=== PATIENT | male | born 1950 | race Caucasian/White ===

== ENCOUNTER 2017-01-21 05:56 | Inpatient (IN) | payer OTHER ==
--- NOTE | 2017-01-01 10:12 | PAT Medication Instructions ---
Service Date Jan 01, 2017. Current Home Medication List Rooks (Rooks), 1,300 MG PO HS Amlodipine (Norvasc), 5 MG PO QAM Aspirin (Aspirin Ec), 81 MG PO QPM Atorvastatin (Lipitor), 40 MG PO HS Celecoxib (Celebrex), 2 CAP PO QAM Citalopram Hydrobromide (Citalopram Hydrobromide), 1 TAB PO QAM Furosemide (Lasix), 40 MG PO QAM Gabapentin (Neurontin), 100 MG PO TID Magnesium Oxide (Mag-Ox), 400 MG PO BID Methylcellulose (Laxative) (Citrucel Fiber Laxative), 15 ML PO QPM Metoprolol Succinate (Toprol Xl), 25 MG PO QAM Multivitamin (Multivitamin), 1 TAB PO QAM Nitroglycerin (Nitrostat), 0.4 MG UT PRN Oxycodone/Acetaminophen 5MG/325MG (Percocet 5MG/325MG), 1-2 TABLETS PO Q4H PRN for Pain Terazosin Hcl (Hytrin), 10 MG PO HS Tizanidine (Zanaflex), 4 MG PO HS PRN for therapeutic program worker Instructions For Your Scheduled Surgery Celecoxib (Celebrex), 2 CAP PO QAM (check with surgeon for instructions) - Hold the following medications the morning of surgery: Multivitamin (Multivitamin), 1 TAB PO QAM Magnesium Oxide (Mag-Ox), 400 MG PO BID Furosemide (Lasix), 40 MG PO QAM Tizanidine (Zanaflex), 4 MG PO HS PRN for RN - Take the following medications the morning of surgery with a sip of water: Nitroglycerin (Nitrostat), 0.4 MG UT PRN Gabapentin (Neurontin), 100 MG PO TID Citalopram Hydrobromide (Citalopram Hydrobromide), 1 TAB PO QAM Amlodipine (Norvasc), 5 MG PO QAM Oxycodone/Acetaminophen 5MG/325MG (Percocet 5MG/325MG), 1-2 TABLETS PO Q4H PRN for Pain - Take the following medications as scheduled the night before surgery: Terazosin Hcl (Hytrin), 10 MG PO HS Nitroglycerin (Nitrostat), 0.4 MG UT PRN Magnesium Oxide (Mag-Ox), 400 MG PO BID Methylcellulose (Laxative) (Citrucel Fiber Laxative), 15 ML PO QPM Gabapentin (Neurontin), 100 MG PO TID Atorvastatin (Lipitor), 40 MG PO HS Aspirin (Aspirin Ec), 81 MG PO QPM (check with surgeon for instructions) Oxycodone/Acetaminophen 5MG/325MG (Percocet 5MG/325MG), 1-2 TABLETS PO Q4H PRN for Pain Tizanidine (Zanaflex), 4 MG PO HS PRN for RN Rooks (Rooks), 1,300 MG PO HS If you have any questions please call us at [phone] (Alessandra Dwyer PA-C ) or [phone] or [phone]
[2017-01-01 10:47] LABS: BASO % 0.6 %; BASO ABS # 0.03 K/uL (0-0.2); COMPLETE YES; EOS % 3.5 %; HEMATOCRIT 43.3 % (42-52); IG% 0.2 %; LYMPH % 22.8 %; LYMPH ABS # 1.24 K/uL (1.2-3.4); MEAN CELL VOLUME 90.2 fL (80-100); MEAN CORPUSCULAR HEMOGLOBIN 30.2 pg (25-34); MEAN CORPUSCULAR HGB CONC 33.5 g/dl (32-36); MEAN PLATELET VOLUME 9.2 fL (7.4-10.4); MONO % 12.5 %; NEUT % 60.4 %; PLATELET COUNT 192 K/uL (130-400); WHITE BLOOD COUNT 5.43 K/uL (4.8-10.8)
[2017-01-01 10:54] LABS: URINE APPEARANCE CLEAR (CLEAR); URINE BILIRUBIN NEG (NEG); URINE COLOR YELLOW; URINE NITRITE NEG (NEG); URINE SPECIFIC GRAVITY 1.009 (1.000-1.030); UROBILINOGEN NEG (NEG)
[2017-01-01 10:58] LABS: MANUAL MICROSCOPIC REQUIRED? NO; REVIEW REQ? NO
[2017-01-01 11:15] LABS: BUN/CREATININE RATIO 19.8 (10-20); CALCIUM 9.1 mg/dl (8.5-10.1); CREATININE 0.82 mg/dl (0.60-1.40); POTASSIUM 4.3 mmol/L (3.5-5.1)
--- NOTE | 2017-01-19 10:15 | HISTORY & PHYSICAL EXAMINATION ---
DATE OF ADMISSION: 01/21/2017 HISTORY OF PRESENT ILLNESS: The patient presents to our office with the complaint of lower back and buttock pain. He noted a foot drop beginning in May of 2016 on the left. He does have an AFO, but says it does not fit him properly, therefore, does not wear it. He is requiring the use of a cane for ambulation since May 2016 as well. He has back pain, describes the pain across the lumbar spine, down both legs, left worse than right. He developed bilateral buttock, anterior thigh, numbness along the medial left foot. Denies bowel or bladder dysfunction or saddle paresthesias. Pain does awaken him at night. He has trialed point of care technician without relief. Takes Percocet, Zanaflex on a sparing basis for pain control. PAST MEDICAL HISTORY: Significant for cardiac disease including 1 stents in July 2006, hypertension, BPH, sleep apnea, arthritis. PAST SURGICAL HISTORY: Significant for left knee arthroscopy 1980, right hand surgery, right knee arthroscopy in 2000, heart catheterization in 2005, repair of ruptured right femoral artery July 2006, right shoulder surgery 2006, revision right shoulder surgery 2007, hardware removal right shoulder 2008, left knee arthroscopy 2008, and right shoulder scapulothoracic fusion April 2010. MEDICATIONS: Include Percocet 5/325 q. 4 hours p.r.n., furosemide 40 mg 1 tab in the morning, Norvasc 5 mg daily, Zocor 40 mg at bedtime, Celebrex 200 mg a day, Hytrin 10 mg at bedtime, Zanaflex 4 mg at bedtime p.r.n., Toprol-XL 25 mg daily, Nasacort 1 spray each nostril daily, Plavix 75 mg in the morning, NitroQuick p.r.n., magnesium oxide 400 mg twice a day, Citrucel 1 tablespoon daily, alfalfa tablet 650 mg 2 tabs at bedtime, aspirin 325 mg in the morning and a CPAP machine. ALLERGIES: INCLUDE FLOMAX AND SULFA. SOCIAL HISTORY: He is . He has 1 child. He is retired. Denies alcohol. Denies tobacco. REVIEW OF SYSTEMS: Significant for joint pain, stiffness, and muscle pain. FAMILY HISTORY: Noncontributory. PHYSICAL EXAMINATION: VITAL SIGNS: He is 6 feet 4 inches. HEENT: Speech appropriate. CARDIOPULMONARY: No gross abnormalities. ABDOMEN: Soft, nontender. GENITOURINARY: Deferred. NEUROLOGIC: Cranial nerves II-XII grossly intact. MUSCULOSKELETAL: He ambulates with a cane and has extremely antalgic gait on the left. He is unable to toe walk and heel walk on the left. He has 1/4 patellar and Achilles reflexes. Negative tension signs. He has left-sided foot drop. Breakaway weakness also over the left quadriceps and hamstring. Strength is intact right leg. No evidence of ankle clonus. ASSESSMENT: Severe neural foraminal stenosis L4-5, severe central stenosis L1 through S1. PLAN: At this point in time, we have discussed surgical intervention which would require lumbar decompression L1 through S1 with instrumented fusion T10-S1 including iliac bolts bilaterally. He understands this will not improve his foot drop. The goal of surgery is to improve quality of life and leg radicular leg pain. Risks, benefits, pros, and cons are outlined with him in detail. He would like to proceed with the above-mentioned surgical planning.
[~2017-01-21] VITALS: Ht 193 cm; Wt 114.5 kg
[2017-01-21] VITALS (7 sets, daily range): BP systolic 101–173; BP diastolic 55–80; PULSE 78–102; TEMP 36.4–37.1; O2SAT 96–100; Ht 193 cm; Wt 114.5 kg
[~2017-01-21 05:56] MED LIST: CLB100 PO; OXYC-57 PO
[2017-01-21] MEDS ORDERED: CEFAZOLIN 2000 MG/60 ML D5W IV SCH (06:00)
[2017-01-21] MEDS ORDERED: LACTATED RINGER'S 1000ML 1,000 ML IV SCH (06:00)
[2017-01-21] MEDS ORDERED: MIDAZOLAM HCL 1 MG/ML 2ML VIAL ONE (06:41)
[2017-01-21] MEDS ORDERED: FENTANYL CITRATE INJ 50 MCG/1 ML 2 ML VIAL ONE ×6 (06:41→12:46)
[2017-01-21] MEDS ORDERED: ALBUMIN HUMAN 5% 12.5 GM/250 ML VIAL IV ONE (06:48)
[2017-01-21] MEDS ORDERED: BACITRACIN 50000 UNIT VIAL ONE ×2 (06:54→10:56)
[2017-01-21] MEDS ORDERED: BUPIVACAINE/EPINEPHRINE 0.5% MPF 1:200,000 30 ML VIAL ONE (06:54)
[2017-01-21] MEDS ORDERED: SODIUM CHLORIDE 0.9% PF 50 ML VIAL ONE (06:54)
--- NOTE | 2017-01-21 07:35 | History & Physical Bridge Note ---
H&P Re-Evaluation Bridge Note: I have examined the patient, reviewed the History & Physical and in the interval since the performance of the History & Physical I have noted the following changes of clinical significance: No changes noted
[2017-01-21] MEDS ORDERED: THROMBIN FOR SOLN 20000 UNIT KIT ONE ×2 (07:53→08:29)
[2017-01-21] MEDS ORDERED: HYDROmorphone INJ 2 MG/ML SYR/VIAL ONE ×4 (08:13→12:46)
[2017-01-21] MEDS ORDERED: ATROPINE SULFATE 0.1 MG/ML 5ML SYR IV PRN (08:45)
[2017-01-21] MEDS ORDERED: LABETALOL HCL IV 5 MG/ML 20ML IV PRN (08:45)
[2017-01-21] MEDS ORDERED: ONDANSETRON INJ 2 MG/ML 2 ML VIAL IV PRN ×2 (08:45→12:30)
[2017-01-21] MEDS ORDERED: MEPERIDINE HCL 25 MG/ML CARP IV PRN (08:45)
[2017-01-21] MEDS ORDERED: EpHEDrine SULFATE INJ 50 MG/ML AMP IV PRN (08:45)
[2017-01-21] MEDS ORDERED: FENTANYL CITRATE INJ 50 MCG/1 ML 2 ML VIAL IV PRN (08:45)
[2017-01-21] MEDS ORDERED: HYDROmorphone INJ 1 MG/ML SYR IV PRN (08:45)
[2017-01-21] MEDS ORDERED: VOLUVEN IN NSS ONE (09:22)
[2017-01-21 10:45] LABS: HEMATOCRIT 32.4 % (42-52)
[2017-01-21 11:38] LABS: HEMATOCRIT 29.9 % (42-52)
[2017-01-21] MEDS ORDERED: LIDOCAINE HCL 2% 2 ML VIAL (20MG/ML) ONE (12:07)
[2017-01-21] MEDS ORDERED: ROCURONIUM BROMIDE 10 MG/ML 5 ML VIAL ONE ×2 (12:07→12:48)
[2017-01-21] MEDS ORDERED: PROPOFOL IV EMULSION 10 MG/ML 20 ML VIAL IV ONE (12:07)
[2017-01-21] MEDS ORDERED: DEXAMETHASONE SOD INJ 4 MG/ML VIAL ONE (12:07)
[2017-01-21] MEDS ORDERED: ONDANSETRON INJ 2 MG/ML 2 ML VIAL ONE ×3 (12:07→12:48)
[2017-01-21] MEDS ORDERED: CALCIUM CHLORIDE 10% 10 ML SYR ONE (12:22)
[2017-01-21] MEDS ORDERED: PHENYLEPHRINE 100MCG/ML 5ML SYR ONE ×2 (12:22→12:48)
[2017-01-21] MEDS ORDERED: EpHEDrine SULFATE 50MG/5ML SYR ONE ×2 (12:22→12:48)
[2017-01-21] MEDS ORDERED: CEFAZOLIN SOD 1 GM VIAL ONE (12:22)
[2017-01-21] MEDS ORDERED: SODIUM CHLORIDE 0.9% 1000ML 1,000 ML IV SCH (12:28)
--- NOTE | 2017-01-21 12:28 | [facility] Post Operative Brief Note ---
Immediate Operative Summary Operative Date Jan 21, 2017. Pre-Operative Diagnosis Severe neural foraminal stenosis L4-5, severe central stenosis L1 through S1. Post-Operative Diagnosis same as pre-operative Procedure(s) Performed T11-S1 Lumbar Laminectomy, Decompression, Pedicle Screw Fixation, Placement of Interbody Device L4-L5 L5-S1, Posterior Spinal Fusion T11-S1 Posterolateral Fusion, Application of Radha, Bone Morphogenetic Protein, Iliac [place] Fixation , Prophylactic use of Duraseal Surgeon Dr. Tavo Pierce Rn Trauma Surgeon(s) Becky Cowart PA-C Estimated Blood Loss 2 liters Findings stenosis Specimens none per surgeon
[2017-01-21] MEDS ORDERED: FLOSEAL HEMOSTATIC MATRIX 10ML TOP ONE (12:29)
[2017-01-21] MEDS ORDERED: ACETAMINOPHEN IV 100 ML IV PRN (12:30)
[2017-01-21] MEDS ORDERED: ALUMINUM/MAGNESIUM SUSP 30 ML UDC PO PRN (12:30)
[2017-01-21] MEDS ORDERED: NALOXONE HCL 0.4 MG/1 ML VIAL/CARP IV PRN ×2 (12:30)
[2017-01-21] MEDS ORDERED: BISACODYL 10 MG SUPP PR PRN (12:30)
[2017-01-21] MEDS ORDERED: SOD PHOSPHATE/SOD BIPHOSPHATE ENEMA 132 ML BTL PR PRN (12:30)
[2017-01-21] MEDS ORDERED: FAMOTIDINE 20 MG TAB PO PRN (12:30)
[2017-01-21] MEDS ORDERED: PROMETHAZINE HCL INJ 12.5 MG in SODIUM CHLORIDE 0.9% 50ML 50 ML IV PRN (12:30)
[2017-01-21] MEDS ORDERED: HYDROmorphone HCL 0.5MG/ML 50 ML CASSETTE IV PRN (12:30)
[2017-01-21] MEDS ORDERED: DO NOT ADMINISTER FLU VACCINE PRN ×3 (12:30)
[2017-01-21] MEDS ORDERED: METOCLOPRAMIDE HCL INJ 5 MG/ML 2 ML VIAL IV PRN (12:30)
[2017-01-21] MEDS ORDERED: DURASEAL DURAL SEALANT 5ML TOP ONE (12:30)
[2017-01-21] MEDS ORDERED: DO NOT ADMINISTER PNEUMOCOCCAL VACCINE PRN ×2 (12:30)
[2017-01-21] MEDS ORDERED: hydrOXYzine HCL 25 MG TAB PO PRN (12:30)
[2017-01-21] MEDS ORDERED: NITROGLYCERIN 0.4 MG SL PER TAB CHARGE UT PRN (12:30)
[2017-01-21] MEDS ORDERED: MAGNESIUM HYDROXIDE SUSP 30 ML UDC PO PRN (12:30)
[2017-01-21] MEDS ORDERED: LORAZEPAM INJ 0.5 MG in SYRINGE 0 ML IV PRN (12:30)
[2017-01-21] MEDS ORDERED: LORAZEPAM 0.5 MG TAB PO PRN (12:30)
[2017-01-21] MEDS ORDERED: NEOSTIGMINE METHYLSULFATE 1 MG/ML 10ML VIAL ONE (12:48)
[2017-01-21] MEDS ORDERED: GLYCOPYRROLATE INJ 0.2 MG/ML VIAL ONE (12:48)
[2017-01-21] MEDS ORDERED: HYDROmorphone HCL 0.5MG/ML 50 ML CASSETTE ONE (13:02)
--- NOTE | 2017-01-21 13:21 | OPERATIVE REPORT ---
DATE OF OPERATION: 01/21/2017 PREOPERATIVE DIAGNOSIS: Spinal stenosis. POSTOPERATIVE DIAGNOSIS: Same. PROCEDURE PERFORMED: 1. Lumbar decompression, medial facetectomy, and foraminotomy L1-L2, L2-L3, L3-L4, L4-5, L5-S1. 2. Posterior spinal fusion T10-S1. 3. Bilateral SI joint fusion. 4. Placement of posterior segmental instrumentation using Medicrea rods and screws at T11-S1 including bilateral iliac bolts and a crosslink. 5. Interbody fusion L4-L5 and L5-S1. 6. Placement of PEEK cage 12 x 26 mm at L4-L5 and 14 x 26 at L5-S1. 7. Placement of locally harvested morcellized autograft in posterior gutters. 8. Placement of Infuse collagen sponge combined with Mastergraft in posterior gutters and Radha bone grafting in the interbody spaces. SURGEON: Dr. Tavo Pierce. TRACK SURFACING MACHINE OPERATOR: Due to the complex nature of the procedure, the entire surgery was performed with the oceanographer assistant of Becky Cowart PA-C. The health assistant, under direct supervision, was involved in the actual performance of all aspects of the surgical procedure including hemostasis, tissue retraction and incision, instrument management, patient positioning, and wound closure. ANESTHESIA: General. DISPOSITION: The patient awakened and taken to PACU in stable condition. HISTORY OF PATIENT'S PROBLEMS: This is a 66-year-old male that presents with above-mentioned diagnosis. After failing an extensive course of nonoperative care, elected to undergo the above-mentioned procedure. Risks, benefits, pros, cons, and alternatives were outlined in detail preoperatively. OPERATION AND FINDINGS: The patient was met with preoperatively, the case discussed and all questions were addressed. At that point the patient was taken back to operative suite and after undergoing successful general endotracheal intubation by incision of the foot was placed in prone position on Aron table atop Robe frame. All bony prominences were well padded and the eyes were inspected to ensure there was no external pressure placed upon them. At this point, the lumbar spine was prepped and draped in normal sterile fashion. Sharp dissection with the assistance of Bovie cautery performed down to and exposing the lamina and transverse processes of T10, T11, T12, and L1, L2, L3, L4, L5 and the bilateral sacral ala and SI joints. From a caudal to cephalad fashion, complete laminectomy of L5, L4, L3, L2 and L1 was performed addressing severe central lateral recess and foraminal disease. After this was complete, pedicle screws were then placed in T11-T12, L1, L2, L3, L4, L5 and S1 levels as well as bilateral iliac bolts through a transforaminal approach on the right, a complete discectomy of L5-S1 was performed, endplates curetted to subcortical bleeding bone and a 14 x 26 mm PEEK cage filled with Radha bone grafting tapped into position. I then proceeded to L4-L5 and again through a transforaminal approach on the right, a complete discectomy was performed, endplates curetted to subcortical bleeding bone and a 12 x 26 mm PEEK cage filled with Radha bone grafting tapped into position. We did appreciate thinning of the dura L4-L5 on the left and placed a few mL of DuraSeal over this region prophylactically. Appropriate size rods were then cut, contoured and locked into final position bilaterally including a crosslink and the transverse processes of T10, T11, T12, L1, L2, L3, L4, L5 and sacral ala bilateral SI joints were then burred to subcortical bleeding bone. Infused collagen sponge combined with Mastergraft and locally harvested, autograft was packed in the SI joint and in the posterolateral gutters T10 to the ala. A 7 flat SUSANNA drain was inserted. Incision was closed with 1-0 Vicryl in the fascia, 2-0 Vicryl subcutaneously, 4-0 Monocryl for final skin closure. Steri-Strips and sterile dressing placed. The patient was awakened and taken to PACU in stable condition. I attest to the content of the Intraoperative Record and any orders documented therein. Any exceptio ns are noted below.
[2017-01-21 13:26] LABS: HEMATOCRIT 30.8 % (42-52)
--- NOTE | 2017-01-21 13:43 | Anesthesiology Progress Note ---
Anesthesia Post Op Note Date & Time Jan 21, 2017 at 13:42 Vital Signs Pain Intensity: 2 Vital Signs Past 12 Hours Date Time Temp Pulse Resp B/P Pulse Ox O2 Delivery O2 Flow Rate FiO2 01/21/17 13:30 36.4 83 14 114/52 99 Nasal Cannula 4 01/21/17 13:20 92 14 110/49 100 Mask 10 01/21/17 13:10 84 14 124/53 100 Mask 10 01/21/17 13:00 36.3 87 16 127/51 100 Mask 10 01/21/17 06:20 36.8 78 20 173/80 96 Room Air Notes Mental Status: alert / awake / arousable, participated in evaluation Pt Amnestic to Procedure: Yes Nausea / Vomiting: adequately controlled Pain: adequately controlled Airway Patency, RR, SpO2: stable & adequate BP & HR: stable & adequate Hydration State: stable & adequate Anesthetic Complications: no major complications apparent
--- NOTE | 2017-01-21 13:50 | DIAGNOSTIC IMAGING REPORT ---
LUMBAR SPINE, INTRAOPERATIVE FLUOROSCOPY HISTORY: T10-S1 fusion. FLUOROSCOPY TIME: 57 seconds. FINDINGS: Intraoperative fluoroscopy was provided for the lumbar spine. 5 fluoroscopic spot images were obtained. Posterior decompression and fusion from T10 through S1 with pedicle screws and rods. There are bilateral iliac bolts. The hardware appears intact. IMPRESSION: Fluoroscopy provided for a T10-S1 posterior decompression fusion. Electronically signed by: Sai Puckett M.D. 01/21/2017 1:49 PM Dictated Date/Time: 01/21/2017 1:48 PM
[2017-01-21] MEDS ORDERED: GABAPENTIN 100 MG CAP PO SCH (14:00)
[2017-01-21] MEDS: SODIUM CHLORIDE 0.9% 1000ML 1,000 ML IV SCH ×2 (15:10→18:54)
--- NOTE | 2017-01-21 15:48 | Medical Consult ---
Consultation Date of Consultation: Jan 21, 2017. Attending Physician: Tavo Pierce D.O. Reason for Consultation: postop medical management History of Present Illness This is a 66 year old male with PMH of CAD s/p stent 2005, HTN, HL, sleep apnea on CPAP, BPH, who underwent T11-S1 decompression/ fusion by Dr. Pierce today. Estimated blood loss was 2 liters. He was transfused 1 unit of blood in the OR. Hg dropped from 11.1 to 9.8 then 10.0. Patient had presented with back pain with radicular pain and left foot drop. Pt reports postop back soreness rated 4/ 10 now improving with ELECTRIC DOLLY OPERATOR pump. Patient denies fever, dizziness, chest pain, SOB , N/V, change in bowel or bladder movements. Has Youssef catheter in place. Past Medical/Surgical History Medical Problems: (1) BPH (benign prostatic hypertrophy) Status: Chronic (2) CAD (coronary artery disease) Status: Chronic (3) Depression Status: Chronic (4) Dyslipidemia Status: Chronic (5) HTN (hypertension) Status: Chronic (6) LOLI on CPAP Status: Chronic Surgical Problems: (1) H/O shoulder surgery Permanent Comment: open repair AC dislocation Status: Resolved (2) History of total right knee replacement Status: Chronic (3) Hx of cardiac cath Permanent Comment: with stent placement 2005 Status: Resolved (4) S/P left knee arthroscopy Status: Resolved Family History Cardiac disorder FATHER MOTHER Diabetes mellitus MOTHER Hypertension MOTHER Social History Smoking Status: Former Smoker (quit decades ago. smoked pipe for less than 1 year. ) Alcohol Use: none Drug Use: none Marital Status: Housing Status: lives with significant other Occupation Status: retired Allergies Coded Allergies: Tamsulosin (Verified Allergy, Unknown, ITCHY RASH, 01/21/17) Sulfa Antibiotics (Verified Adverse Reaction, Unknown, rash/prurits per PCP records , 01/21/17) PATIENT HAS OTHER MEDS CONTAINING SULFA WITH NO ISSUE Home Medications Active Reported Senokot (Sennosides) 8.6 Mg Tab 1 Tab PO HS PRN Gabapentin 100 Mg Cap 200 Mg PO HS Aspirin Ec (Aspirin) 81 Mg Tab 81 Mg PO QPM Nitrostat (Nitroglycerin) 0.4 Mg Tab 0.4 Mg UT UD PRN Celebrex (Celecoxib) 100 Mg Cap 2 Cap PO QAM 30 Days Neurontin (Gabapentin) 100 Mg Cap 100 Mg PO BID Percocet 5MG/325MG (Oxycodone/Acetaminophen) Tab 1-2 Tablets PO Q4H PRN PAIN [place] 650 Mg Tab 1,300 Mg PO HS Multivitamin (Multivitamins) Tab 1 Tab PO QAM Citrucel Fiber Laxative (Methylcellulose (Laxative)) 1 Pow Pow 15 Ml PO QPM Mag-Ox (Magnesium Oxide) 400 Mg Tab 400 Mg PO BID Toprol Xl (Metoprolol Succinate) 25 Mg Tabcr 25 Mg PO QAM Zanaflex (Tizanidine HCl) 4 Mg Cap 4 Mg PO HS PRN Citalopram Hydrobromide 10 Mg Tab 1 Tab PO QAM 90 Days Hytrin (Terazosin HCl) 10 Mg Cap 10 Mg PO HS Lipitor (Atorvastatin Calcium) 40 Mg Tab 40 Mg PO HS Norvasc (Amlodipine Besylate) 5 Mg Tab 5 Mg PO QAM Lasix (Furosemide) 40 Mg Tab 40 Mg PO QAM Current Inpatient Medications Current Inpatient Medications Medications (Trade) Dose Ordered Sig/Rachel Route Start Time Stop Time Status Last Admin Dose Admin Cefazolin Sodium 60 ml @ 100 mls/hr PREOP IV 01/21/17 06:00 01/21/17 18:00 01/21/17 07:39 100 MLS/HR Lactated Ringer's 1,000 ml @ 15 mls/hr Q24H IV 01/21/17 06:00 01/22/17 05:59 01/21/17 06:40 15 MLS/HR Dexamethasone Sodium Phosphate 6 mg/Syringe 1.5 ml @ 1 mls/min Q8H IV 01/21/17 16:00 01/22/17 08:02 Promethazine HCl/ Sodium Chloride (Phenergan Inj/ Nss 50ml) 50.5 ml @ 202 mls/hr Q6H PRN IV 01/21/17 12:30 02/20/17 12:29 Ondansetron HCl (Zofran Inj) 4 mg Q6H PRN IV 01/21/17 12:30 02/20/17 12:29 Metoclopramide HCl (Reglan Inj) 10 mg Q6H PRN IV 01/21/17 12:30 02/20/17 12:29 Lorazepam 0.5 mg 0.5 mg Q8H PRN PO 01/21/17 12:30 02/20/17 12:29 Lorazepam/Syringe (Ativan Inj/ Syringe) 0.25 ml @ 1 mls/min Q8H PRN IV 01/21/17 12:30 02/20/17 12:29 Pneumococcal Polysaccharide Vaccine 1 ea PRN PRN N/A 01/21/17 12:30 02/20/17 12:29 Influenza Virus Vacc Triv Types A&B 1 ea PRN PRN N/A 01/21/17 12:30 02/20/17 12:29 Polyethylene (Miralax Powder Packet) 17 gm Q6 PO 01/23/17 06:00 02/22/17 05:59 Bisacodyl (Dulcolax Supp) 10 mg DAILY PRN NH 01/21/17 12:30 02/20/17 12:29 Magnesium Hydroxide (Milk Of Magnesia Susp) 30 ml DAILY PRN PO 01/21/17 12:30 02/20/17 12:29 Hydromorphone HCl (Dilaudid Inj) 0.5-1mg prn moder... Q3H PRN IV 01/22/17 06:00 02/05/17 05:59 Oxycodone HCl 5-10mg prn moderate to sev... Q4H PRN PO 01/22/17 06:00 02/05/17 05:59 Cefazolin Sodium 2000 mg/Dextrose 60 ml @ 100 mls/hr Q8H IV 01/21/17 20:00 01/22/17 04:35 Sodium Chloride (Nss 1000ml) 1,000 ml @ 150 mls/hr Q6H40M IV 01/21/17 12:28 02/20/17 12:27 01/21/17 15:10 150 MLS/HR Acetaminophen 1000 mg 1,000 mg Q8H PRN PO 01/21/17 12:30 02/20/17 12:29 Acetaminophen (Ofirmev Iv) 100 ml @ 400 mls/hr Q8H PRN IV 01/21/17 12:30 02/20/17 12:29 Naloxone HCl (Narcan Inj) 0.1 mg Q5M PRN IV 01/21/17 12:30 02/20/17 12:29 Senna/Docusate Sodium (Senokot S Tab) 2 tab HS PO 01/21/17 21:00 02/20/17 20:59 Sodium Biphosphate/ Sodium Phosphate (Fleet Enema) 132 ml ONE PRN NH 01/21/17 12:30 02/20/17 12:29 Hydroxyzine HCl (Vistaril Tab) 25 mg Q8H PRN PO 01/21/17 12:30 02/20/17 12:29 Al Hydroxide/Mg Hydroxide (Maalox Susp) 30 ml Q6H PRN PO 01/21/17 12:30 02/20/17 12:29 Famotidine (Pepcid Tab) 20 mg Q12 PRN PO 01/21/17 12:30 02/20/17 12:29 Diphenhydramine HCl (Benadryl Cap) 25 mg Q6H PRN PO 01/21/17 12:30 02/20/17 12:29 Miscellaneous Information (Discontinue ELECTRIC DOLLY OPERATOR) 1 ea TODAY@0600 N/A 01/22/17 06:00 01/22/17 06:01 Naloxone HCl (Narcan Inj) 0.1 mg Q5M PRN IV 01/21/17 12:30 01/22/17 06:00 Hydromorphone HCl 25 mg 25 mg PRN PRN IV 01/21/17 12:30 01/22/17 06:00 Sodium Chloride (Nss 1000ml) 1,000 ml @ 15 mls/hr Q24H IV 01/21/17 12:28 01/22/17 06:00 Amlodipine Besylate (Norvasc Tab) 5 mg QAM PO 01/22/17 09:00 02/21/17 08:59 Aspirin (Ecotrin Tab) 81 mg QPM PO 01/21/17 21:00 02/20/17 20:59 Atorvastatin Calcium (Lipitor Tab) 40 mg HS PO 01/21/17 21:00 02/20/17 20:59 Furosemide (Lasix Tab) 40 mg QAM PO 01/22/17 09:00 02/21/17 08:59 Gabapentin (Neurontin Cap) 100 mg TID PO 01/21/17 14:00 02/20/17 13:59 Magnesium Oxide (Mag-Ox Tab) 400 mg BID PO 01/21/17 21:00 02/20/17 20:59 Metoprolol Succinate (Toprol Xl Tab) 25 mg QAM PO 01/22/17 09:00 02/21/17 08:59 Nitroglycerin (Nitrostat Tab) 0.4 mg UD PRN UT 01/21/17 12:30 02/20/17 12:29 Terazosin HCl (Hytrin Cap) 10 mg HS PO 01/21/17 21:00 02/20/17 20:59 Review of Systems Constitutional: No fatigue, No fever Eyes: No worsening of vision ENT: No nasal symptoms Respiratory: No cough, No shortness of breath Cardiovascular: No chest pain, No edema Abdomen: No nausea, No problem reported (no change in bm. last bm yesterday), No vomiting Musculoskeletal: + problem reported (back pain see hpi) Genitourinary - Male: + problem reported (no change in bladder movements. youssef in place. ) Neurologic: + weakness (chronic left foot drop), No numbness/tingling Psychiatric: No depression symptoms Physical Exam Date Time Temp Pulse Resp B/P Pulse Ox O2 Delivery O2 Flow Rate FiO2 01/21/17 14:30 36.5 87 16 121/65 98 Room Air 3.0 01/21/17 14:00 Nasal Cannula 3.0 01/21/17 14:00 Nasal Cannula 3.0 01/21/17 14:00 36.6 88 18 130/55 99 Nasal Cannula 3.0 01/21/17 13:40 36.4 81 16 123/52 99 Nasal Cannula 4 01/21/17 13:30 36.4 83 14 114/52 99 Nasal Cannula 4 01/21/17 13:20 92 14 110/49 100 Mask 10 01/21/17 13:10 84 14 124/53 100 Mask 10 01/21/17 13:00 36.3 87 16 127/51 100 Mask 10 01/21/17 06:20 36.8 78 20 173/80 96 Room Air General Appearance: WD/WN, no apparent distress, + pertinent finding (pleasant alert 66 year old male, in bed eating lunch, no distress, and son at bedside) Head: normocephalic, atraumatic Eyes: normal inspection, PERRL ENT: hearing grossly normal, pharynx normal Neck: supple, trachea midline Respiratory/Chest: lungs clear, normal breath sounds, no respiratory distress, no accessory muscle use Cardiovascular: regular rate, rhythm, no murmur Abdomen/GI: normal bowel sounds, non tender, soft Genitourinary - Male: + pertinent finding (youssef draining clear yellow urine) Back: + pertinent finding (s/p lumbar surgery, drain in place with sanguinous drainage) Extremities/Musculoskelatal: no calf tenderness, no pedal edema, + pertinent finding (SCDs in place) Neurologic/Psych: alert, normal mood/affect, oriented x 3, + pertinent finding (sensation to light touch grossly intact bilateral feet. chronic left foot drop. ) Skin: normal color, warm/dry Laboratory Results Last 24 Hours Test 01/21/17 10:30 01/21/17 11:28 01/21/17 13:18 Hemoglobin 11.1 g/dL 9.8 g/dL 10.0 g/dL Hematocrit 32.4 % 29.9 % 30.8 % Assessment & Plan S/P T11-S1 LUMBAR DECOMPRESSION/ FUSION POD #[address] Pierce Pain control and bowel regimen Activity and wound care per ortho Continue incentive spirometry PT/ OT ACUTE BLOOD LOSS ANEMIA Due to surgery; EBL 2 liters Transfused 1 unit in OR Hg 11.1 -> 9.8 -> 10.0 Monitor daily H/H CAD S/P STENT 2005 Stable; no cardiac symptoms Aspirin resumed by ortho Continue beta chuck and statin LOLI Continue CPAP HTN BP is stable Continue metoprolol and amlodipine Hold Lasix for now- reassess volume status in am DYSLIPIDEMIA Continue statin BPH Continue terazosin DEPRESSION Continue Celexa DVT PROPHYLAXIS Per ortho DISPOSITION Per ortho Patient seen in collaboration with Dr. Bee Butt. Please see her addendum. Pt will be followed by Dr. Byers tomorrow.
[2017-01-21] MEDS: DEXAMETHASONE INJ 6 MG in SYRINGE 0 ML IV SCH ×2 (16:30→23:30)
--- NOTE | 2017-01-21 17:00 | Progress Note ---
Progress Note Date of Service Jan 21, 2017. Progress Note Patient was seen and evaluated with SHARRI Mai, Patient is status post lumbar surgery today Pain is controlled. Denies any chest pain, SOB, nausea, vomiting, fever, chills. Did lose 2 L blood during surgery EXAM: Gen: AAOX3, no distress Neck: No JVD Lungs: AEBE, no wheezing, crackles Heart-s2, s2 normal Back- S/P back surgery A/P: S/P T11-S1 LUMBAR DECOMPRESSION/ FUSION POD #[address] Pierce -Pain control and bowel regimen -Activity and wound care per ortho -Continue incentive spirometry -PT/ OT ACUTE BLOOD LOSS ANEMIA Due to surgery; EBL 2 liters -Transfused 1 unit in OR -Hg 11.1 -> 9.8 -> 10.0 -Monitor daily H/H CAD S/P STENT 2005 Stable; no cardiac symptoms -Aspirin resumed by ortho -Continue beta chuck and statin LOLI -Continue CPAP HTN BP is stable -Continue metoprolol and amlodipine -Hold Lasix for now- reassess volume status in am and accordingly re start DYSLIPIDEMIA Continue statin BPH Continue terazosin DEPRESSION Continue Celexa DVT PROPHYLAXIS Per ortho
[2017-01-21] MEDS: CEFAZOLIN IV 2,000 MG in DEXTROSE 5% 50ML 50 ML IV SCH (20:49)
[2017-01-21 20:50] LABS: HEMATOCRIT 29.4 % (42-52)
[2017-01-21] MEDS: ASPIRIN 81 MG ECTAB PO SCH (20:50)
[2017-01-21] MEDS: GABAPENTIN 100 MG CAP PO SCH (20:51)
[2017-01-21] MEDS: MAGNESIUM OXIDE 400 MG TAB PO SCH (20:51)
[2017-01-21] MEDS: ATORVASTATIN 40 MG TAB PO SCH (20:51)
[2017-01-21] MEDS: DOCUSATE SODIUM/SENNA 50/8.6MG TAB PO SCH (20:51)
[2017-01-22] VITALS (14 sets, daily range): BP systolic 112–141; BP diastolic 56–71; PULSE 83–103; TEMP 36.8–37.3; O2SAT 93–100
[2017-01-22] MEDS: SODIUM CHLORIDE 0.9% 1000ML 1,000 ML IV SCH ×2 (01:38→08:11)
[2017-01-22] MEDS: CEFAZOLIN IV 2,000 MG in DEXTROSE 5% 50ML 50 ML IV SCH (04:16)
[2017-01-22] MEDS ORDERED: DC PCA SCH (06:00)
[2017-01-22] MEDS ORDERED: HYDROmorphone INJ 0.5 MG/0.5 ML SYR IV PRN (06:00)
[2017-01-22 06:46] LABS: HEMATOCRIT 26.7 % (42-52); IG% 0.1 %; LYMPH % 5.9 %; LYMPH ABS # 0.62 K/uL (1.2-3.4); MEAN CELL VOLUME 92.7 fL (80-100); MEAN CORPUSCULAR HEMOGLOBIN 30.2 pg (25-34); MEAN CORPUSCULAR HGB CONC 32.6 g/dl (32-36); MEAN PLATELET VOLUME 8.9 fL (7.4-10.4); MONO % 9.4 %; NEUT % 84.6 %; PLATELET COUNT 161 K/uL (130-400); RED BLOOD COUNT 2.88 M/uL (4.7-6.1); WHITE BLOOD COUNT 10.43 K/uL (4.8-10.8)
[2017-01-22 07:18] LABS: BUN/CREATININE RATIO 14.3 (10-20); CALCIUM 7.8 mg/dl (8.5-10.1); POTASSIUM 4.1 mmol/L (3.5-5.1)
[2017-01-22 07:37] LABS: COMPLETE YES; ECHINOCYTES 2+
--- NOTE | 2017-01-22 08:07 | Anesthesiology Progress Note ---
Anesthesia Post Op Note Date & Time Jan 22, 2017 at 08:05 Vital Signs Vital Signs Past 12 Hours Date Time Temp Pulse Resp B/P Pulse Ox O2 Delivery O2 Flow Rate FiO2 01/22/17 07:31 97 Room Air 01/22/17 07:18 36.8 96 19 116/67 99 Room Air 01/22/17 03:11 37.3 93 14 112/56 100 Nasal Cannula 3.5 01/21/17 23:25 Nasal Cannula 3.5 01/21/17 23:09 37.1 89 14 101/56 100 Nasal Cannula 3.5 Notes Mental Status: alert / awake / arousable, participated in evaluation Pt Amnestic to Procedure: Yes Nausea / Vomiting: adequately controlled Pain: adequately controlled Airway Patency, RR, SpO2: stable & adequate BP & HR: stable & adequate Hydration State: stable & adequate Anesthetic Complications: no major complications apparent
[2017-01-22] MEDS: DEXAMETHASONE INJ 6 MG in SYRINGE 0 ML IV SCH (08:11)
[2017-01-22] MEDS: AMLODIPINE BESYLATE 5 MG TAB PO SCH (08:14)
[2017-01-22] MEDS: METOPROLOL SUCC 25MG EXT REL TAB PO SCH (08:14)
[2017-01-22] MEDS: MAGNESIUM OXIDE 400 MG TAB PO SCH ×2 (08:15→20:49)
[2017-01-22] MEDS: GABAPENTIN 100 MG CAP PO SCH ×3 (08:15→20:50)
[2017-01-22] MEDS: CITALOPRAM 20 MG TAB PO SCH (08:16)
[2017-01-22] MEDS ORDERED: FUROSEMIDE 40 MG TAB PO SCH (09:00)
[2017-01-22] MEDS: OXYCODONE HCL IR 5 MG TAB (IMMEDIATE RELEASE) PO PRN ×2 (10:28→20:04)
--- NOTE | 2017-01-22 13:50 | Progress Note ---
Medicine Progress Note Date & Time of Visit: Jan 22, 2017 at 13:41. Subjective Pt was seen and examined Lying in bed with no distress Pt said that his pain is under control denies any chest pain, palpitation, dizziness and sob Objective Last 8 Hrs Date Time Temp Pulse Resp B/P Pulse Ox O2 Delivery O2 Flow Rate FiO2 01/22/17 11:04 36.8 101 19 137/71 93 Room Air 01/22/17 07:31 97 Room Air 01/22/17 07:30 Room Air 01/22/17 07:18 36.8 96 19 116/67 99 Room Air Physical Exam: General- No acute distress Head- atraumatic Eyes- PERRL, EOMI ENT- oropharynx clear Neck- supple, no JVD Lungs- clear to auscultation and percussion Heart- regular rhythm; no murmur Abdomen- normal bowel sounds Extremities-no calf tenderness Neuro- alert, oriented x 3; PERRL, EOMI; no facial palsy Skin- warm & dry Laboratory Results: Last 24 Hours Test 01/21/17 20:40 01/22/17 05:30 Hemoglobin 9.9 g/dL 8.7 g/dL Hematocrit 29.4 % 26.7 % White Blood Count 10.43 K/uL Red Blood Count 2.88 M/uL Mean Corpuscular Volume 92.7 fL Mean Corpuscular Hemoglobin 30.2 pg Mean Corpuscular Hemoglobin Concent 32.6 g/dl Platelet Count 161 K/uL Mean Platelet Volume 8.9 fL Neutrophils (%) (Auto) 84.6 % Lymphocytes (%) (Auto) 5.9 % Monocytes (%) (Auto) 9.4 % Eosinophils (%) (Auto) 0.0 % Basophils (%) (Auto) 0.0 % Neutrophils # (Auto) 8.82 K/uL Lymphocytes # (Auto) 0.62 K/uL Monocytes # (Auto) 0.98 K/uL Eosinophils # (Auto) 0.00 K/uL Basophils # (Auto) 0.00 K/uL RDW Standard Deviation 46.6 fL RDW Coefficient of Variation 13.8 % Immature Granulocyte % (Auto) 0.1 % Immature Granulocyte # (Auto) 0.01 K/uL Echinocytes 2+ Sodium Level 140 mmol/L Potassium Level 4.1 mmol/L Chloride Level 106 mmol/L Carbon Dioxide Level 26 mmol/L Anion Gap 8.0 mmol/L Blood Urea Nitrogen 14 mg/dl Creatinine 1.00 mg/dl Est Creatinine Clear Calc Drug Dose 97.9 ml/min Estimated GFR () 89.2 Estimated GFR (Non- 77.0 BUN/Creatinine Ratio 14.3 Random Glucose 152 mg/dl Calcium Level 7.8 mg/dl Assessment & Plan S/P T11-S1 LUMBAR DECOMPRESSION/ FUSION POD #[address] Pierce Pain control and bowel regimen incentive spirometry PT/ OT ACUTE BLOOD LOSS ANEMIA Due to surgery; EBL 2 liters Transfused 1 unit in OR Hg 11.1 -> 9.8 -> 10.0 Hgb 8.7 today continue monitor h/h will transfuse if hgb drops below 8 CAD S/P STENT 2005 Asymptomatic Aspirin resumed by ortho Continue beta chuck and statin stable LOLI Continue CPAP HTN BP is stable Continue metoprolol and amlodipine Will resume lasix in am DYSLIPIDEMIA Continue statin BPH Continue terazosin DEPRESSION Continue Celexa DVT PROPHYLAXIS Per ortho DISPOSITION Per ortho Current Inpatient Medications: Current Inpatient Medications Medications (Trade) Dose Ordered Sig/Rachel Route Start Time Stop Time Status Last Admin Dose Admin Promethazine HCl/ Sodium Chloride (Phenergan Inj/ Nss 50ml) 50.5 ml @ 202 mls/hr Q6H PRN IV 01/21/17 12:30 02/20/17 12:29 Ondansetron HCl (Zofran Inj) 4 mg Q6H PRN IV 01/21/17 12:30 02/20/17 12:29 Metoclopramide HCl (Reglan Inj) 10 mg Q6H PRN IV 01/21/17 12:30 02/20/17 12:29 Lorazepam 0.5 mg 0.5 mg Q8H PRN PO 01/21/17 12:30 02/20/17 12:29 Lorazepam/Syringe (Ativan Inj/ Syringe) 0.25 ml @ 1 mls/min Q8H PRN IV 01/21/17 12:30 02/20/17 12:29 Pneumococcal Polysaccharide Vaccine 1 ea PRN PRN N/A 01/21/17 12:30 02/20/17 12:29 Influenza Virus Vacc Triv Types A&B 1 ea PRN PRN N/A 01/21/17 12:30 02/20/17 12:29 Polyethylene (Miralax Powder Packet) 17 gm Q6 PO 01/23/17 06:00 02/22/17 05:59 Bisacodyl (Dulcolax Supp) 10 mg DAILY PRN AR 01/21/17 12:30 02/20/17 12:29 Magnesium Hydroxide (Milk Of Magnesia Susp) 30 ml DAILY PRN PO 01/21/17 12:30 02/20/17 12:29 Hydromorphone HCl (Dilaudid Inj) 0.5-1mg prn moder... Q3H PRN IV 01/22/17 06:00 02/05/17 05:59 Oxycodone HCl 5-10mg prn moderate to sev... Q4H PRN PO 01/22/17 06:00 02/05/17 05:59 01/22/17 10:28 10 MG Sodium Chloride (Nss 1000ml) 1,000 ml @ 150 mls/hr Q6H40M IV 01/21/17 12:28 02/20/17 12:27 01/22/17 08:11 150 MLS/HR Acetaminophen 1000 mg 1,000 mg Q8H PRN PO 01/21/17 12:30 02/20/17 12:29 Acetaminophen (Ofirmev Iv) 100 ml @ 400 mls/hr Q8H PRN IV 01/21/17 12:30 02/20/17 12:29 Naloxone HCl (Narcan Inj) 0.1 mg Q5M PRN IV 01/21/17 12:30 02/20/17 12:29 Senna/Docusate Sodium (Senokot S Tab) 2 tab HS PO 01/21/17 21:00 02/20/17 20:59 01/21/17 20:51 2 TAB Sodium Biphosphate/ Sodium Phosphate (Fleet Enema) 132 ml ONE PRN [place] 01/21/17 12:30 02/20/17 12:29 Hydroxyzine HCl (Vistaril Tab) 25 mg Q8H PRN PO 01/21/17 12:30 02/20/17 12:29 Al Hydroxide/Mg Hydroxide (Maalox Susp) 30 ml Q6H PRN PO 01/21/17 12:30 02/20/17 12:29 Famotidine (Pepcid Tab) 20 mg Q12 PRN PO 01/21/17 12:30 02/20/17 12:29 Diphenhydramine HCl (Benadryl Cap) 25 mg Q6H PRN PO 01/21/17 12:30 02/20/17 12:29 Amlodipine Besylate (Norvasc Tab) 5 mg QAM PO 01/22/17 09:00 02/21/17 08:59 01/22/17 08:14 5 MG Aspirin (Ecotrin Tab) 81 mg QPM PO 01/21/17 21:00 02/20/17 20:59 01/21/17 20:50 81 MG Atorvastatin Calcium (Lipitor Tab) 40 mg HS PO 01/21/17 21:00 02/20/17 20:59 01/21/17 20:51 40 MG Magnesium Oxide (Mag-Ox Tab) 400 mg BID PO 01/21/17 21:00 02/20/17 20:59 01/22/17 08:15 400 MG Metoprolol Succinate (Toprol Xl Tab) 25 mg QAM PO 01/22/17 09:00 02/21/17 08:59 01/22/17 08:14 25 MG Nitroglycerin (Nitrostat Tab) 0.4 mg UD PRN [place] 01/21/17 12:30 02/20/17 12:29 Terazosin HCl (Hytrin Cap) 10 mg HS PO 01/21/17 21:00 02/20/17 20:59 01/21/17 20:50 10 MG Gabapentin (Neurontin Cap) 100 mg BID@0900,1400 PO 01/22/17 09:00 02/21/17 08:59 01/22/17 08:15 100 MG Gabapentin (Neurontin Cap) 200 mg HS PO 01/21/17 21:00 02/20/17 20:59 01/21/17 20:51 200 MG Citalopram Hydrobromide (celeXA TAB) 10 mg QAM PO 01/22/17 09:00 02/21/17 08:59 01/22/17 08:16 10 MG
--- NOTE | 2017-01-22 14:25 | PROGRESS NOTE ---
DATE: 01/22/2017 SUBJECTIVE: Postop day #1. Back pain controlled. Leg pain improving. Vital signs stable. T-max 37.3. SUSANNA drained 590 mL today. Hematocrit 26.7. PHYSICAL EXAMINATION: He is sitting up in bed, has good strength to testing of the right lower extremity, continued foot drop on the left, this is established. ASSESSMENT: Status post thoracolumbar decompression and fusion. PLAN: At this time, we will transfuse another unit today. Will keep him down today and most likely initiate physical therapy in the a.m. He understands and agrees.
[2017-01-22 17:22] LABS: HEMATOCRIT 26.7 % (42-52)
[2017-01-22] MEDS: ASPIRIN 81 MG ECTAB PO SCH (21:46)
[2017-01-22] MEDS: DOCUSATE SODIUM/SENNA 50/8.6MG TAB PO SCH (21:47)
[2017-01-22] MEDS: ATORVASTATIN 40 MG TAB PO SCH (21:47)
[2017-01-22] MEDS: ACETAMINOPHEN 500 MG TAB PO PRN (23:29)
[2017-01-23] VITALS (17 sets, daily range): BP systolic 104–127; BP diastolic 61–74; PULSE 73–92; TEMP 36.4–37.2; O2SAT 93–98
[2017-01-23] MEDS: POLYETHYLENE (MIRALAX) 17 GM PACK PO SCH ×3 (05:35→18:09)
[2017-01-23 06:38] LABS: HEMATOCRIT 23.7 % (42-52); MEAN CELL VOLUME 91.2 fL (80-100); MEAN CORPUSCULAR HEMOGLOBIN 30.8 pg (25-34); MEAN CORPUSCULAR HGB CONC 33.8 g/dl (32-36); MEAN PLATELET VOLUME 8.9 fL (7.4-10.4); PLATELET COUNT 148 K/uL (130-400); WHITE BLOOD COUNT 8.74 K/uL (4.8-10.8)
[2017-01-23] MEDS ORDERED: NURSING VERBAL MED ORDER ONE ×2 (07:30→20:45)
[2017-01-23] MEDS ORDERED: ACETAMINOPHEN 325 MG TAB PO ONE (08:00)
--- NOTE | 2017-01-23 08:49 | PROGRESS NOTE ---
DATE: 01/23/2017 DATE: 01/23/2017. SUBJECTIVE: Postop day 2. Back pain is controlled. He denies any leg pain, some modest neuropathy, left foot. He denies any nausea, vomiting, headaches. He is tolerating his diet well. Vital signs stable. T-max 36.8. SUSANNA drained 435 last shift. Hematocrit this a.m. 27.3. OBJECTIVE: On exam, he is sitting up in bed. He has good strength to testing, foot drop establish on the left. Appears comfortable. ASSESSMENT: Status post thoracolumbar fusion. PLAN: At this time, we will transfuse 2 units today. Transfer bed to chair only. Plan to advance physical therapy Wednesday pending his progress today.
[2017-01-23] MEDS: FUROSEMIDE 40 MG TAB PO SCH (08:50)
[2017-01-23] MEDS: CITALOPRAM 20 MG TAB PO SCH (08:50)
[2017-01-23] MEDS: METOPROLOL SUCC 25MG EXT REL TAB PO SCH (08:51)
[2017-01-23] MEDS: AMLODIPINE BESYLATE 5 MG TAB PO SCH (08:51)
[2017-01-23] MEDS: GABAPENTIN 100 MG CAP PO SCH ×3 (10:16→20:31)
[2017-01-23] MEDS: MAGNESIUM OXIDE 400 MG TAB PO SCH ×2 (10:16→20:31)
[2017-01-23] MEDS: OXYCODONE HCL IR 5 MG TAB (IMMEDIATE RELEASE) PO PRN (11:27)
[2017-01-23] MEDS: ACETAMINOPHEN 500 MG TAB PO PRN (13:09)
--- NOTE | 2017-01-23 13:42 | Progress Note ---
Medicine Progress Note Date & Time of Visit: Jan 23, 2017 at 13:39. Subjective Pt was seen and examined Sitting in chair with no distress with family present he said that he is having some headache denies any chest pain, palpitation and SOB Objective Last 8 Hrs Date Time Temp Pulse Resp B/P Pulse Ox O2 Delivery O2 Flow Rate FiO2 01/23/17 12:00 36.8 80 18 118/66 96 01/23/17 11:00 36.9 79 18 124/71 96 01/23/17 10:36 Room Air 01/23/17 10:00 36.9 81 18 117/65 95 01/23/17 09:30 36.8 83 17 116/65 95 01/23/17 09:15 36.9 88 18 115/65 95 01/23/17 08:55 37.0 84 18 117/65 01/23/17 07:36 36.8 85 16 104/61 94 Room Air Physical Exam: General- No acute distress Head- atraumatic Eyes- PERRL, EOMI ENT- oropharynx clear Neck- supple, no JVD Lungs- clear to auscultation and percussion Heart- regular rhythm; no murmur Abdomen- normal bowel sounds Extremities-no calf tenderness Neuro- alert, oriented x 3; PERRL, EOMI; no facial palsy Skin- warm & dry Laboratory Results: Last 24 Hours Test 01/22/17 17:12 01/23/17 00:00 01/23/17 05:25 Hemoglobin 8.7 g/dL 8.0 g/dL Hematocrit 26.7 % 23.7 % White Blood Count 8.74 K/uL Red Blood Count 2.60 M/uL Mean Corpuscular Volume 91.2 fL Mean Corpuscular Hemoglobin 30.8 pg Mean Corpuscular Hemoglobin Concent 33.8 g/dl RDW Standard Deviation 50.1 fL RDW Coefficient of Variation 15.1 % Platelet Count 148 K/uL Mean Platelet Volume 8.9 fL Assessment & Plan S/P T11-S1 LUMBAR DECOMPRESSION/ FUSION POD #[address] Pierce Pain control and bowel regimen incentive spirometry PT/ OT as per ortho ACUTE BLOOD LOSS ANEMIA Due to surgery; EBL 2 liters Transfused 1 unit in OR Hg 11.1 -> 9.8 -> 10.0 Hgb 8.0 today being transfused 2 unit prbc continue monitor h/h CAD S/P STENT 2005 Asymptomatic Aspirin resumed by ortho Continue beta chuck and statin stable LOLI Continue CPAP HTN BP is stable Continue metoprolol and amlodipine Will resume lasix in am DYSLIPIDEMIA Continue statin BPH Continue terazosin DEPRESSION Continue Celexa DVT PROPHYLAXIS Per ortho DISPOSITION Per ortho Current Inpatient Medications: Current Inpatient Medications Medications (Trade) Dose Ordered Sig/Rachel Route Start Time Stop Time Status Last Admin Dose Admin Promethazine HCl/ Sodium Chloride (Phenergan Inj/ Nss 50ml) 50.5 ml @ 202 mls/hr Q6H PRN IV 01/21/17 12:30 02/20/17 12:29 Ondansetron HCl (Zofran Inj) 4 mg Q6H PRN IV 01/21/17 12:30 02/20/17 12:29 01/23/17 13:09 4 MG Metoclopramide HCl (Reglan Inj) 10 mg Q6H PRN IV 01/21/17 12:30 02/20/17 12:29 Lorazepam 0.5 mg 0.5 mg Q8H PRN PO 01/21/17 12:30 02/20/17 12:29 Lorazepam/Syringe (Ativan Inj/ Syringe) 0.25 ml @ 1 mls/min Q8H PRN IV 01/21/17 12:30 02/20/17 12:29 Pneumococcal Polysaccharide Vaccine 1 ea PRN PRN N/A 01/21/17 12:30 02/20/17 12:29 Influenza Virus Vacc Triv Types A&B 1 ea PRN PRN N/A 01/21/17 12:30 02/20/17 12:29 Polyethylene (Miralax Powder Packet) 17 gm Q6 PO 01/23/17 06:00 02/22/17 05:59 01/23/17 11:28 17 GM Bisacodyl (Dulcolax Supp) 10 mg DAILY PRN [place] 01/21/17 12:30 02/20/17 12:29 Magnesium Hydroxide (Milk Of Magnesia Susp) 30 ml DAILY PRN PO 01/21/17 12:30 02/20/17 12:29 Hydromorphone HCl (Dilaudid Inj) 0.5-1mg prn moder... Q3H PRN IV 01/22/17 06:00 02/05/17 05:59 Oxycodone HCl (Roxicodone Immediate Rel Tab) 5-10mg prn moderate to sev... Q4H PRN PO 01/22/17 06:00 02/05/17 05:59 01/23/17 11:27 10 MG Acetaminophen 1000 mg 1,000 mg Q8H PRN PO 01/21/17 12:30 02/20/17 12:29 01/23/17 13:09 1,000 MG Acetaminophen (Ofirmev Iv) 100 ml @ 400 mls/hr Q8H PRN IV 01/21/17 12:30 02/20/17 12:29 Naloxone HCl (Narcan Inj) 0.1 mg Q5M PRN IV 01/21/17 12:30 02/20/17 12:29 Senna/Docusate Sodium (Senokot S Tab) 2 tab HS PO 01/21/17 21:00 02/20/17 20:59 01/22/17 21:47 2 TAB Sodium Biphosphate/ Sodium Phosphate (Fleet Enema) 132 ml ONE PRN [place] 01/21/17 12:30 02/20/17 12:29 Hydroxyzine HCl (Vistaril Tab) 25 mg Q8H PRN PO 01/21/17 12:30 02/20/17 12:29 Al Hydroxide/Mg Hydroxide (Maalox Susp) 30 ml Q6H PRN PO 01/21/17 12:30 02/20/17 12:29 Famotidine (Pepcid Tab) 20 mg Q12 PRN PO 01/21/17 12:30 02/20/17 12:29 Diphenhydramine HCl (Benadryl Cap) 25 mg Q6H PRN PO 01/21/17 12:30 02/20/17 12:29 Amlodipine Besylate (Norvasc Tab) 5 mg QAM PO 01/22/17 09:00 02/21/17 08:59 01/23/17 08:51 5 MG Aspirin (Ecotrin Tab) 81 mg QPM PO 01/21/17 21:00 02/20/17 20:59 01/22/17 21:46 81 MG Atorvastatin Calcium (Lipitor Tab) 40 mg HS PO 01/21/17 21:00 02/20/17 20:59 01/22/17 21:47 40 MG Magnesium Oxide (Mag-Ox Tab) 400 mg BID PO 01/21/17 21:00 02/20/17 20:59 01/23/17 10:16 400 MG Metoprolol Succinate (Toprol Xl Tab) 25 mg QAM PO 01/22/17 09:00 02/21/17 08:59 01/23/17 08:51 25 MG Nitroglycerin (Nitrostat Tab) 0.4 mg UD PRN UT 01/21/17 12:30 02/20/17 12:29 Terazosin HCl (Hytrin Cap) 10 mg HS PO 01/21/17 21:00 02/20/17 20:59 01/22/17 21:46 10 MG Gabapentin (Neurontin Cap) 100 mg BID@0900,1400 PO 01/22/17 09:00 02/21/17 08:59 01/23/17 10:16 100 MG Gabapentin (Neurontin Cap) 200 mg HS PO 01/21/17 21:00 02/20/17 20:59 01/22/17 20:50 200 MG Citalopram Hydrobromide (celeXA TAB) 10 mg QAM PO 01/22/17 09:00 02/21/17 08:59 01/23/17 08:50 10 MG Furosemide (Lasix Tab) 40 mg QAM PO 01/23/17 09:00 02/22/17 08:59 01/23/17 08:50 40 MG
[2017-01-23] MEDS: DOCUSATE SODIUM/SENNA 50/8.6MG TAB PO SCH (20:30)
[2017-01-23] MEDS: ATORVASTATIN 40 MG TAB PO SCH (20:30)
[2017-01-23] MEDS: ASPIRIN 81 MG ECTAB PO SCH (20:30)
[2017-01-24] MEDS: OXYCODONE HCL IR 5 MG TAB (IMMEDIATE RELEASE) PO PRN ×4 (00:11→23:49)
[2017-01-24 05:52] LABS: HEMATOCRIT 29.6 % (42-52); MEAN CELL VOLUME 88.9 fL (80-100); MEAN CORPUSCULAR HEMOGLOBIN 29.7 pg (25-34); MEAN CORPUSCULAR HGB CONC 33.4 g/dl (32-36); MEAN PLATELET VOLUME 8.9 fL (7.4-10.4); PLATELET COUNT 172 K/uL (130-400); RED BLOOD COUNT 3.33 M/uL (4.7-6.1); WHITE BLOOD COUNT 8.57 K/uL (4.8-10.8)
[2017-01-24 06:31] LABS: BUN/CREATININE RATIO 20.3 (10-20); CALCIUM 7.8 mg/dl (8.5-10.1); CREATININE 0.7 mg/dl (0.60-1.40); POTASSIUM 4.1 mmol/L (3.5-5.1)
[2017-01-24 07:00] VITALS: BP 128/74; PULSE 83; TEMP 36.9; O2SAT 95
[2017-01-24] MEDS: ACETAMINOPHEN 500 MG TAB PO PRN (07:21)
[2017-01-24] MEDS: MAGNESIUM OXIDE 400 MG TAB PO SCH ×2 (08:17→20:32)
[2017-01-24] MEDS: CITALOPRAM 20 MG TAB PO SCH (08:17)
[2017-01-24] MEDS: FUROSEMIDE 40 MG TAB PO SCH (08:17)
[2017-01-24] MEDS: GABAPENTIN 100 MG CAP PO SCH ×3 (08:18→20:33)
[2017-01-24] MEDS: AMLODIPINE BESYLATE 5 MG TAB PO SCH (08:19)
[2017-01-24] MEDS: METOPROLOL SUCC 25MG EXT REL TAB PO SCH (08:19)
--- NOTE | 2017-01-24 11:38 | Orthopedic Progress Note ---
Orthopedic Progress Note Date of Service Jan 24, 2017. Subjective Post OP Day: 3 Reports: feeling well, pain controlled w PO medications, Denies: SOB, calf pain , chest pain, complaints, light headedness, nausea / vomiting, using [employer] Additional Notes: mild MARTIN in chair but no photophobia Objective calves soft nontender, N/V intact, dressing C/D/I, A&O x3, hemovac drainage Date Time Temp Pulse Resp B/P Pulse Ox O2 Delivery O2 Flow Rate FiO2 01/24/17 10:10 Room Air 01/24/17 07:00 36.9 83 16 128/74 95 Room Air 01/23/17 23:48 36.8 92 16 114/65 94 Room Air 01/23/17 23:22 Room Air 01/23/17 19:36 37.2 86 18 120/66 93 Room Air 01/23/17 17:32 36.8 87 16 127/73 95 01/23/17 16:55 36.7 85 18 126/68 94 01/23/17 16:00 Room Air 01/23/17 15:55 36.4 87 18 126/74 98 01/23/17 15:55 36.4 87 18 126/74 98 01/23/17 15:00 36.5 80 18 119/73 97 Room Air 01/23/17 14:55 36.5 84 18 119/73 97 01/23/17 14:25 36.7 79 18 122/72 96 01/23/17 14:10 36.7 75 18 115/69 95 01/23/17 13:54 36.8 73 18 116/66 01/23/17 12:00 36.8 80 18 118/66 96 Laboratory Results 24 Hours: Test 01/23/17 18:30 01/24/17 05:00 Hematocrit 28.0 % 29.6 % Hemoglobin 9.5 g/dL 9.9 g/dL Assessment & Plan Assessment: HCT improved, mild MARTIN not clear spinal MARTIN, pain controlled. Plan: start PT, continue HVC, SCD's
[2017-01-24 15:08] VITALS: BP 134/71; PULSE 76; TEMP 36.9; O2SAT 95
--- NOTE | 2017-01-24 17:08 | Progress Note ---
Medicine Progress Note Date & Time of Visit: Jan 24, 2017 at 17:03. Subjective Pt was seen and examined sitting in chair with family presents Pt said that he feels much better today he said that he walks with PT and did good denies any chest pain, palpitation, dizziness and sob Objective Last 8 Hrs Date Time Temp Pulse Resp B/P Pulse Ox O2 Delivery O2 Flow Rate FiO2 01/24/17 15:08 36.9 76 18 134/71 95 Room Air 01/24/17 14:53 Room Air 01/24/17 10:10 Room Air Physical Exam: General- No acute distress Head- atraumatic Eyes- PERRL, EOMI ENT- oropharynx clear Neck- supple, no JVD Lungs- clear to auscultation and percussion Heart- regular rhythm; no murmur Abdomen- normal bowel sounds Extremities-no calf tenderness Neuro- alert, oriented x 3; PERRL, EOMI; no facial palsy Skin- warm & dry Laboratory Results: Last 24 Hours Test 01/23/17 18:30 01/24/17 05:00 Hemoglobin 9.5 g/dL 9.9 g/dL Hematocrit 28.0 % 29.6 % White Blood Count 8.57 K/uL Red Blood Count 3.33 M/uL Mean Corpuscular Volume 88.9 fL Mean Corpuscular Hemoglobin 29.7 pg Mean Corpuscular Hemoglobin Concent 33.4 g/dl RDW Standard Deviation 49.9 fL RDW Coefficient of Variation 15.5 % Platelet Count 172 K/uL Mean Platelet Volume 8.9 fL Sodium Level 141 mmol/L Potassium Level 4.1 mmol/L Chloride Level 106 mmol/L Carbon Dioxide Level 31 mmol/L Anion Gap 4.0 mmol/L Blood Urea Nitrogen 14 mg/dl Creatinine 0.70 mg/dl Est Creatinine Clear Calc Drug Dose 139.8 ml/min Estimated GFR () 112.4 Estimated GFR (Non- 97.0 BUN/Creatinine Ratio 20.3 Random Glucose 117 mg/dl Calcium Level 7.8 mg/dl Assessment & Plan S/P T11-S1 LUMBAR DECOMPRESSION/ FUSION POD #[address] Pierce Pain control and bowel regimen incentive spirometry PT/ OT as per ortho ACUTE BLOOD LOSS ANEMIA Due to surgery; EBL 2 liters Transfused 1 unit in OR Hg 11.1 -> 9.8 -> 10.0 Hgb 9.9 today transfused 2 unit prbc yesterday continue monitor h/h CAD S/P STENT 2005 Asymptomatic Aspirin resumed by ortho Continue beta chuck and statin stable LOLI Continue CPAP HTN BP is stable Continue metoprolol, amlodipine and lasix DYSLIPIDEMIA Continue statin BPH Continue terazosin DEPRESSION Continue Celexa DVT PROPHYLAXIS Per ortho DISPOSITION Per ortho Pt is interested to go to [place] in [place] for rehab Current Inpatient Medications: Current Inpatient Medications Medications (Trade) Dose Ordered Sig/Rachel Route Start Time Stop Time Status Last Admin Dose Admin Promethazine HCl/ Sodium Chloride (Phenergan Inj/ Nss 50ml) 50.5 ml @ 202 mls/hr Q6H PRN IV 01/21/17 12:30 02/20/17 12:29 Ondansetron HCl (Zofran Inj) 4 mg Q6H PRN IV 01/21/17 12:30 02/20/17 12:29 01/23/17 13:09 4 MG Metoclopramide HCl (Reglan Inj) 10 mg Q6H PRN IV 01/21/17 12:30 02/20/17 12:29 Lorazepam 0.5 mg 0.5 mg Q8H PRN PO 01/21/17 12:30 02/20/17 12:29 Lorazepam/Syringe (Ativan Inj/ Syringe) 0.25 ml @ 1 mls/min Q8H PRN IV 01/21/17 12:30 02/20/17 12:29 Pneumococcal Polysaccharide Vaccine 1 ea PRN PRN N/A 01/21/17 12:30 02/20/17 12:29 Influenza Virus Vacc Triv Types A&B 1 ea PRN PRN N/A 01/21/17 12:30 02/20/17 12:29 Bisacodyl (Dulcolax Supp) 10 mg DAILY PRN [place] 01/21/17 12:30 02/20/17 12:29 Magnesium Hydroxide (Milk Of Magnesia Susp) 30 ml DAILY PRN PO 01/21/17 12:30 02/20/17 12:29 Hydromorphone HCl (Dilaudid Inj) 0.5-1mg prn moder... Q3H PRN IV 01/22/17 06:00 02/05/17 05:59 Oxycodone HCl (Roxicodone Immediate Rel Tab) 5-10mg prn moderate to sev... Q4H PRN PO 01/22/17 06:00 02/05/17 05:59 01/24/17 12:54 10 MG Acetaminophen 1000 mg 1,000 mg Q8H PRN PO 01/21/17 12:30 02/20/17 12:29 01/24/17 07:21 1,000 MG Acetaminophen (Ofirmev Iv) 100 ml @ 400 mls/hr Q8H PRN IV 01/21/17 12:30 02/20/17 12:29 Naloxone HCl (Narcan Inj) 0.1 mg Q5M PRN IV 01/21/17 12:30 02/20/17 12:29 Senna/Docusate Sodium (Senokot S Tab) 2 tab HS PO 01/21/17 21:00 02/20/17 20:59 01/23/17 20:30 2 TAB Sodium Biphosphate/ Sodium Phosphate (Fleet Enema) 132 ml ONE PRN [place] 01/21/17 12:30 02/20/17 12:29 Hydroxyzine HCl (Vistaril Tab) 25 mg Q8H PRN PO 01/21/17 12:30 02/20/17 12:29 Al Hydroxide/Mg Hydroxide (Maalox Susp) 30 ml Q6H PRN PO 01/21/17 12:30 02/20/17 12:29 Famotidine (Pepcid Tab) 20 mg Q12 PRN PO 01/21/17 12:30 02/20/17 12:29 Diphenhydramine HCl (Benadryl Cap) 25 mg Q6H PRN PO 01/21/17 12:30 02/20/17 12:29 Amlodipine Besylate (Norvasc Tab) 5 mg QAM PO 01/22/17 09:00 02/21/17 08:59 01/24/17 08:19 5 MG Aspirin (Ecotrin Tab) 81 mg QPM PO 01/21/17 21:00 02/20/17 20:59 01/23/17 20:30 81 MG Atorvastatin Calcium (Lipitor Tab) 40 mg HS PO 01/21/17 21:00 02/20/17 20:59 01/23/17 20:30 40 MG Magnesium Oxide (Mag-Ox Tab) 400 mg BID PO 01/21/17 21:00 02/20/17 20:59 01/24/17 08:17 400 MG Metoprolol Succinate (Toprol Xl Tab) 25 mg QAM PO 01/22/17 09:00 02/21/17 08:59 01/24/17 08:19 25 MG Nitroglycerin (Nitrostat Tab) 0.4 mg UD PRN [place] 01/21/17 12:30 02/20/17 12:29 Terazosin HCl (Hytrin Cap) 10 mg HS PO 01/21/17 21:00 02/20/17 20:59 01/23/17 20:31 10 MG Gabapentin (Neurontin Cap) 100 mg BID@0900,1400 PO 01/22/17 09:00 02/21/17 08:59 01/24/17 14:14 100 MG Gabapentin (Neurontin Cap) 200 mg HS PO 01/21/17 21:00 02/20/17 20:59 01/23/17 20:31 200 MG Citalopram Hydrobromide (celeXA TAB) 10 mg QAM PO 01/22/17 09:00 02/21/17 08:59 01/24/17 08:17 10 MG Furosemide (Lasix Tab) 40 mg QAM PO 01/23/17 09:00 02/22/17 08:59 01/24/17 08:17 40 MG
[2017-01-24] MEDS: ASPIRIN 81 MG ECTAB PO SCH (20:32)
[2017-01-24] MEDS: ATORVASTATIN 40 MG TAB PO SCH (20:32)
[2017-01-24] MEDS: DOCUSATE SODIUM/SENNA 50/8.6MG TAB PO SCH (20:32)
[2017-01-24 23:25] VITALS: BP 119/68; PULSE 88; TEMP 37.2; O2SAT 92
[2017-01-25 05:56] LABS: HEMATOCRIT 28.8 % (42-52); MEAN CELL VOLUME 90.3 fL (80-100); MEAN CORPUSCULAR HEMOGLOBIN 30.1 pg (25-34); MEAN CORPUSCULAR HGB CONC 33.3 g/dl (32-36); MEAN PLATELET VOLUME 8.7 fL (7.4-10.4); PLATELET COUNT 176 K/uL (130-400); RED BLOOD COUNT 3.19 M/uL (4.7-6.1); WHITE BLOOD COUNT 6.97 K/uL (4.8-10.8)
[2017-01-25 06:35] VITALS: BP 125/70; PULSE 87; TEMP 36.9; O2SAT 93
[2017-01-25] MEDS: ACETAMINOPHEN 500 MG TAB PO PRN (07:19)
[2017-01-25] MEDS: OXYCODONE HCL IR 5 MG TAB (IMMEDIATE RELEASE) PO PRN ×4 (07:20→23:23)
[2017-01-25] MEDS: CITALOPRAM 20 MG TAB PO SCH (07:53)
[2017-01-25] MEDS: AMLODIPINE BESYLATE 5 MG TAB PO SCH (07:54)
[2017-01-25] MEDS: GABAPENTIN 100 MG CAP PO SCH ×3 (07:54→20:59)
[2017-01-25] MEDS: FUROSEMIDE 40 MG TAB PO SCH (07:54)
[2017-01-25] MEDS: MAGNESIUM OXIDE 400 MG TAB PO SCH ×2 (07:54→20:59)
[2017-01-25] MEDS: METOPROLOL SUCC 25MG EXT REL TAB PO SCH (07:55)
--- NOTE | 2017-01-25 11:08 | Progress Note ---
Medicine Progress Note Date & Time of Visit: January 25, 2017 at 11:02. Subjective Pt was seen and examined Sitting at the edge of the bed with no distress Pt said that he feels fine He did well today during physical therapy Pain is control Denies any chest pain, palpitation, dizziness and SOB Objective Last 8 Hrs Date Time Temp Pulse Resp B/P Pulse Ox O2 Delivery O2 Flow Rate FiO2 01/25/17 08:17 Room Air 01/25/17 06:35 36.9 87 18 125/70 93 Room Air Physical Exam: General- No acute distress Head- atraumatic Eyes- PERRL, EOMI ENT- oropharynx clear Neck- supple, no JVD Lungs- clear to auscultation and percussion Heart- regular rhythm; no murmur Abdomen- normal bowel sounds Extremities-no calf tenderness Neuro- alert, oriented x 3; PERRL, EOMI; no facial palsy Skin- warm & dry Laboratory Results: Last 24 Hours Test 01/25/17 05:01 White Blood Count 6.97 K/uL Red Blood Count 3.19 M/uL Hemoglobin 9.6 g/dL Hematocrit 28.8 % Mean Corpuscular Volume 90.3 fL Mean Corpuscular Hemoglobin 30.1 pg Mean Corpuscular Hemoglobin Concent 33.3 g/dl RDW Standard Deviation 48.6 fL RDW Coefficient of Variation 14.7 % Platelet Count 176 K/uL Mean Platelet Volume 8.7 fL Assessment & Plan S/P T11-S1 LUMBAR DECOMPRESSION/ FUSION POD #[address] Pierce Pain control and bowel regimen Drained removed by ortho incentive spirometry PT/ OT as per ortho ACUTE BLOOD LOSS ANEMIA Due to surgery; EBL 2 liters Transfused 1 unit in OR Hg 11.1 -> 9.8 -> 10.0 Hgb 9.6 today Stable transfused 2 unit prbc on 01/23/17 continue monitor h/h CAD S/P STENT 2006 Asymptomatic Aspirin resumed by ortho Continue beta chuck and statin stable LOLI Continue CPAP HTN BP is stable Continue metoprolol, amlodipine and lasix DYSLIPIDEMIA Continue statin BPH Continue terazosin DEPRESSION Continue Celexa DVT PROPHYLAXIS Per ortho DISPOSITION Per ortho Waiting for insurance approval for [facility] for rehab PT/OT Current Inpatient Medications: Current Inpatient Medications Medications (Trade) Dose Ordered Sig/Rachel Route Start Time Stop Time Status Last Admin Dose Admin Promethazine HCl/ Sodium Chloride (Phenergan Inj/ Nss 50ml) 50.5 ml @ 202 mls/hr Q6H PRN IV 01/21/17 12:30 02/20/17 12:29 Ondansetron HCl (Zofran Inj) 4 mg Q6H PRN IV 01/21/17 12:30 02/20/17 12:29 01/23/17 13:09 4 MG Metoclopramide HCl (Reglan Inj) 10 mg Q6H PRN IV 01/21/17 12:30 02/20/17 12:29 Lorazepam 0.5 mg 0.5 mg Q8H PRN PO 01/21/17 12:30 02/20/17 12:29 Lorazepam/Syringe (Ativan Inj/ Syringe) 0.25 ml @ 1 mls/min Q8H PRN IV 01/21/17 12:30 02/20/17 12:29 Pneumococcal Polysaccharide Vaccine 1 ea PRN PRN N/A 01/21/17 12:30 02/20/17 12:29 Influenza Virus Vacc Triv Types A&B 1 ea PRN PRN N/A 01/21/17 12:30 02/20/17 12:29 Bisacodyl (Dulcolax Supp) 10 mg DAILY PRN [place] 01/21/17 12:30 02/20/17 12:29 Magnesium Hydroxide (Milk Of Magnesia Susp) 30 ml DAILY PRN PO 01/21/17 12:30 02/20/17 12:29 Hydromorphone HCl (Dilaudid Inj) 0.5-1mg prn moder... Q3H PRN IV 01/22/17 06:00 02/05/17 05:59 Oxycodone HCl (Roxicodone Immediate Rel Tab) 5-10mg prn moderate to sev... Q4H PRN PO 01/22/17 06:00 02/05/17 05:59 01/25/17 07:20 10 MG Acetaminophen 1000 mg 1,000 mg Q8H PRN PO 01/21/17 12:30 02/20/17 12:29 01/25/17 07:19 1,000 MG Acetaminophen (Ofirmev Iv) 100 ml @ 400 mls/hr Q8H PRN IV 01/21/17 12:30 02/20/17 12:29 Naloxone HCl (Narcan Inj) 0.1 mg Q5M PRN IV 01/21/17 12:30 02/20/17 12:29 Senna/Docusate Sodium (Senokot S Tab) 2 tab HS PO 01/21/17 21:00 02/20/17 20:59 01/24/17 20:32 2 TAB Sodium Biphosphate/ Sodium Phosphate (Fleet Enema) 132 ml ONE PRN RI 01/21/17 12:30 02/20/17 12:29 Hydroxyzine HCl (Vistaril Tab) 25 mg Q8H PRN PO 01/21/17 12:30 02/20/17 12:29 Al Hydroxide/Mg Hydroxide (Maalox Susp) 30 ml Q6H PRN PO 01/21/17 12:30 02/20/17 12:29 Famotidine (Pepcid Tab) 20 mg Q12 PRN PO 01/21/17 12:30 02/20/17 12:29 Diphenhydramine HCl (Benadryl Cap) 25 mg Q6H PRN PO 01/21/17 12:30 02/20/17 12:29 Amlodipine Besylate (Norvasc Tab) 5 mg QAM PO 01/22/17 09:00 02/21/17 08:59 01/25/17 07:54 5 MG Aspirin (Ecotrin Tab) 81 mg QPM PO 01/21/17 21:00 02/20/17 20:59 01/24/17 20:32 81 MG Atorvastatin Calcium (Lipitor Tab) 40 mg HS PO 01/21/17 21:00 02/20/17 20:59 01/24/17 20:32 40 MG Magnesium Oxide (Mag-Ox Tab) 400 mg BID PO 01/21/17 21:00 02/20/17 20:59 01/25/17 07:54 400 MG Metoprolol Succinate (Toprol Xl Tab) 25 mg QAM PO 01/22/17 09:00 02/21/17 08:59 01/25/17 07:55 25 MG Nitroglycerin (Nitrostat Tab) 0.4 mg UD PRN UT 01/21/17 12:30 02/20/17 12:29 Terazosin HCl (Hytrin Cap) 10 mg HS PO 01/21/17 21:00 02/20/17 20:59 01/24/17 20:32 10 MG Gabapentin (Neurontin Cap) 100 mg BID@0900,1400 PO 01/22/17 09:00 02/21/17 08:59 01/25/17 07:54 100 MG Gabapentin (Neurontin Cap) 200 mg HS PO 01/21/17 21:00 02/20/17 20:59 01/24/17 20:33 200 MG Citalopram Hydrobromide (celeXA TAB) 10 mg QAM PO 01/22/17 09:00 02/21/17 08:59 01/25/17 07:53 10 MG Furosemide (Lasix Tab) 40 mg QAM PO 01/23/17 09:00 02/22/17 08:59 01/25/17 07:54 40 MG
[2017-01-25] MEDS ORDERED: RXC5 PO (11:13)
--- NOTE | 2017-01-25 11:14 | Discharge Instructions ---
Discharge Instructions Date of Service January 25, 2017. Admission Reason for Admission: Lumbar Spinal Stenosis Discharge Discharge Diagnosis / Problem: stenosis Discharge Goals Goal(s): Improve function Activity Recommendations Activity Limitations: per Instructions/Follow-up section . Instructions / Follow-Up Instructions / Follow-Up ACTIVITY RECOMMENDATIONS: SELF CARE INSTRUCTIONS AFTER THORACIC/LUMBAR FUSIONS 1. You may walk to your tolerance. It is good exercise for your legs and back. Expect some back and intermittent leg aches and pains. 2. You may perform "counter-top" level activities (make a sandwich, nellie with a project, etc.). 3. No bending or lifting of more than 10 pounds or back twisting of any nature (roll like a log when turning in bed). 4. You may ride in a car for 20-30 minutes at a time. No driving until after your first visit with your doctor. 5. Frequent changes of position and restricting sitting to 30 minutes at a time will help limit the amount of back spasms and stiffness you may experience. 6. You may discontinue the use of ambulatory aids (cane, crutches, etc.) once your strength and confidence allow. 7. You may structural engineering drafting officer the shower and let water strike your incision when you arrive home at least once daily. Do not take a tub bath, sit in a hot tub or go into a swimming pool until after your first recheck in the office. SPECIAL CARE INSTRUCTIONS: VERY IMPORTANT TO READ AND REVIEW A. Your surgical incision has been closed with a cosmetic suture under the skin that will dissolve in about 6 weeks. In 14 days, you can use a pair of clean scissors and cut the suture that is left outside of the skin at the ends of your incision. 1. The small skin tapes can be removed 7 days after surgery if they have not fallen off by that point. 2. You may keep the wound open to air as much as possible to promote healing after post-op day number 5 unless told otherwise by your doctor. 3. If you think the wound looks like it is becoming infected (redness or worsening drainage) and/or you are experiencing fever, chill or worsening back pain and muscle spasms, contact the office so that we may evaluate you as soon as possible. B. Complications are uncommon, but please contact us if you have any signs or symptoms of: 1. wound infection (fever higher than 102.5 degrees F, redness, separation of wound, drainage, or increasing pain from the incision) 2. blood clots in legs (pain, swelling, redness and warmth in legs) 3. urinary tract infection (fever higher than 102.5 degrees F, burning upon urination or increased frequency of urination) 4. nerve problems (inability to walk on your toes or heels, numbness, loss of bowel or bladder control) 5. any other symptoms that concern you C. Please call the office at if you have any concerns or questions about your operation or recovery. D. No smoking! Smoking drastically decreases the chance of a solid fusion. E. Do not take any anti-inflammatory medications (Indocin, Advil, Motrin, Aspirin, Naprosyn, etc.) as these may inhibit the chance of a solid fusion. Tylenol is okay to take for pain. MANAGING PAIN AFTER SPINAL SURGERY 1. Narcotic medication is intended for short-term use and will be provided for surgical pain. Surgical pain usually lasts for a period of 4-6 weeks. Narcotic medication includes Percocet, Vicodin, Darvocet, Tylenol #3 or Lortab. 2. Longer-term pain is more appropriately treated with non-narcotic medication such as Tylenol ES. 3. Muscle spasm is not appropriately treated with narcotics. Muscle relaxers such as Soma, Flexeril or Skelaxin can be used along with Tylenol ES. 4. Remember that we all live with some "aches and pains". This is not unusual or uncommon after an injury or as we get older. a. Back pain is expected and may include muscle spasms for 4 to 6 weeks after surgery. The pain should gradually improve. If the pain worsens for no apparent reason, please contact the office. b. Intermittent leg pain may also be experienced and should not be concerned about unless it worsens for no apparent reason. If so, please contact the office. 5. We will provide appropriate medication within the normal guidelines of their prescribed use. We will also be very cautious and aware of potential abuse and extended duration of patients' medication needs. a. Pain medications are for your comfort and to assist with sleep and rest so that the tissue can heal. They are not provided in order to return to normal activity and should not be used through the day. To do so or worsening pain at night can result from ongoing tissue damage and development of tolerance to the prescribed medicine. 6. Please allow 2-3 days to process refills. Prescriptions will not be mailed but must be picked up at the office. FOLLOW UP VISIT: Keep your scheduled follow-up appointment. Any questions, please call the office at . Current Hospital Diet Patient's current hospital diet: Regular Diet Discharge Diet Recommended Diet: Regular Diet Procedures Procedures Performed: T11-S1 Lumbar Laminectomy, Decompression, Pedicle Screw Fixation, Placement of Interbody Device L4-L5 L5-S1, Posterior Spinal Fusion T11-S1 Posterolateral Fusion, Application of Radha, Bone Morphogenetic Protein, Iliac Charlotte Fixation , Prophylactic use of Duraseal Pending Studies Studies pending at discharge: no Medical Emergencies . Who to Call and When: Medical Emergencies: If at any time you feel your situation is an emergency, please call 911 immediately. . Non-Emergent Contact Non-Emergency issues call your: Primary Care Provider . "Provider Documentation" section prepared by Tavo Pierce. . VTE Core Measure Inpt VTE Proph given/why not?: Miguel Bennett, SCD's
--- NOTE | 2017-01-25 11:35 | PROGRESS NOTE ---
DATE: 01/25/2017 SUBJECTIVE: Back pain is controlled. No headaches today. Vital signs stable. T-max 36.9. SUSANNA drained 60 mL last shift. Bowel movement yesterday. Hematocrit this a.m. is 28.8. OBJECTIVE: The patient is sitting at bedside. Has good strength to testing with no ____ on the left. We did change his dressing today. Incision is clean, dry and intact. There is no erythema, drainage or appreciable swelling. ASSESSMENT: Status post thoracolumbar fusion. PLAN: At this time, will continue ____ activity from bed to the chair today. Therapy will progress later this week. We will consider home with home health in the next few days.
[2017-01-25 15:08] VITALS: BP 107/51; PULSE 78; TEMP 36.9; O2SAT 95
[2017-01-25] MEDS ORDERED: HYDROmorphone INJ 1 MG/ML SYR IV PRN (17:30)
[2017-01-25] MEDS: ATORVASTATIN 40 MG TAB PO SCH (21:00)
[2017-01-25] MEDS: DOCUSATE SODIUM/SENNA 50/8.6MG TAB PO SCH (21:00)
[2017-01-25] MEDS: ASPIRIN 81 MG ECTAB PO SCH (21:00)
[2017-01-25 22:24] VITALS: BP 126/63; PULSE 84; TEMP 37.4; O2SAT 93
[2017-01-26 03:09] VITALS: BP 121/68; PULSE 91; TEMP 37; O2SAT 94
[2017-01-26 06:13] LABS: HEMATOCRIT 27.6 % (42-52); MEAN CELL VOLUME 90.5 fL (80-100); MEAN CORPUSCULAR HEMOGLOBIN 29.8 pg (25-34); MEAN PLATELET VOLUME 8.6 fL (7.4-10.4); PLATELET COUNT 230 K/uL (130-400); RED BLOOD COUNT 3.05 M/uL (4.7-6.1); WHITE BLOOD COUNT 8.32 K/uL (4.8-10.8)
[2017-01-26 06:23] VITALS: BP 126/63; PULSE 88; TEMP 36.8; O2SAT 94
[2017-01-26] MEDS: OXYCODONE HCL IR 5 MG TAB (IMMEDIATE RELEASE) PO PRN ×2 (06:34→10:44)
[2017-01-26] MEDS: MAGNESIUM OXIDE 400 MG TAB PO SCH (08:30)
[2017-01-26] MEDS: CITALOPRAM 20 MG TAB PO SCH (08:30)
[2017-01-26] MEDS: METOPROLOL SUCC 25MG EXT REL TAB PO SCH (08:31)
[2017-01-26] MEDS: AMLODIPINE BESYLATE 5 MG TAB PO SCH (08:31)
[2017-01-26] MEDS: GABAPENTIN 100 MG CAP PO SCH ×2 (08:31→13:13)
[2017-01-26] MEDS: FUROSEMIDE 40 MG TAB PO SCH (08:32)
--- NOTE | 2017-01-26 08:37 | DISCHARGE SUMMARY ---
PRINCIPAL DIAGNOSIS: Spinal stenosis. HOSPITAL COURSE FOLLOWS: On January 21, the patient underwent multilevel lumbar decompression and fusion, tolerated this well and taken to the orthopedic floor postoperatively. After a slow start and rest throughout the weekend, he was up and ambulatory, progressed throughout the week appropriately, did require blood transfusion postop day #2, but he has been able to progress well, bowels working appropriately and subsequently discharged to rehab facility. Discharge orders and instructions found on the chart for further review.
[2017-01-26] MEDS ORDERED: NURSING VERBAL MED ORDER ONE ×2 (08:45)
[2017-01-26] MEDS ORDERED: POLYETHYLENE (MIRALAX) 17 GM PACK PO PRN (09:15)
[2017-01-26] MEDS ORDERED: ASPI81TA28 PO (09:22)
[2017-01-26] MEDS ORDERED: NTRGSL/4 UT (09:22)
[2017-01-26] MEDS ORDERED: GABA-112 PO (09:22)
[2017-01-26 10:04] VITALS: BP 126/63; PULSE 88; TEMP 36.8; O2SAT 94
[2017-01-26] MEDS ORDERED: TIZA4CAP PO (13:43)
[2017-01-26] MEDS ORDERED: ATOR-24 PO (13:43)
[2017-01-26] MEDS ORDERED: CITA10TA4 PO (13:43)
[2017-01-26] MEDS ORDERED: AMLO-110 PO (13:43)
[2017-01-26] MEDS ORDERED: METO25TA3 PO (13:43)
[2017-01-26] MEDS ORDERED: MAGN400T6 PO (13:43)
[2017-01-26] MEDS ORDERED: FRS/40 PO (13:43)
[2017-01-26] MEDS ORDERED: TERA1CAP63 PO (13:43)
[2017-01-26] MEDS ORDERED: METHPOW7 PO (13:44)
[2017-01-26] MEDS ORDERED: MULT-506 PO (13:45)
[2017-01-26] MEDS ORDERED: ALFA650T2 PO (13:45)
--- NOTE | 2017-01-26 15:08 | Progress Note ---
Internal Med Progress Note Date of Service: January 26, 2017. Provider Documentation: SUBJECTIVE: The patient was seen and examine Denies any symptoms Will go for Rehab today OBJECTIVE: Vital Signs-as noted below Exam: General-No distress Eyes-normal ENT-normal Neck-supple Lungs-clear to auscultate bilaterally Heart-Regular,no murmur appreciated Abdomen-Benign,no masses,bowel sound present Extremities-Np0 edema Neuro-AAOx3 Lab data as noted below. ASSESSMENT & PLAN: S/P T11-S1 LUMBAR DECOMPRESSION/ FUSION POD #[address] Pierce Management as per Ortho Clinically stable ACUTE BLOOD LOSS ANEMIA Due to surgery; EBL 2 liters Transfused 4 units of Blood following surgery Hb stable >9.0 CAD S/P STENT 2006 Asymptomatic Aspirin resumed by ortho Continue beta chuck and statin stable LOLI Continue CPAP HTN BP is stable Continue metoprolol, amlodipine and lasix DYSLIPIDEMIA Continue statin BPH Continue terazosin DEPRESSION Continue Celexa DVT PROPHYLAXIS Per ortho DISPOSITION Per ortho Will be discharged to [facility] for rehab today Medically stable to be discharged Vital Signs: Date Time Temp Pulse Resp B/P Pulse Ox O2 Delivery O2 Flow Rate FiO2 01/26/17 10:04 36.8 88 16 94 Room Air 01/26/17 07:15 Room Air 01/26/17 06:23 36.8 88 16 126/63 94 Room Air 01/26/17 03:09 37.0 91 16 121/68 94 Room Air 01/25/17 22:24 37.4 84 16 126/63 93 Room Air 01/25/17 19:15 Room Air 01/25/17 15:08 36.9 78 17 107/51 95 Room Air Lab Results: Results Past 24 Hours Test 01/26/17 05:07 Range/Units White Blood Count 8.32 4.8-10.8 K/uL Red Blood Count 3.05 4.7-6.1 M/uL Hemoglobin 9.1 14.0-18.0 g/dL Hematocrit 27.6 42-52 % Mean Corpuscular Volume 90.5 80-100 fL Mean Corpuscular Hemoglobin 29.8 25-34 pg Mean Corpuscular Hemoglobin Concent 33.0 32-36 g/dl RDW Standard Deviation 47.8 36.4-46.3 fL RDW Coefficient of Variation 14.4 11.5-14.5 % Platelet Count 230 130-400 K/uL Mean Platelet Volume 8.6 7.4-10.4 fL
[2017-01-26] MEDS ORDERED: NRN100 PO (15:16)
[2017-01-26] MEDS ORDERED: SENN-63 PO (15:16)
[2017-01-26] MEDS ORDERED: ACET-1256 PO (20:40)
[2017-01-26] MEDS ORDERED: ACET-1311 PO (20:40)
== END 2017-01-26 15:38 | DRG 457 ==
LOC: ENRESERVTM → ENRESERV → ENRESERVDT → C.ACU 05:56 → C.3E 07:30
PROVIDERS: ADMIT Orthopaedic Surgery Orthopaedic Surgery of the Spine; ATTEND Orthopaedic Surgery Orthopaedic Surgery of the Spine
PROC: 0SG1071 Fusion of 2 or more Lumbar Vertebral Joints with Autologous Tissue Substitute, Posterior Approach, Posterior Column, Open Approach (ICD-10-PCS; principal; 2017-01-21 07:45)
PROC: 0ST20ZZ Resection of Lumbar Vertebral Disc, Open Approach (ICD-10-PCS; principal; 2017-01-21 07:45)
PROC: 0RH Upper Joints, Insertion (ICD-10-PCS; principal; 2017-01-21 07:45)
PROC: 0RG7071 Fusion of 2 to 7 Thoracic Vertebral Joints with Autologous Tissue Substitute, Posterior Approach, Posterior Column, Open Approach (ICD-10-PCS; principal; 2017-01-21 07:45)
PROC: 00UT0JZ Supplement Spinal Meninges with Synthetic Substitute, Open Approach (ICD-10-PCS; principal; 2017-01-21 07:45)
PROC: 0SG804Z Fusion of Left Sacroiliac Joint with Internal Fixation Device, Open Approach (ICD-10-PCS; principal; 2017-01-21 07:45)
PROC: 0SG00AJ Fusion of Lumbar Vertebral Joint with Interbody Fusion Device, Posterior Approach, Anterior Column, Open Approach (ICD-10-PCS; principal; 2017-01-21 07:45)
PROC: 0SG3071 Fusion of Lumbosacral Joint with Autologous Tissue Substitute, Posterior Approach, Posterior Column, Open Approach (ICD-10-PCS; principal; 2017-01-21 07:45)
PROC: 0SG30AJ Fusion of Lumbosacral Joint with Interbody Fusion Device, Posterior Approach, Anterior Column, Open Approach (ICD-10-PCS; principal; 2017-01-21 07:45)
PROC: 0RH Upper Joints, Insertion (ICD-10-PCS; principal; 2017-01-21 07:45)
PROC: 0RGA071 Fusion of Thoracolumbar Vertebral Joint with Autologous Tissue Substitute, Posterior Approach, Posterior Column, Open Approach (ICD-10-PCS; principal; 2017-01-21 07:45)
PROC: 0SG704Z Fusion of Right Sacroiliac Joint with Internal Fixation Device, Open Approach (ICD-10-PCS; principal; 2017-01-21 07:45)
DX: M48.06 Spinal stenosis, lumbar region (principal); D62 Acute posthemorrhagic anemia; M48.07 Spinal stenosis, lumbosacral region; I25.10 Atherosclerotic heart disease of native coronary artery without angina pectoris; Z95.5 Presence of coronary angioplasty implant and graft; I10 Essential (primary) hypertension; G47.33 Obstructive sleep apnea (adult) (pediatric); Z98.1 Arthrodesis status; M21.379 Foot drop, unspecified foot; E78.5 Hyperlipidemia, unspecified; F32.9 Major depressive disorder, single episode, unspecified; Z88.2 Allergy status to sulfonamides

== ENCOUNTER 2017-01-26 19:30 | Observation (INO) | payer OTHER ==
[~2017-01-26] VITALS: Ht 193 cm; Wt 118.3 kg
[~2017-01-26 19:30] MED LIST changes: +ALFA650T2 PO; +AMLO-110 PO; +ASPI81TA28 PO; +ATOR-24 PO; +CITA10TA4 PO; -CLB100 PO; +FRS/40 PO; +GABA-112 PO; +MAGN400T6 PO; +METHPOW7 PO; +METO25TA3 PO; +MULT-506 PO; +NRN100 PO; +NTRGSL/4 UT; +RXC5 PO; +SENN-63 PO; +TERA1CAP63 PO; +TIZA4CAP PO
[2017-01-26] MEDS ORDERED: ACET-1256 PO (20:40)
[2017-01-26] MEDS ORDERED: ACET-1311 PO (20:40)
[2017-01-26 20:57] LABS: URINE APPEARANCE CLEAR (CLEAR); URINE BILIRUBIN NEG (NEG); URINE COLOR YELLOW; URINE NITRITE NEG (NEG); URINE PH 5.5 (4.5-7.5); URINE SPECIFIC GRAVITY 1.011 (1.000-1.030); UROBILINOGEN NEG (NEG)
[2017-01-26 21:01] LABS: MANUAL MICROSCOPIC REQUIRED? NO; REVIEW REQ? NO
[2017-01-26] MEDS ORDERED: ACETAMINOPHEN 500 MG TAB PO STA (21:03)
[2017-01-26 21:39] LABS: BASO % 0.1 %; BASO ABS # 0.01 K/uL (0-0.2); COMPLETE YES; HEMATOCRIT 29.6 % (42-52); LYMPH % 8.4 %; LYMPH ABS # 1.05 K/uL (1.2-3.4); MEAN CELL VOLUME 89.7 fL (80-100); MEAN CORPUSCULAR HEMOGLOBIN 29.4 pg (25-34); MEAN CORPUSCULAR HGB CONC 32.8 g/dl (32-36); MEAN PLATELET VOLUME 8.1 fL (7.4-10.4); MONO % 14.2 %; NEUT % 75.3 %; PLATELET COUNT 257 K/uL (130-400); WHITE BLOOD COUNT 12.57 K/uL (4.8-10.8)
[2017-01-26 22:09] LABS: BUN/CREATININE RATIO 17.8 (10-20); CREATININE 0.83 mg/dl (0.60-1.40); MAGNESIUM 2.5 mg/dl (1.8-2.4); POTASSIUM 3.7 mmol/L (3.5-5.1)
[2017-01-26] MEDS ORDERED: SODIUM CHLORIDE 0.9% 1000ML 1,000 ML IV STA ×2 (22:11)
[2017-01-26 22:19] LABS: CALCIUM 8.3 mg/dl (8.5-10.1); THYROID STIMULATING HORMONE 0.737 uIu/ml (0.300-4.500)
--- NOTE | 2017-01-26 22:41 | DIAGNOSTIC IMAGING REPORT ---
CHEST ONE VIEW PORTABLE CLINICAL HISTORY: Fever. Recent back surgery. COMPARISON STUDY: Chest radiograph May 29, 2016. FINDINGS: Post surgical and post traumatic deformity of the right chest wall is unchanged. Mild elevation of the left hemidiaphragm is unchanged. Lumbar spine hardware is partially imaged. There is no consolidation or evidence of pulmonary edema. Cardiac size is at the upper limits of normal. The appearance of the chest is unchanged. IMPRESSION: No acute cardiopulmonary findings. No change in appearance of the chest. Electronically signed by: Tonio Garcia M.D. 01/26/2017 10:40 PM Dictated Date/Time: 01/26/2017 10:38 PM
[2017-01-26] MEDS ORDERED: NURSING VERBAL MED ORDER ONE (23:15)
[2017-01-27 00:05] VITALS: BP 151/67; PULSE 87; TEMP 36.7; O2SAT 96; Ht 193 cm; Wt 118.3 kg
--- NOTE | 2017-01-27 00:09 | EMERGENCY ROOM VISIT NOTE ---
History Report prepared by Allyssa: Stacy Suggs Under the Supervision of: Dr. Chin Salvador M.D. First contact with patient: 20:22 Chief Complaint: OTHER COMPLAINT Stated Complaint: FEVER History of Present Illness The patient is a 66 year old male who presents to the Emergency Room with complaints of an episode of a fever starting just prior to arrival. The patient states he was discharged from the hospital to [facility]. He states that they took his temperature over there and it was 100.1 degree. The patient states he is feeling okay, but feels a little feverish. He reports that they didn't give him any medicine for his fever. He does report that he has been having Himanshu Horses in his left leg and a dull, achy pain in his back different from his surgery pain. Per medical records, the patient was discharged from [facility] after having a lumbar decompression. He did have a blood transfusion and had no fever. Pt denies LOC, headache, chills, diaphoresis, visual changes, neck pain, chest pain, breathing difficulties, nausea, vomiting, abdominal pain, melena, hematochezia, urinary symptoms, numbness, weakness, lymphadenopathy, rash, or other complaints. Source of History: patient Onset: prior to arrival Position: other (global) Quality: other (global) Timing: other (episode) Associated Symptoms: + back pain, + fevers Note: The patient complains of Himanshu Horses in his legs. Review of Systems See HPI for pertinent positives and negatives. A total of ten systems were reviewed and were otherwise negative. Past Medical & Surgical Medical Problems: (1) BPH (benign prostatic hypertrophy) (2) CAD (coronary artery disease) (3) Depression (4) Dyslipidemia (5) HTN (hypertension) (6) Lumbar stenosis with neurogenic claudication (7) LOLI on CPAP Surgical Problems: (1) H/O shoulder surgery (2) History of total right knee replacement (3) Hx of cardiac cath (4) Post-operative state (5) S/P left knee arthroscopy Family History Cardiac disorder FATHER MOTHER Diabetes mellitus MOTHER Hypertension MOTHER Social History Smoking Status: Never Smoker Drug Use: none Marital Status: Housing Status: lives with significant other Occupation Status: retired Current/Historical Medications Scheduled Acetaminophen (Tylenol), 500 MG PO Q4H Walsh (Walsh), 1,300 MG PO HS Amlodipine (Norvasc), 5 MG PO QAM Aspirin (Aspirin Ec), 81 MG PO QPM Atorvastatin (Lipitor), 40 MG PO HS Citalopram Hydrobromide (Citalopram Hydrobromide), 10 MG PO QAM Furosemide (Lasix), 40 MG PO QAM Gabapentin (Neurontin), 100 MG PO BID Gabapentin (Gabapentin), 200 MG PO HS Magnesium Oxide (Mag-Ox), 400 MG PO BID Methylcellulose (Laxative) (Citrucel Fiber Laxative), 1 TBS PO QPM Metoprolol Succinate (Toprol Xl), 25 MG PO QAM Multivitamin (Multivitamin), 1 TAB PO QAM Terazosin Hcl (Hytrin), 10 MG PO HS Scheduled PRN Acetaminophen (Tylenol), 650 MG PO Q4H PRN for Pain or Fever Nitroglycerin (Nitrostat), 0.4 MG UT UD PRN for Chest Pain Oxycodone HCl (Oxycodone HCl), 5-10 MG PO Q4H PRN for Moderate - severe pain Sennosides (Senokot), 8.6 MG PO HS PRN for Constipation Tizanidine (Zanaflex), 4 MG PO HS PRN for Muscle Spasm Allergies Coded Allergies: Tamsulosin (Verified Allergy, Unknown, ITCHY RASH, 01/21/17) Sulfa Antibiotics (Verified Adverse Reaction, Unknown, rash/prurits per PCP records , 01/21/17) PATIENT HAS OTHER MEDS CONTAINING SULFA WITH NO ISSUE Physical Exam Vital Signs Date Time Temp Pulse Resp B/P Pulse Ox O2 Delivery O2 Flow Rate FiO2 01/26/17 23:43 36.8 85 20 129/48 96 01/26/17 22:39 93 01/26/17 22:39 82 21 131/51 95 Room Air 01/26/17 21:39 86 01/26/17 21:30 37.6 01/26/17 21:19 37.0 89 20 140/53 97 Room Air 01/26/17 20:48 Room Air 01/26/17 19:35 37.2 93 18 149/63 95 Room Air Physical Exam GENERAL: Awake, alert, well-appearing, in no distress HENT: Normocephalic, atraumatic. Oropharynx unremarkable. EYES: Normal conjunctiva. Sclera non-icteric. NECK: Supple. No nuchal rigidity. FROM. No JVD. RESPIRATORY: Clear to auscultation. CARDIAC: Regular rate, normal rhythm. Extremities warm and well perfused. Pulses equal. ABDOMEN: Soft, non-distended. No tenderness to palpation. No rebound or guarding. No masses. BACK: Incision is clean, dry, and intact. No surrounding erythema, puss, or drainage. minimal amount of serous and bloody drainage dry on the bandage. RECTAL: Deferred. MUSCULOSKELETAL: The back is symmetrical on inspection without obvious abnormality. There is no CVA tenderness to palpation. No joint edema. LOWER EXTREMITIES: Calves are equal size bilaterally and non-tender. Trace +1 edema (patient states is chronic). No discoloration. NEURO: Normal sensorium. No sensory or motor deficits noted. SKIN: No rash or jaundice noted. Medical Decision & Procedures ER Provider Diagnostic Interpretation: Radiology results as stated below per my review and radiologist interpretation: CHEST ONE VIEW PORTABLE CLINICAL HISTORY: Fever. Recent back surgery. COMPARISON STUDY: Chest radiograph May 29, 2016. FINDINGS: Post surgical and post traumatic deformity of the right chest wall is unchanged. Mild elevation of the left hemidiaphragm is unchanged. Lumbar spine hardware is partially imaged. There is no consolidation or evidence of pulmonary edema. Cardiac size is at the upper limits of normal. The appearance of the chest is unchanged. IMPRESSION: No acute cardiopulmonary findings. No change in appearance of the chest. Electronically signed by: Tonio Garcia M.D. 01/26/2017 10:40 PM Dictated Date/Time: 01/26/2017 10:38 PM Laboratory Results 01/26/17 21:25 Red Blood Count 3.30, Mean Corpuscular Volume 89.7, Mean Corpuscular Hemoglobin 29.4, Mean Corpuscular Hemoglobin Concent 32.8, Mean Platelet Volume 8.1, Neutrophils (%) (Auto) 75.3, Lymphocytes (%) (Auto) 8.4, Monocytes (%) (Auto) 14.2, Eosinophils (%) (Auto) 1.0, Basophils (%) (Auto) 0.1, Neutrophils # (Auto ) 9.47, Lymphocytes # (Auto) 1.05, Monocytes # (Auto) 1.79, Eosinophils # (Auto ) 0.13, Basophils # (Auto) 0.01 01/26/17 21:25 Test 01/26/17 20:40 01/26/17 21:25 01/26/17 21:34 Urine Color YELLOW Urine Appearance CLEAR (CLEAR) Urine pH 5.5 (4.5-7.5) Urine Specific [place] 1.011 (1.000-1.030) Urine Protein NEG (NEG) Urine Glucose (UA) NEG (NEG) Urine Ketones NEG (NEG) Urine Occult Blood NEG (NEG) Urine Nitrite NEG (NEG) Urine Bilirubin NEG (NEG) Urine Urobilinogen NEG (NEG) Urine Leukocyte Esterase NEG (NEG) White Blood Count 12.57 K/uL (4.8-10.8) Red Blood Count 3.30 M/uL (4.7-6.1) Hemoglobin 9.7 g/dL (14.0-18.0) Hematocrit 29.6 % (42-52) Mean Corpuscular Volume 89.7 fL (80-100) Mean Corpuscular Hemoglobin 29.4 pg (25-34) Mean Corpuscular Hemoglobin Concent 32.8 g/dl (32-36) Platelet Count 257 K/uL (130-400) Mean Platelet Volume 8.1 fL (7.4-10.4) Neutrophils (%) (Auto) 75.3 % Lymphocytes (%) (Auto) 8.4 % Monocytes (%) (Auto) 14.2 % Eosinophils (%) (Auto) 1.0 % Basophils (%) (Auto) 0.1 % Neutrophils # (Auto) 9.47 K/uL (1.4-6.5) Lymphocytes # (Auto) 1.05 K/uL (1.2-3.4) Monocytes # (Auto) 1.79 K/uL (0.11-0.59) Eosinophils # (Auto) 0.13 K/uL (0-0.5) Basophils # (Auto) 0.01 K/uL (0-0.2) RDW Standard Deviation 47.2 fL (36.4-46.3) RDW Coefficient of Variation 14.3 % (11.5-14.5) Immature Granulocyte % (Auto) 1.0 % Immature Granulocyte # (Auto) 0.12 K/uL (0.00-0.02) Anion Gap 7.0 mmol/L (3-11) Est Creatinine Clear Calc Drug Dose 119.7 ml/min Estimated GFR () 104.8 Estimated GFR (Non- 90.4 BUN/Creatinine Ratio 17.8 (10-20) Calcium Level 8.3 mg/dl (8.5-10.1) Magnesium Level 2.5 mg/dl (1.8-2.4) Total Bilirubin 0.7 mg/dl (0.2-1) Direct Bilirubin 0.2 mg/dl (0-0.2) Aspartate Amino Transf (AST/SGOT) 65 U/L (15-37) Alanine Aminotransferase (ALT/SGPT) 55 U/L (12-78) Alkaline Phosphatase 75 U/L (45-117) Total Protein 6.1 gm/dl (6.4-8.2) Albumin 2.3 gm/dl (3.4-5.0) Lipase 47 U/L (73-393) Thyroid Stimulating Hormone (TSH) 0.737 uIu/ml (0.300-4.500) Bedside Lactic Acid Venous 2.01 mmol/L (0.90-1.70) Laboratory results reviewed by me Medications Administered Medications (Trade) Dose Ordered Sig/Rachel Route Start Time Stop Time Status Last Admin Dose Admin Acetaminophen 1000 mg 1,000 mg NOW STAT PO 01/26/17 21:03 01/26/17 21:05 DC 01/26/17 21:30 1,000 MG Sodium Chloride 1,000 ml @ 999 mls/hr Q1H1M STAT IV 01/26/17 22:11 01/26/17 23:11 DC 01/26/17 22:22 999 MLS/HR Sodium Chloride (Nss 1000ml) 1,000 ml @ 200 mls/hr Q5H STAT IV 01/26/17 22:11 01/27/17 03:10 01/26/17 22:22 200 MLS/HR ED Course 2057: The patient was evaluated in room A11. A complete history and physical exam was performed. 2102: Ordered Tylenol Tab 1000 mg PO. 2210: Ordered NSS 1000 ml @ 200 mls/hr IV, NSS 1000 ml @ 999 mls/hr IV. 2241: I discussed the patient's case with Dr. Pierce. The patient will be evaluated for further treatment and disposition. Medical Decision Triage Nursing notes reviewed. The patient's presentation and history were concerning for possible fever and recent surgery. Etiologies such as postop wound infection, atelectasis, urinary tract infection , viral syndrome, pneumonia, sepsis, bacteremia, as well as others were entertained. The patient was evaluated. Currently he looked well. I did check his temperature myself and it was 38.0. The patient was given Tylenol. He was evaluated and had a benign abdomen. The patient had an unremarkable looking surgical wound. The patient's chest x-ray and urinalysis were unremarkable. His CBC showed a slight leukocytosis which was different than prior. He has a mild anemia as well. Chemistry panel was unremarkable. Consultation was made with his spine surgeon Dr. Pierce discharge the patient today. Findings were discussed. He would prefer the patient to be brought into the hospital for observation and felt wound infection was less likely given the patient's hospital course. Blood cultures were sent. We did discuss his leukocytosis as well as the mild elevation of his lactate. The patient can ambulate without difficulty. He has no hypotension or tachycardia. The chart was completed utilizing [employer] Speech voice recognition software. Grammatical errors, random word insertions, pronoun errors, and incomplete sentences are an occasional consequence of this system due to software limitations, ambient noise, and hardware issues. Any formal questions or concerns about the content, text, or information contained within the body of this dictation should be directly addressed to the physician for clarification. Consults Time Called: [id number] Consulting Physician: Dr. Pierce Returned Call: [phone] I discussed the patient's case with Dr. Pierce. The patient will be evaluated for further treatment in the hospital. Impression Primary Impression: Postoperative fever Scribe Attestation The scribe's documentation has been prepared under my direction and personally reviewed by me in its entirety. I confirm that the note above accurately reflects all work, treatment, procedures, and medical decision making performed by me. Departure Information Dispostion Being Evaluated By Surgeon Isabel Schuster M.D. (PCP) Patient Instructions [facility]
[2017-01-27] MEDS ORDERED: SENNA 8.6 MG TAB PO PRN (00:15)
[2017-01-27] MEDS ORDERED: IV FLUIDS COMPLETED PRN (00:15)
[2017-01-27] MEDS ORDERED: ACETAMINOPHEN 500 MG TAB PO PRN (00:30)
[2017-01-27] MEDS ORDERED: HYDROmorphone INJ 2 MG/ML SYR/VIAL IV PRN (00:30)
[2017-01-27] MEDS: OXYCODONE/ACETAMINOPHEN 5-325 TAB PO PRN ×3 (00:40→13:17)
[2017-01-27] MEDS: SODIUM CHLORIDE 0.9% 1000ML 1,000 ML IV SCH ×3 (00:41→20:09)
[2017-01-27] MEDS ORDERED: ONDANSETRON INJ 2 MG/ML 2 ML VIAL IV PRN (01:00)
[2017-01-27] MEDS ORDERED: NITROGLYCERIN 0.4 MG SL PER TAB CHARGE SL PRN (01:00)
[2017-01-27] MEDS: HYDROmorphone INJ 1 MG/ML SYR IV PRN ×3 (03:34→18:05)
[2017-01-27 07:38] VITALS: BP 107/61; PULSE 82; TEMP 36.7; O2SAT 95
[2017-01-27] MEDS: GABAPENTIN 100 MG CAP PO SCH ×3 (08:30→21:29)
[2017-01-27] MEDS: ASPIRIN 81 MG ECTAB PO SCH (08:30)
[2017-01-27] MEDS: FUROSEMIDE 40 MG TAB PO SCH (08:30)
[2017-01-27] MEDS: METOPROLOL SUCC 25MG EXT REL TAB PO SCH (08:31)
[2017-01-27] MEDS: MAGNESIUM OXIDE 400 MG TAB PO SCH ×2 (08:31→21:29)
[2017-01-27] MEDS: AMLODIPINE BESYLATE 5 MG TAB PO SCH (08:31)
[2017-01-27] MEDS: CITALOPRAM 20 MG TAB PO SCH (08:31)
[2017-01-27] MEDS: MULTIVITAMIN TAB PO SCH (08:32)
[2017-01-27] MEDS ORDERED: SOD PHOSPHATE/SOD BIPHOSPHATE ENEMA 132 ML BTL PR ONE (10:00)
--- NOTE | 2017-01-27 12:00 | HISTORY & PHYSICAL EXAMINATION ---
DATE OF ADMISSION: 01/26/2017 HISTORY OF PATIENT'S PROBLEMS: A 66-year-old male who is well known to me having undergone thoracolumbar decompression and fusion. He was discharged to group home yesterday. Unfortunately, he developed a temperature of 100.5 last evening at the group home and was brought to the [facility] for evaluation. Upon arrival, he again had a temperature of 37.6, labs demonstrating white count of 12.5, which was a significant increase from the previous day when it was 8. He does, however, deny any significant increase in back pain or leg symptoms. He is ambulating with a walker without significant difficulty per history. He denies any recent bowel movement since the past 3 days. PAST MEDICAL HISTORY: Significant for BPH, CAD, depression, hypertension. PAST SURGICAL HISTORY: Includes shoulder surgery, knee surgery, cardiac catheterization. MEDICATIONS: Can be found on the chart for further review. PHYSICAL EXAMINATION: Today he has been afebrile since admission. He exhibits excellent strength to the right lower extremity, again a sustained footdrop on the left, otherwise normal strength on the left. Sensory is symmetric and intact. Incision is clean, dry and intact. No erythema or drainage. There is no significant tenderness to palpation throughout the thoracolumbar incision. There is some modest appreciable swelling only. This would be normal for his postoperative date. Abdomen is soft. ASSESSMENT: Status post thoracolumbar fusion. PLAN: At this time, we will be watching him closely checking his vitals q. 4 hours. He will be able to perform activity as tolerated with his walker. We did give him an enema today. Hopefully, the increase in his bowel function will also coincide with no longer having low grade temperatures. Again, we will follow him closely the next few days and hopefully return to the group home for the weekend.
[2017-01-27 14:54] VITALS: BP 132/68; PULSE 84; TEMP 36.9; O2SAT 96
[2017-01-27] MEDS ORDERED: NURSING VERBAL MED ORDER ONE (19:15)
[2017-01-27] MEDS ORDERED: MAGNESIUM CITRATE 296 ML/BTL PO ONE (19:30)
[2017-01-27] MEDS: POLYETHYLENE (MIRALAX) 17 GM PACK PO SCH (20:09)
[2017-01-27] MEDS: METHYLCELLULOSE POWDER 454 GM JAR PO SCH (21:29)
[2017-01-27] MEDS: DOCUSATE SODIUM 100 MG CAP PO SCH (21:29)
[2017-01-27] MEDS: ATORVASTATIN 40 MG TAB PO SCH (21:29)
[2017-01-28 00:07] VITALS: BP 105/57; PULSE 93; TEMP 36.8; O2SAT 95
[2017-01-28 00:55] VITALS: PULSE 88; O2SAT 96
[2017-01-28] MEDS: OXYCODONE/ACETAMINOPHEN 5-325 TAB PO PRN ×5 (02:34→23:54)
[2017-01-28] MEDS: SODIUM CHLORIDE 0.9% 1000ML 1,000 ML IV SCH ×2 (06:01→15:56)
[2017-01-28 08:08] VITALS: BP 129/60; PULSE 92; TEMP 36.8; O2SAT 98
[2017-01-28] MEDS: POLYETHYLENE (MIRALAX) 17 GM PACK PO SCH ×3 (08:33→17:23)
[2017-01-28] MEDS: METOPROLOL SUCC 25MG EXT REL TAB PO SCH (08:34)
[2017-01-28] MEDS: AMLODIPINE BESYLATE 5 MG TAB PO SCH (08:35)
[2017-01-28] MEDS: GABAPENTIN 100 MG CAP PO SCH ×3 (08:35→20:53)
[2017-01-28] MEDS: CITALOPRAM 20 MG TAB PO SCH (08:35)
[2017-01-28] MEDS: FUROSEMIDE 40 MG TAB PO SCH (08:35)
[2017-01-28] MEDS: ASPIRIN 81 MG ECTAB PO SCH (08:35)
[2017-01-28] MEDS: MAGNESIUM OXIDE 400 MG TAB PO SCH ×2 (08:36→20:54)
[2017-01-28] MEDS: MULTIVITAMIN TAB PO SCH (08:36)
[2017-01-28] MEDS: DOCUSATE SODIUM 100 MG CAP PO SCH ×2 (08:36→20:54)
[2017-01-28] MEDS ORDERED: SOD PHOSPHATE/SOD BIPHOSPHATE ENEMA 132 ML BTL PR ONE (08:45)
--- NOTE | 2017-01-28 09:23 | PROGRESS NOTE ---
DATE: 01/28/2017 HISTORY OF PRESENT ILLNESS: Mr. Robison still not had a bowel movement today. His pain is controlled, however. He denies any nausea, vomiting or issues. He is ambulating well with a walker. PHYSICAL EXAMINATION: On exam, again he has been afebrile since admission. LABORATORY DATA: Blood cultures continue to be negative. ASSESSMENT: Status post thoracolumbar fusion. PLAN: At this time, we will continue to advance his bowel regimen and encourage ambulation. Hopefully, be able [facility].
[2017-01-28 14:52] VITALS: BP 120/57; PULSE 88; TEMP 36.8; O2SAT 96
[2017-01-28] MEDS: ATORVASTATIN 40 MG TAB PO SCH (20:54)
[2017-01-28] MEDS: METHYLCELLULOSE POWDER 454 GM JAR PO SCH (20:56)
[2017-01-29 01:05] VITALS: PULSE 67; O2SAT 96
[2017-01-29] MEDS: SODIUM CHLORIDE 0.9% 1000ML 1,000 ML IV SCH (01:57)
[2017-01-29] MEDS: OXYCODONE/ACETAMINOPHEN 5-325 TAB PO PRN ×2 (06:14→11:57)
[2017-01-29 07:53] VITALS: BP 116/59; PULSE 88; TEMP 36.8; O2SAT 90
--- NOTE | 2017-01-29 08:25 | Discharge Instructions ---
Discharge Instructions Date of Service January 29, 2017. Admission Reason for Admission: Post-Op Fever Discharge Discharge Diagnosis / Problem: stenosis Discharge Goals Goal(s): Improve function Activity Recommendations Activity Limitations: per Instructions/Follow-up section . Instructions / Follow-Up Instructions / Follow-Up ACTIVITY RECOMMENDATIONS: SELF CARE INSTRUCTIONS AFTER THORACIC/LUMBAR FUSIONS 1. You may walk to your tolerance. It is good exercise for your legs and back. Expect some back and intermittent leg aches and pains. 2. You may perform "counter-top" level activities (make a sandwich, nellie with a project, etc.). 3. No bending or lifting of more than 10 pounds or back twisting of any nature (roll like a log when turning in bed). 4. You may ride in a car for 20-30 minutes at a time. No driving until after your first visit with your doctor. 5. Frequent changes of position and restricting sitting to 30 minutes at a time will help limit the amount of back spasms and stiffness you may experience. 6. You may discontinue the use of ambulatory aids (cane, crutches, etc.) once your strength and confidence allow. 7. You may insulation board head saw operator the shower and let water strike your incision when you arrive home at least once daily. Do not take a tub bath, sit in a hot tub or go into a swimming pool until after your first recheck in the office. SPECIAL CARE INSTRUCTIONS: VERY IMPORTANT TO READ AND REVIEW A. Your surgical incision has been closed with a cosmetic suture under the skin that will dissolve in about 6 weeks. In 14 days, you can use a pair of clean scissors and cut the suture that is left outside of the skin at the ends of your incision. 1. The small skin tapes can be removed 7 days after surgery if they have not fallen off by that point. 2. You may keep the wound open to air as much as possible to promote healing after post-op day number 5 unless told otherwise by your doctor. 3. If you think the wound looks like it is becoming infected (redness or worsening drainage) and/or you are experiencing fever, chill or worsening back pain and muscle spasms, contact the office so that we may evaluate you as soon as possible. B. Complications are uncommon, but please contact us if you have any signs or symptoms of: 1. wound infection (fever higher than 102.5 degrees F, redness, separation of wound, drainage, or increasing pain from the incision) 2. blood clots in legs (pain, swelling, redness and warmth in legs) 3. urinary tract infection (fever higher than 102.5 degrees F, burning upon urination or increased frequency of urination) 4. nerve problems (inability to walk on your toes or heels, numbness, loss of bowel or bladder control) 5. any other symptoms that concern you C. Please call the office at if you have any concerns or questions about your operation or recovery. D. No smoking! Smoking drastically decreases the chance of a solid fusion. E. Do not take any anti-inflammatory medications (Indocin, Advil, Motrin, Aspirin, Naprosyn, etc.) as these may inhibit the chance of a solid fusion. Tylenol is okay to take for pain. MANAGING PAIN AFTER SPINAL SURGERY 1. Narcotic medication is intended for short-term use and will be provided for surgical pain. Surgical pain usually lasts for a period of 4-6 weeks. Narcotic medication includes Percocet, Vicodin, Darvocet, Tylenol #3 or Lortab. 2. Longer-term pain is more appropriately treated with non-narcotic medication such as Tylenol ES. 3. Muscle spasm is not appropriately treated with narcotics. Muscle relaxers such as Soma, Flexeril or Skelaxin can be used along with Tylenol ES. 4. Remember that we all live with some "aches and pains". This is not unusual or uncommon after an injury or as we get older. a. Back pain is expected and may include muscle spasms for 4 to 6 weeks after surgery. The pain should gradually improve. If the pain worsens for no apparent reason, please contact the office. b. Intermittent leg pain may also be experienced and should not be concerned about unless it worsens for no apparent reason. If so, please contact the office. 5. We will provide appropriate medication within the normal guidelines of their prescribed use. We will also be very cautious and aware of potential abuse and extended duration of patients' medication needs. a. Pain medications are for your comfort and to assist with sleep and rest so that the tissue can heal. They are not provided in order to return to normal activity and should not be used through the day. To do so or worsening pain at night can result from ongoing tissue damage and development of tolerance to the prescribed medicine. 6. Please allow 2-3 days to process refills. Prescriptions will not be mailed but must be picked up at the office. FOLLOW UP VISIT: Keep your scheduled follow-up appointment. Any questions, please call the office at . Current Hospital Diet Patient's current hospital diet: Regular Diet Discharge Diet Recommended Diet: Regular Diet Pending Studies Studies pending at discharge: no Medical Emergencies . Who to Call and When: Medical Emergencies: If at any time you feel your situation is an emergency, please call 911 immediately. . Non-Emergent Contact Non-Emergency issues call your: Primary Care Provider . "Provider Documentation" section prepared by Tavo Pierce. . VTE Core Measure Inpt VTE Proph given/why not?: Miguel Bennett, SCD's
[2017-01-29] MEDS: CITALOPRAM 20 MG TAB PO SCH (08:38)
[2017-01-29 08:40] VITALS: BP 134/68; PULSE 94
[2017-01-29] MEDS: METOPROLOL SUCC 25MG EXT REL TAB PO SCH (08:40)
[2017-01-29] MEDS: ASPIRIN 81 MG ECTAB PO SCH (08:42)
[2017-01-29] MEDS: AMLODIPINE BESYLATE 5 MG TAB PO SCH (08:42)
[2017-01-29] MEDS: MAGNESIUM OXIDE 400 MG TAB PO SCH (08:42)
[2017-01-29] MEDS: MULTIVITAMIN TAB PO SCH (08:43)
[2017-01-29] MEDS: GABAPENTIN 100 MG CAP PO SCH (08:43)
[2017-01-29] MEDS: FUROSEMIDE 40 MG TAB PO SCH (08:44)
--- NOTE | 2017-01-29 08:54 | DISCHARGE SUMMARY ---
DATE OF DISCHARGE: 01/29/2017. PRINCIPAL DIAGNOSIS: Postop constipation. HOSPITAL COURSE FOLLOWS: On 01/26/2017 patient was brought to Emergency Room from the alf with concerns of a low grade temperature. He was admitted to the hospital for observation. Throughout his stay, the blood cultures are negative. He did not have another fever throughout his hospital stay. I strongly suspect it was his constipation as etiology. Be began an aggressive bowel regimen which worked very nicely and subsequently on 01/29/2017 after several bowel movements pain controlled, ambulating well and discharged back to the alf. Discharge orders and instructions can be found on the chart for further review.
[2017-01-29] MEDS: DOCUSATE SODIUM 100 MG CAP PO SCH (09:01)
[2017-01-29] MEDS: POLYETHYLENE (MIRALAX) 17 GM PACK PO SCH (11:43)
[2017-01-29 12:13] VITALS: BP 134/68; PULSE 94; TEMP 36.8; O2SAT 90
== END 2017-01-29 12:00 | disposition home or self-care (01) ==
LOC: ENRESERVTM → ENRESERVDT → C.EDA 19:30 → EDBD 19:30 → C.MSW 23:07
PROVIDERS: ADMIT Orthopaedic Surgery Orthopaedic Surgery of the Spine; ATTEND Orthopaedic Surgery Orthopaedic Surgery of the Spine
DX: R50.82 Postprocedural fever (principal); K59.09 Other constipation; I25.10 Atherosclerotic heart disease of native coronary artery without angina pectoris; I10 Essential (primary) hypertension; E78.5 Hyperlipidemia, unspecified; G47.33 Obstructive sleep apnea (adult) (pediatric); N40.0 Benign prostatic hyperplasia without lower urinary tract symptoms; M48.06 Spinal stenosis, lumbar region; I73.9 Peripheral vascular disease, unspecified; Z83.3 Family history of diabetes mellitus; Z82.49 Family history of ischemic heart disease and other diseases of the circulatory system; Z79.82 Long term (current) use of aspirin; Z79.899 Other long term (current) drug therapy; F32.9 Major depressive disorder, single episode, unspecified

== ENCOUNTER 2023-12-22 07:55 | Inpatient (IN) ==
--- NOTE | 2023-12-01 11:47 | PAT Medication Instructions ---
Medication Instructions Date of Service December 01, 2023 Home Medications acetaminophen 500 mg tablet 1,000 mg PO HS alfalfa 250 mg tablet 1,200 mg PO HS amlodipine 5 mg tablet (Norvasc) 5 mg PO QAM aspirin 81 mg capsule 81 mg PO QPM atorvastatin 40 mg tablet (Lipitor) 40 mg PO PM celecoxib 200 mg capsule (Celebrex) 200 mg PO QAM diosmin complex no.1 630 mg tablet (Vasculera) 1 tab PO QAM duloxetine 60 mg capsule,delayed release (Cymbalta) 60 mg PO QPM furosemide 40 mg tablet (Lasix) 40 mg PO QAM gabapentin 400 mg capsule (Neurontin) 400 mg PO TID ibuprofen 600 mg tablet 600 mg PO HS magnesium oxide 400 mg (241.3 mg magnesium) tablet 400 mg PO QPM methylcellulose (with sugar) oral powder packet 1 ea PO QAM metoprolol succinate 25 mg tablet,extended release 24 hr (Toprol XL) 25 mg PO QAM [id number] 300 mcg-K 60 mcg-lycop 600 mcg-lutein 300 mcg tablet ([employer] Senior Men's) 1 tab PO QAM nitroglycerin 0.4 mg sublingual tablet 0.4 mg sublingual UD PRN omeprazole 40 mg capsule,delayed release 40 mg PO QAM oxybutynin chloride 10 mg tablet,extended release 24 hr 10 mg PO QAM ropinirole 2 mg tablet,extended release 24 hr 2 mg PO HS saw palmetto 320 mg capsule 640 mg PO QAM terazosin 10 mg capsule 10 mg PO HS tizanidine 4 mg tablet 4 mg PO HS PRN Continue as directed nitroglycerin 0.4 mg sublingual tablet 0.4 mg sublingual UD PRN(if needed) ASK your surgeon for instructions celecoxib 200 mg capsule (Celebrex) 200 mg PO QAM ibuprofen 600 mg tablet 600 mg PO HS ASK your prescriber and surgeon aspirin 81 mg capsule 81 mg PO QPM STOP taking 2 weeks before surgery (or as soon as possible if surgery is within 2 weeks) alfalfa 250 mg tablet 1,200 mg PO HS diosmin complex no.1 630 mg tablet (Vasculera) 1 tab PO QAM [id number] 300 mcg-K 60 mcg-lycop 600 mcg-lutein 300 mcg tablet ([employer] Senior Men's) 1 tab PO QAM saw palmetto 320 mg capsule 640 mg PO QAM DO NOT take the morning of surgery furosemide 40 mg tablet (Lasix) 40 mg PO QAM methylcellulose (with sugar) oral powder packet 1 ea PO QAM oxybutynin chloride 10 mg tablet,extended release 24 hr 10 mg PO QAM Take morning of surgery With a small sip of water, OTHERWISE NOTHING TO EAT OR DRINK AFTER MIDNIGHT: amlodipine 5 mg tablet (Norvasc) 5 mg PO QAM gabapentin 400 mg capsule (Neurontin) 400 mg PO TID metoprolol succinate 25 mg tablet,extended release 24 hr (Toprol XL) 25 mg PO QAM omeprazole 40 mg capsule,delayed release 40 mg PO QAM Take evening before surgery acetaminophen 500 mg tablet 1,000 mg PO HS atorvastatin 40 mg tablet (Lipitor) 40 mg PO PM duloxetine 60 mg capsule,delayed release (Cymbalta) 60 mg PO QPM gabapentin 400 mg capsule (Neurontin) 400 mg PO TID magnesium oxide 400 mg (241.3 mg magnesium) tablet 400 mg PO QPM ropinirole 2 mg tablet,extended release 24 hr 2 mg PO HS terazosin 10 mg capsule 10 mg PO HS tizanidine 4 mg tablet 4 mg PO HS PRN(if needed) Other Notes If you have any questions please call us at [phone] or [phone] or [phone] or [phone]
--- NOTE | 2023-12-06 13:31 | Anesthesiology Consultation ---
Date of Service December 06, 2023 Assessment & Plan (1) Encounter for pre-operative examination: - fax PAT testing to [facility] PCP Dr. Butt: awaiting final medical clearance. - cardiology clearance 11/22/23: "...cardiac risk assessment: low...may hold Aspirin > or =5 days prior to the procedure and resume when felt to be safe following the procedure..." - PCP pre-op appointment 11/24/23: "...indeterminate medical risk for the listed procedure. Low cardiac risk but intermediate to high risk from a sleep apnea standpoint...to have labs, ECG and chest x-ray..." - cardiology office visit 09/06/23: "...CAD with prior angioplasty and RCA stenting...catheterization performed in October of 2015 which showed a borderline ostial left Cx lesion with insignificant fractional flow reserve that was treated medically...also has a history of bilateral carotid stenosis...left subclavian stenosis...will repeat nuclear stress test for risk assessment...may be requiring repeat back surgery in the near future...does not have any symptoms suggestive of subclavian steal either...recommend continued surveillance...repeat Doppler of his arms to be completed in 1 year..." Chart Review Chart Review: Pending: Refer to Additional Notes / Consult section and Patient seen in Pre Admission Testing Teaching & Discussion Pre-Anesthesia Teaching/Discussion Notes: Instructed NPO after midnight before surgery, except medications with 15 cc of water. Medication instructions provided according to the PAT guidelines. History Surgery Operation Date: 12/22/23 10:05 Proposed Procedures p T12 Screw Removal, T7-T10 Decompression, T7-T12 Fusion, Spinal Cord Monitoring - Tavo Pierce, Height/Weight Height: 6 ft 4 in Weight: 119.5 kg Allergies Allergy/AdvReac Type Severity Reaction Status Date / Time tamsulosin Allergy Unknown ITCHY RASH Verified 11/24/23 07:56 Sulfa (Sulfonamide AdvReac Unknown rash/itching Verified 12/06/23 13:39 Antibiotics) per PCP records Medications Home Medications Medication Instructions Recorded Confirmed Last Taken acetaminophen 500 mg tablet 1,000 mg PO HS 11/24/23 11/24/23 Unknown alfalfa 250 mg tablet 1,200 mg PO HS 11/24/23 11/24/23 Unknown amlodipine 5 mg tablet (Norvasc) 5 mg PO QAM 11/24/23 11/24/23 Unknown aspirin 81 mg capsule 81 mg PO QPM 11/24/23 11/24/23 Unknown atorvastatin 40 mg tablet (Lipitor) 40 mg PO PM 11/24/23 11/24/23 Unknown celecoxib 200 mg capsule (Celebrex) 200 mg PO QAM 11/24/23 11/24/23 Unknown diosmin complex no.1 630 mg tablet 1 tab PO QA 11/24/23 11/24/23 Unknown (Vasculera) duloxetine 60 mg capsule,delayed 60 mg PO QPM 11/24/23 11/24/23 Unknown release (Cymbalta) furosemide 40 mg tablet (Lasix) 40 mg PO QAM 11/24/23 11/24/23 Unknown gabapentin 400 mg capsule 400 mg PO TID 11/24/23 11/24/23 Unknown (Neurontin) ibuprofen 600 mg tablet 600 mg PO HS 11/24/23 11/24/23 Unknown magnesium oxide 400 mg (241.3 mg 400 mg PO QPM 11/24/23 11/24/23 Unknown magnesium) tablet methylcellulose (with sugar) oral 1 ea PO QA 11/24/23 11/24/23 Unknown powder packet metoprolol succinate 25 mg 25 mg PO [facility] 11/24/23 11/24/23 Unknown tablet,extended release 24 hr (Toprol XL) bberqwrk-ph-pdowp 300 mcg-K 60 1 tab PO QA 11/24/23 11/24/23 Unknown mcg-lycop 600 mcg-lutein 300 mcg tablet ([employer] Senior [employer]'s) nitroglycerin 0.4 mg sublingual 0.4 mg sublingual UD PRN Chest Pain 11/24/23 11/24/23 Unknown tablet omeprazole 40 mg capsule,delayed 40 mg PO QA 11/24/23 11/24/23 Unknown release oxybutynin chloride 10 mg 10 mg PO QA 11/24/23 11/24/23 Unknown tablet,extended release 24 hr ropinirole 2 mg tablet,extended 2 mg PO 11/24/23 11/24/23 Unknown release 24 hr saw palmetto 320 mg capsule 640 mg PO QA 11/24/23 11/24/23 Unknown terazosin 10 mg capsule 10 mg PO 11/24/23 11/24/23 Unknown tizanidine 4 mg tablet 4 mg PO HS PRN Muscle Pain 11/24/23 11/24/23 Unknown Past Medical History Medical History (Updated 12/06/23 @ 13:41 by Viviana Narayanan PA-C) Arthritis BPH (benign prostatic hyperplasia) CAD (coronary artery disease) s/p 1 RCA stent 2005 Carotid artery stenosis Depression GERD (gastroesophageal reflux disease) controlled, stable per pt History of blood transfusion during femoral artery repair Hypertension controlled, stable per pt Lumbar stenosis Restless leg syndrome Sleep apnea CPAP at night Subclavian artery stenosis, left Patient denies h/o stroke, seizures, heart failure, DM, or blood clots/DVTs. Exercise / Class Metabolic Activity II 4-5 Yardwork/Stairs/Walk up hill (denies chest discomfort or shortness of breath with 1 FOS) Past Surgical History Surgical History History of back surgery (~2016) screws & rods, [facility] History of carpal tunnel surgery of left wrist (~2019) History of surgery (~08/05/06) right femoral artery rupture repair, [place] History of total right knee replacement (~2015) Hx of arthroscopy of left knee (~1980) Hx of arthroscopy of right knee x2 1984 & 2000 Hx of bilateral cataract extraction (~2021) Hx of cardiac cath (~08/24/06) x 1 stent, [facility], Dr. [facility]; 2016: no stent Hx of colonoscopy Hx of hand surgery (~1995) multiple, right hand, finger tendon and trigger finger release Hx of repair of left rotator cuff (~10/28/20) Hx of shoulder surgery (~2009) right scapular fusion Hx of shoulder surgery (~2007) RT shoulder reconstruction x 2, 2008 & 2007; hardware removal 2008 Past Anesthesia History No Hx of Anesthesia Complications and No Family Hx of Anesthesia Complications History of PONV No Hx of PONV and No Hx of Motion Sickness Social History Smoking Status: Never smoker Do You Dip or Chew Tobacco: No Hx Alcohol Use: Yes alcohol intake frequency: a few times a month Hx Substance Use: No substance use type: does not use Review of Systems Patient denies chest pain, shortness of breath, dyspnea on exertion, fever, chills, cough, wheezing, or palpitations. Physical Exam Vital Signs Vitals BP 121/61 P 72 TEMP 98.8 SP02 94% on RA RESP 18 Physical Patient resting comfortably in chair in no acute distress, alert and oriented, responding appropriately throughout visit Full cervical extension range of motion without pain TMD 3.5 finger breadths Mallampati Score 3 Dentition: several chipped teeth, denies chipped or loose teeth, caps/crowns, implants or bridges Lungs: normal respiratory effort. Good air movement, clear throughout to auscultation, no adventitious breath sounds Cardiac: regular rate and rhythm, no murmurs noted Carotid arteries: negative bruit bilat Lab Results Anesthesia Preop Results Results Anesthesia Widget: WBC 4.88 K/ul (4.8-10.8) 12/06/23 Hgb 13.9 g/dl (14.0-18.0) L 12/06/23 Hct 42.7 % (42.0-52.0) 12/06/23 Plt 179 K/uL (130-400) 12/06/23 Na 142 mmol/L (136-145) 12/06/23 K 4.6 mmol/L (3.5-5.1) 12/06/23 Cl 107 mmol/L (98-107) 12/06/23 CO2 31 mmol/L (21-32) 12/06/23 BUN 19 mg/dl (6-23) 12/06/23 Creat 0.65 mg/dl (0.6-1.4) 12/06/23 Glucose Level 96 mg/dl (70-99(Fasting)) 12/06/23 PT 10.9 Seconds (9.0-12.0) 12/06/23 PTT 28 Seconds (21-31) 12/06/23 INR 1.0 (0.9-1.1) 12/06/23 Urine Color Yellow 12/06/23 Urine Appearance Clear (Clear) 12/06/23 Urine pH 8.5 (4.5-7.5) H 12/06/23 Urine Specific [place] 1.020 (1.000-1.030) 12/06/23 Urine Protein Negative (Negative) 12/06/23 Urine Glucose (UA) Negative (Negative) 12/06/23 Urine Ketones Negative (Negative) 12/06/23 Urine Blood Negative (Negative) 12/06/23 Urine Nitrite Negative (Negative) 12/06/23 Urine Bilirubin Negative (Negative) 12/06/23 Urine Urobilinogen Negative (Negative) 12/06/23 Urine Leukocyte Esterase Negative (Negative) 12/06/23 Blood Type A Positive 12/06/23 Antibody Screen NEGATIVE 12/06/23 Testing Electrocardiogram Date: 12/06/23 NSR with sinus arrhythmia, rate 70 bpm Chest X-Ray Date: 12/06/23 No acute process. Stress Test Date: 09/29/23 Pharmacologic "probably normal, however there is evidence of attenuation defect/artifact" Small sized non-reversible defect in the apical inferior and inferolateral trivedi. The defect appears to be probable artifact caused by subdiaphragmatic activity, apical thinning and diaphragmatic attenuation. EF 52% Low risk study for inducible ischemia
[2023-12-22] MEDS ORDERED: fentaNYL citrate PF 100 MCG/2 ML VIAL ONE (08:31)
[2023-12-22] MEDS ORDERED: LIDOCAINE 2% 2 ML VIAL/AMP(20MG/ML) INFIL ONE (08:31)
[2023-12-22] MEDS ORDERED: ONDANSETRON INJ 2 MG/ML 2 ML VIAL ONE (08:31)
[2023-12-22] MEDS ORDERED: ROCURONIUM BROMIDE 10 MG/ML 5 ML VIAL IV ONE (08:31)
[2023-12-22] MEDS ORDERED: MIDAZOLAM HCL 1 MG/ML 2ML VIAL ONE (08:31)
[2023-12-22] MEDS ORDERED: PROPOFOL IV EMULSION 10 MG/ML 20 ML VIAL IV ONE (08:31)
[2023-12-22] MEDS ORDERED: DEXAMETHASONE SOD INJ 4 MG/ML VIAL ONE (08:31)
[2023-12-22] MEDS ORDERED: SUGAMMADEX SODIUM 200 MG/2 ML VIAL IV ONE (08:31)
[2023-12-22] MEDS: LR 15ML/HR IV SCH (08:46)
[2023-12-22] MEDS: LR 60ML/HR IV SCH (08:48)
[2023-12-22] MEDS: ACETAMINOPHEN 500 MG TAB PO SCH (08:48)
[2023-12-22] MEDS: GABAPENTIN 300 MG CAP PO SCH (08:48)
[2023-12-22] MEDS ORDERED: ATROPINE SULFATE 0.1 MG/ML 10ML SYR IV PRN (09:27)
[2023-12-22] MEDS ORDERED: ONDANSETRON INJ 2 MG/ML 2 ML VIAL IV PRN ×2 (09:27→14:18)
[2023-12-22] MEDS ORDERED: ePHEDrine sulfate 50 MG/ML AMP IV PRN (09:27)
[2023-12-22] MEDS ORDERED: fentaNYL citrate PF 100 MCG/2 ML VIAL IV PRN (09:27)
[2023-12-22] MEDS ORDERED: HYDROmorphone INJ 2 MG/ML SYR/VIAL IV PRN (09:27)
[2023-12-22] MEDS ORDERED: PROMETHAZINE HCL 6.25 MG in SODIUM CHLORIDE 0.9% 50 ML IV PRN (09:27)
--- NOTE | 2023-12-22 09:32 | History & Physical Bridge Note ---
Date of Service December 22, 2023 History & Physical Bridge Note I have examined the patient, reviewed the History & Physical and in the interval since the performance of the History & Physical I have noted the following changes of clinical significance: no changes noted
--- NOTE | 2023-12-22 09:33 | History & Physical Report ---
Date of Service December 22, 2023 Assessment & Plan (1) Myelopathy concurrent with and due to spinal stenosis of thoracic region: Plan: Removal of T12 screw, T7-T10 decompression, T7-T12 fusion History of Present Illness Chief Complaint: Back and bilateral leg symptoms Primary Care Provider: Radhames Gama PA-C This is a 73-year-old male that presents with evidence of thoracic myelopathy and is here for surgical intervention. Allergies Allergy/AdvReac Type Severity Reaction Status Date / Time tamsulosin Allergy Intermediate ITCHY RASH Verified 12/22/23 08:25 Sulfa (Sulfonamide AdvReac Mild rash/itching Verified 12/22/23 08:25 Antibiotics) per PCP records Home Medications Medication Instructions Recorded Confirmed Type acetaminophen 500 mg tablet 1,000 mg PO HS 11/24/23 12/22/23 History alfalfa 250 mg tablet 1,200 mg PO HS 11/24/23 12/22/23 History amlodipine 5 mg tablet (Norvasc) 5 mg PO QAM 11/24/23 12/22/23 History aspirin 81 mg capsule 81 mg PO QPM 11/24/23 12/22/23 History atorvastatin 40 mg tablet (Lipitor) 40 mg PO PM 11/24/23 12/22/23 History celecoxib 200 mg capsule (Celebrex) 200 mg PO QAM 11/24/23 12/22/23 History diosmin complex no.1 630 mg tablet 1 tab PO QAM 11/24/23 12/22/23 History (Vasculera) duloxetine 60 mg capsule,delayed 60 mg PO QPM 11/24/23 12/22/23 History release (Cymbalta) furosemide 40 mg tablet (Lasix) 40 mg PO QAM 11/24/23 12/22/23 History gabapentin 400 mg capsule 400 mg PO TID 11/24/23 12/22/23 History (Neurontin) ibuprofen 600 mg tablet 600 mg PO HS 11/24/23 12/22/23 History magnesium oxide 400 mg (241.3 mg 400 mg PO QPM 11/24/23 12/22/23 History magnesium) tablet methylcellulose (with sugar) oral 1 ea PO QAM 11/24/23 12/22/23 History powder packet metoprolol succinate 25 mg 25 mg PO QAM 11/24/23 12/22/23 History tablet,extended release 24 hr (Toprol XL) [id number]-xl-ugtcl 300 mcg-K 60 1 tab PO QAM 11/24/23 12/22/23 History mcg-lycop 600 mcg-lutein 300 mcg tablet ([employer] Complete Senior Men's) nitroglycerin 0.4 mg sublingual 0.4 mg sublingual UD PRN Chest Pain 11/24/23 11/24/23 History tablet omeprazole 40 mg capsule,delayed 40 mg PO QAM 11/24/23 12/22/23 History release oxybutynin chloride 10 mg 10 mg PO QAM 11/24/23 12/22/23 History tablet,extended release 24 hr ropinirole 2 mg tablet,extended 2 mg PO HS 11/24/23 12/22/23 History release 24 hr saw palmetto 320 mg capsule 640 mg PO QAM 11/24/23 12/22/23 History terazosin 10 mg capsule 10 mg PO HS 11/24/23 12/22/23 History tizanidine 4 mg tablet (Zanaflex) 4 mg PO HS PRN Muscle Pain 11/24/23 12/22/23 History Past Med/Surg History Medical History (Updated 12/22/23 @ 09:32 by Tavo Pierce DO) History of blood transfusion during femoral artery repair Subclavian artery stenosis, left Carotid artery stenosis Lumbar stenosis Arthritis Restless leg syndrome CAD (coronary artery disease) s/p 1 RCA stent 2005 Depression Sleep apnea CPAP at night BPH (benign prostatic hyperplasia) GERD (gastroesophageal reflux disease) controlled, stable per pt Hypertension controlled, stable per pt Surgical History Hx of colonoscopy Hx of bilateral cataract extraction (~2021) History of carpal tunnel surgery of left wrist (~2019) History of back surgery (~2016) screws & rods, [facility] History of total right knee replacement (~2015) History of surgery (~08/05/06) right femoral artery rupture repair, [place] Hx of arthroscopy of right knee x2 1984 & 2000 Hx of hand surgery (~1995) multiple, right hand, finger tendon and trigger finger release Hx of arthroscopy of left knee (~1980) Hx of cardiac cath (~08/24/06) x 1 stent[facility], [facility]; 2016: no stent Hx of shoulder surgery (~2007) RT shoulder reconstruction x 2, 2007 & 2007; hardware removal 2009 Hx of shoulder surgery (~2009) right scapular fusion Hx of repair of left rotator cuff (~10/28/20) Social History Smoking Status: Never smoker Second Hand Exposure: No; Do You Dip or Chew Tobacco: No; Tobacco Cessation Education Requested by Patient: No Hx Alcohol Use: Yes Hx Substance Use: No Preferred Language: Turkmen Communication Ability: Effective Senior Government Program Analyst Required: No Beliefs That Will Affect Care: None Current Living Situation: Alone Other Information That Helps Us Care for You: No Feels Safe at Home: Yes Safety Concerns: Feels Safe At This Time Assistive Devices: Cane, CPAP and Glasses Physical Exam Physical Exam: Patient is alert and oriented Heart regular rhythm Lungs clear Results & Data Results & Data Vital Signs (Past 12 Hours) Vital Signs Temp Pulse Resp BP Pulse Ox O2 Del Method 12/22/23 08:35 37.1 C 73 18 132/70 94 Room Air
[2023-12-22] MEDS: ceFAZolin 2000MG 2,000 MG/15 ML SYR IV SCH ×2 (10:13→18:00)
[2023-12-22] MEDS ORDERED: GLYCOPYRROLATE 0.2 MG/ML VIAL ONE (10:39)
[2023-12-22] MEDS: BUPIVACAINE/EPINEPHRINE 0.5% MPF 1:200,000 30 ML VIAL ONE (10:49)
[2023-12-22] MEDS: ceFAZolin 330 MG/ML 1 GM VIAL ONE (10:49)
[2023-12-22] MEDS ORDERED: ePHEDrine sulfate 50 MG/5 ML SYR ONE (12:21)
[2023-12-22] MEDS: FLOSEAL HEMOSTATIC MATRIX 10ML TOP ONE (12:41)
--- NOTE | 2023-12-22 12:44 | Operative Report ---
Post Operative Report Pre & Post Diagnosis Operation Date: 12/22/23 09:35 Pre-Op Diagnosis: Spinal Cord Compression, Thoracic Myelopathy Post-Op Diagnosis: Spinal Cord Compression, Thoracic Myelopathy I identified the patient and participated in the time-out.: Yes Procedure Operation Date: 12/22/23 09:35 Actual Procedures #1 removal of pedicle screw and connector T12. #2 exploration of fusion T11- T12. #3 thoracic decompression with bilateral medial facetectomies T7-T8, T8-T9 and T9-T10. #3 posterior spinal fusion T7-T12. #5 placement posterior ins trumentation T7-T9 with connectors at T12. #6 placement locally harvested morselized autograft posterior gutters. #7 placement infuse collagen sponge, with Koros bone graft in the posterior lateral gutters. Surgeon Tavo Pierce, DO Dental Equipment Technician Becky Winters Estimated Blood Loss 300 Findings See Below The patient is 6 foot 4 weighing over 119 kg with a BMI in excess of 32. The patient's body was did contribute to significant technical difficulty with positioning exposure and the procedure itself adding at least 50% increased operative time. Specimens None Indications This is a 73-year-old male who presents with evidence of thoracic myelopathy and is here for surgical invention. Description of Procedure Patient was met with identified informed consent obtained. Patient was then taken to the operative suite underwent patient placed in a prone position on the Aron table atop the Robe frame. All bony promises well-padded eyes inspected to ensure no external pressure placed upon the. This point the thoracolumbar spine was prepped and draped in a sterile fashion. Sharp dissection with the assistance of Bovie cautery performed down to and exposing the lamina transverse processes of T7-T8 T9-T10-T11 and the instrumentation at T12. I then proceeded move the end And connectors at T12 exploring the fusion mass at T8 1112 noting it to be mature and intact. And then performed a complete laminectomy of T10, T9 T8 partial laminectomy T7 including bilateral medial facetectomies at each level to address severe spinal stenosis. Pedicle screws then placed at T7-T8-T9 bilaterally with assistance of fluoroscopy and a barrel connector connected to the proximal zoran at the T10-T11 region. Appropriate sized rods were then contoured and locked into position bilaterally. The transverse processes of T7 T8-T9-T10 and T11 were then burred to subcortically bone. Infuse collagen sponge combined with Koros and local autograft was placed in the posterior gutters. 15 round SUSANNA drain inserted. The incision was then closed with 1 Vicryl the fascia 2-0 Vicryl subcutaneously and 4 Monocryl for final closure. Steri-Strips sterile dressing placed. Patient waken taken to PACU stable condition. Please note spinal cord monitoring was utilized at the procedure no changes noted. Lastly Becky Winters was present at the entire surgeon while the patient positioning complex course of the surgery and final skin closure. I attest to the content of the Intraoperative Record and any orders documented therein. Any exceptions are noted below.
--- NOTE | 2023-12-22 13:01 | Fluoroscopy Report ---
FL thoracic spine 2V CLINICAL HISTORY: T12 SCREW REMOVAL, T7-T10 DECOMP, T7-T12 FUSION TECHNIQUE: 2 views were obtained with the C-arm in the OR with the above procedure. Total fluoroscopy time was 32.7 seconds. Radiation dose was 14.24 mGy. Comparison: Comparison is made to thoracic spine radiographs 12/06/2023 FINDINGS/IMPRESSION: Intraoperative images were obtained of T12 screw removal, T7-T10 decompression, and T7-T12 fusion. Please correlate with intraoperative fluoroscopy and operative report. ACT 112: Negative or not required by law. Electronically signed by: Adolph Lopez M.D. 12/22/2023 12:59 PM
--- NOTE | 2023-12-22 13:31 | Anesthesiology Progress Note ---
Date of Service December 22, 2023 Anesthesia Post Procedure Vital Signs Vital Signs: Temp Pulse Resp BP Pulse Ox O2 Del Method O2 Flow Rate 12/22/23 13:25 77 17 98/42 L 96 Oxymask 13 12/22/23 13:15 76 18 94/48 L 94 Oxymask 13 12/22/23 13:07 36.2 C L 74 12 86/46 L 90 Nasal Cannula 4 12/22/23 08:35 37.1 C 73 18 132/70 94 Room Air Transfer of Care Handoff Completed per policy Notes Mental Status: alert / awake / arousable Patient Amnestic to Procedure: Yes Nausea / Vomiting: adequately controlled Pain: adequately controlled Airway Patency, RR, SpO2: stable & adequate BP & HR: stable & adequate Hydration State: stable & adequate Anesthetic Complications: no major complications apparent
[2023-12-22] MEDS ORDERED: PROMETHAZINE HCL 12.5 MG in SODIUM CHLORIDE 0.9% 50 ML IV PRN (14:18)
[2023-12-22] MEDS ORDERED: DO NOT ADMINISTER PNEUMOCOCCAL VACCINE PRN (14:18)
[2023-12-22] MEDS ORDERED: NALOXONE HCL 0.4 MG/1 ML VIAL/CARP IV PRN (14:18)
[2023-12-22] MEDS ORDERED: DO NOT ADMINISTER FLU VACCINE PRN (14:18)
[2023-12-22] MEDS ORDERED: LORazepam 0.5 MG in SYRINGE 0.25 ML IV PRN (14:18)
[2023-12-22] MEDS ORDERED: diphenhydrAMINE Capsule 25 MG CAP PO PRN (14:18)
[2023-12-22] MEDS ORDERED: METOCLOPRAMIDE HCL INJ 5 MG/ML 2 ML VIAL IV PRN (14:18)
[2023-12-22] MEDS ORDERED: NITROGLYCERIN SL 0.4 MG/TAB TAB SL PRN (14:18)
[2023-12-22] MEDS ORDERED: ACETAMINOPHEN 1,000 MG/100 ML VIAL IV PRN (14:18)
[2023-12-22] MEDS ORDERED: LORazepam 0.5 MG TAB PO PRN (14:18)
[2023-12-22] MEDS ORDERED: HYDROmorphone INJ 1 MG/ML SYRINGE IV PRN (14:18)
[2023-12-22] MEDS ORDERED: ONDANSETRON 4 MG OD TAB PO PRN (14:18)
[2023-12-22] MEDS ORDERED: bisacodyL 10 MG SUPP PR PRN (14:18)
[2023-12-22] MEDS ORDERED: FAMOTIDINE 20 MG TAB PO PRN (14:18)
[2023-12-22] MEDS ORDERED: hydrOXYzine HCl 25 MG TAB PO PRN (14:18)
[2023-12-22] MEDS ORDERED: HYDROmorphone INJ 0.5 MG/0.5 ML SYR IV PRN (14:18)
[2023-12-22] MEDS ORDERED: SOD PHOSPHATE/SOD BIPHOSPHATE ENEMA 132 ML BTL PR PRN (14:18)
[2023-12-22] MEDS ORDERED: ALUMINUM/MAGNESIUM SUSP 30 ML UDC PO PRN (14:18)
--- NOTE | 2023-12-22 14:37 | Consultation ---
Date of Consultation December 22, 2023 Assessment & Plan (1) S/P spinal surgery: (2) Myelopathy concurrent with and due to spinal stenosis of thoracic region: Post op day# 0 S/P removal of hardware T12, decompression and fusion T7-T12 by Dr Kari ECHAVARRIA#300ml Pain management per ortho Wound management per ortho PT/OT as appropriate DVT prophylaxis per ortho Incentive spirometry Monitor H&H for acute blood loss anemia; pre-op Hgb: 13.9 (3) HTN (hypertension): Stable Continue amlodipine, metoprolol succinate with holding parameters Hold Lasix and reassess tomorrow (4) Dyslipidemia: Chronic Continue atorvastatin (5) CAD (coronary artery disease): CAD S/P RCA stent Resume aspirin as per ortho Continue metoprolol succinate, atorvastatin Follows with [facility] cardiology (6) BPH (benign prostatic hypertrophy): Continue terazosin (7) LOLI on CPAP: Continue CPAP HS (8) Restless leg syndrome: Continue ropinirole, pramipexole DVT Prophylaxis SCDs Disposition per primary service Follows with Radhames Gama PA-C for routine care Pt was seen and care coordinated with Dr Conley. See addendum Supervising Physician Co-Signing Physician Notes Pt was seen and examined by myself, Lucina Conley MD on the day of service. Care was coordinated with Madeline Remy PA-C. 73yo postop after lumbar decompression and fusion. States that he feels great. Was working with nursing to get up into the chair. Continue CPAP qhs postop. Otherwise as above. I spent a total [id number] coordinating, documenting, and providing care for this patient excluding time spent in the performance of separately billed services History of Present Illness Requesting Physician: Dr Pierce Reason for Consultation: Post op medical management Attending Physician: Tavo Pierce, DO History of Present Illness Patient is 73 year old male with PMH HTN, HLD, CAD s/p RCA stent, BPH, LOLI, left subclavian artery stenosis, carotid stenosis seen in medical consultation s/p removal of hardware T12, decompression and fusion T7-T12 today by Dr. Pierce. Postop patient doing well, having minimal back pain. Last BM 3 days ago. Has Steele catheter in placed. Denies fever/chills, N/V/D, MARTIN, dizziness, CP, SOB, palpitations, cough, sore throat, rhinorrhea, abdominal pain, extremity weakness, extremity edema, rashes, urinary symptoms. Allergies Allergy/AdvReac Type Severity Reaction Status Date / Time tamsulosin Allergy Intermediate ITCHY RASH Verified 12/22/23 08:25 Sulfa (Sulfonamide AdvReac Mild rash/itching Verified 12/22/23 08:25 Antibiotics) per PCP records Home Medications Medication Instructions Recorded Confirmed Type acetaminophen 500 mg tablet 1,000 mg PO HS 11/24/23 12/22/23 History alfalfa 250 mg tablet 1,200 mg PO HS 11/24/23 12/22/23 History amlodipine 5 mg tablet (Norvasc) 5 mg PO QAM 11/24/23 12/22/23 History aspirin 81 mg capsule 81 mg PO QPM 11/24/23 12/22/23 History atorvastatin 40 mg tablet (Lipitor) 40 mg PO PM 11/24/23 12/22/23 History celecoxib 200 mg capsule (Celebrex) 200 mg PO QAM 11/24/23 12/22/23 History diosmin complex no.1 630 mg tablet 1 tab PO QAM 11/24/23 12/22/23 History (Vasculera) duloxetine 60 mg capsule,delayed 60 mg PO QPM 11/24/23 12/22/23 History release (Cymbalta) furosemide 40 mg tablet (Lasix) 40 mg PO QAM 11/24/23 12/22/23 History gabapentin 400 mg capsule 400 mg PO TID 11/24/23 12/22/23 History (Neurontin) ibuprofen 600 mg tablet 600 mg PO HS 11/24/23 12/22/23 History magnesium oxide 400 mg (241.3 mg 400 mg PO QPM 11/24/23 12/22/23 History magnesium) tablet methylcellulose (with sugar) oral 1 ea PO QAM 11/24/23 12/22/23 History powder packet metoprolol succinate 25 mg 25 mg PO QAM 11/24/23 12/22/23 History tablet,extended release 24 hr (Toprol XL) rrpohrec-wt-zknav 300 mcg-K 60 1 tab PO QAM 11/24/23 12/22/23 History mcg-lycop 600 mcg-lutein 300 mcg tablet ([employer] Complete Senior Men's) nitroglycerin 0.4 mg sublingual 0.4 mg sublingual UD PRN Chest Pain 11/24/23 12/22/23 History tablet omeprazole 40 mg capsule,delayed 40 mg PO QAM 11/24/23 12/22/23 History release oxybutynin chloride 10 mg 10 mg PO QAM 11/24/23 12/22/23 History tablet,extended release 24 hr ropinirole 2 mg tablet,extended 2 mg PO HS 11/24/23 12/22/23 History release 24 hr saw palmetto 320 mg capsule 640 mg PO QAM 11/24/23 12/22/23 History terazosin 10 mg capsule 10 mg PO HS 11/24/23 12/22/23 History tizanidine 4 mg tablet (Zanaflex) 4 mg PO HS PRN Muscle Pain 11/24/23 12/22/23 History pramipexole 0.5 mg tablet 0.5 mg PO HS 12/22/23 12/22/23 History Patient History Medical History (Updated 12/22/23 @ 15:10 by Madeline Remy PA-C) History of blood transfusion during femoral artery repair Subclavian artery stenosis, left Carotid artery stenosis Lumbar stenosis Arthritis Restless leg syndrome CAD (coronary artery disease) s/p 1 RCA stent 2005 Depression Sleep apnea CPAP at night BPH (benign prostatic hyperplasia) GERD (gastroesophageal reflux disease) controlled, stable per pt Hypertension controlled, stable per pt Surgical History (Updated 12/22/23 @ 15:05 by Madeline Remy PA-C) Hx of colonoscopy Hx of bilateral cataract extraction (~2021) History of carpal tunnel surgery of left wrist (~2019) History of back surgery (~2016) screws & rods, [facility] History of total right knee replacement (~2015) History of surgery (~08/05/06) right femoral artery rupture repair, [place] Hx of arthroscopy of right knee x2 1984 & 2000 Hx of hand surgery (~1995) multiple, right hand, finger tendon and trigger finger release Hx of arthroscopy of left knee (~1980) Hx of cardiac cath (~08/24/06) x 1 Tylor parker [facility], Dr. Cornejo[facility], 1928–1983; 2016: no stent Hx of shoulder surgery (~2007) RT shoulder reconstruction x 2, 2007 & 2006; hardware removal 2009 Hx of shoulder surgery (~2009) right scapular fusion Hx of repair of left rotator cuff (~10/28/20) Social History Smoking Status: Never smoker Second Hand Exposure: No; Do You Dip or Chew Tobacco: No; Tobacco Cessation Education Requested by Patient: No Hx Alcohol Use: Yes Hx Substance Use: No Preferred Language: Mauritian Communication Ability: Effective Facilities Planner Required: No Beliefs That Will Affect Care: None Current Living Situation: Alone Other Information That Helps Us Care for You: No Feels Safe at Home: Yes Safety Concerns: Feels Safe At This Time Assistive Devices: Cane, CPAP and Glasses Review of Systems Review of Systems: All systems reviewed & are unremarkable except as noted in HPI & below Physical Exam Physical Exam: General: no acute distress, obese Head: normocephalic, atraumatic Eyes: conjunctiva non-injected, anicteric ENT: normal inspection external ears, nose, mucous membranes moist Neck: supple, trachea midline Lungs: clear, no respiratory distress, no wheezing/rhonchi/rales CV: RRR, no murmur, no pretibial edema Abd: normal BS, soft, non-tender Back: dressing in place, +SUSANNA drain with serosanguineous drainage Ext: no cyanosis, no calf tenderness; bilateral pedal pushes and pulls intact, sensation to light touch BLE and BUE intact Neuro: A&O x 3, no focal deficits noted, normal affect Skin: warm, dry Results & Data Vital Signs (Past 12 Hours) Vital Signs Temp Pulse Pulse Resp BP Pulse Ox O2 Del Method 12/22/23 14:18 36.7 C 69 16 108/62 94 Nasal Cannula 12/22/23 14:05 74 17 106/52 L 92 Nasal Cannula 12/22/23 13:55 36.4 C L 75 13 111/52 L 98 Oxymask 12/22/23 13:45 76 15 109/52 L 96 Oxymask 12/22/23 13:35 75 16 102/54 L 94 Oxymask 12/22/23 13:30 109/57 L 12/22/23 13:25 77 17 98/42 L 96 Oxymask 12/22/23 13:15 76 18 94/48 L 94 Oxymask 12/22/23 13:07 36.2 C L 74 12 86/46 L 90 Nasal Cannula 12/22/23 08:35 37.1 C 73 18 132/70 94 Room Air O2 Flow Rate 12/22/23 14:18 3 12/22/23 14:05 3 12/22/23 13:55 4 12/22/23 13:45 4 12/22/23 13:35 13 12/22/23 13:30 12/22/23 13:25 13 12/22/23 13:15 13 12/22/23 13:07 4 12/22/23 08:35
[2023-12-22] MEDS: LACTATED RINGER'S 1,000 ML IV SCH (15:18)
--- OUTSIDE RECORDS SUMMARY | 2023-12-22 15:39 | External Medical Summary | Summary of Care ---
Author Name Unknown Organization [facility] Address [address] [place] [address] Phone [phone] Care Team Providers Care Permit Specialist Name Role Phone Radhames Gama PA-C Primary Care Provide r Encounter Details Date Type Department Care Team (Late st Contact Info) Description 12/06/2023 Result Scan Unspecified Department <No scans attached> Allergies Active Allergy Reactions Criticality Noted Date Comments Tamsulosin Hcl Rash 07/14/2010 Sulfa Antibiotics Itching,Rash Low 03/10/2010 documented as of this encounter (statuses as of 12/21/2023) Medications Medication Sig Dispensed Refills Start Date End Date Status CITRUCEL PO POWD 1 tablespoon mixed with 8 oz of water once a day 0 Active ONE-A-DAY 50 PLUS PO TABS 1 tablet by mouth daily 0 Active NITROQUICK 0.4 MG SL SUBL as needed 0 Active ALFALFA 650 MG PO TABS 2 tablets by mouth at bedtime 0 Active ASPIRIN 81 MG PO TABS one by mouth daily 0 Active Pramipexole Dihydrochloride 0.5 MG Oral Tablet Take 1 Tablet by mouth every morning. 0 9 Active Acetaminophen 500 MG Oral Tablet Take 1 Tablet by mouth at bedtime. 30 Tab 0 9 Active Ibuprofen 200 MG Oral Tablet Take 2 Tablets by mouth at bedtime. 50 Tab 1 9 Active Oxybutynin Chloride ER 10 MG Oral Tablet Extended Release 24 Hour (DITROPAN XL) Take 1 Tablet by mouth in the morning. 0 0 Active Vasculera Oral Tablet Take 1 Tab by mouth daily. 0 Active tiZANidine HCl 4 MG Oral Tablet (Zanaflex)Indications:Spa sm of muscle Take 1 Tab by mouth every 6 hours as needed for Muscle spasms. 90 Tab 3 1 Active DULoxetine HCl 60 MG Oral Capsule Delayed Release Particles (Cymbalta) Take 1 Capsule by mouth in the morning. 0 2 Active Gabapentin 400 MG Oral Capsule (Neurontin) Take 1 Capsule by mouth in the morning and 1 Capsule at noon and 1 Capsule before bedtime. 90 Capsule 5 2 Active Magnesium Oxide 400 (240 Mg) MG Oral Tablet Take 1 Tablet by mouth in the morning. 0 2 Active Saw Fallon 160 MG Oral Capsule Take by mouth every morning . 0 Active Atorvastatin Calcium 40 MG Oral Tablet (Lipitor)Indications:Pure hypercholesterolemia TAKE ONE (1) TABLET BY MOUTH EVERY DAY 90 Tablet 3 3 Active Furosemide 40 MG Oral Tablet (Lasix) TAKE ONE (1) TABLET BY MOUTH EVERY DAY 90 Tablet 3 3 Active Triamcinolone Acetonide 0.5 % External Cream (Aristocort)Indications:R jr and nonspecific skin eruption Apply topically to affected area 2 times a day. To affected area. 15 g 5 3 Active Terazosin HCl 10 MG Oral Capsule TAKE ONE (1) CAPSULE BY MOUTH AT BEDTIME 90 Capsule 3 3 Active amLODIPine Besylate 5 MG Oral Tablet (Norvasc) TAKE ONE (1) TABLET BY MOUTH EVERY DAY 90 Tablet 3 3 Active Celecoxib 200 MG Oral Capsule (CeleBREX) TAKE ONE CAPSULE BY MOUTH EVERY DAY FOR PAIN 90 Capsule 0 3 Active Metoprolol Succinate ER 25 MG Oral Tablet Extended Release 24 Hour (toPROL XL)Indications:Coronary atherosclerosis TAKE ONE (1) TABLET BY MOUTH EVERY DAY 90 Tablet 3 4 Active Omeprazole 40 MG Oral Capsule Delayed Release (PriLOSEC) Take 1 Capsule by mouth in the morning. 0 4 Active rOPINIRole HCl 2 MG Oral Tablet (Requip) Take 1 Tablet by mouth at bedtime. 0 4 Active Zoster Vac Recomb Adjuvanted 50 MCG/0.5ML Intramuscular Suspension Reconstituted (Shingrix)Indications:Nee d for vaccination for zoster Inject 0.5 mL into a large muscle now and repeat dose in 60 to 180 days 1 Each 1 4 Active documented as of this encounter (statuses as of 12/21/2023) Active Problems Problem Noted Date Diagnosed Date Irritable bowel syndrome with diarrhea 9 Fatty liver 12/11/2018 Left foot drop 10/21/2018 Lumbosacral radiculopathy at L5 10/21/2018 Restless legs syndrome 08/02/2018 Overview: Uses requip Neuropathy 08/02/2018 Adjustment disorder with depressed mood 08/02/20 18 HTN, goal below 140/90 03/09/2016 Overview: Per HTN Protocol Asymptomatic stenosis of left carotid artery Osteoarthrosis, localized, primary, involving lo wer leg Overview: ICD-10 update of inactive term LOLI on CPAP Overview: ICD-10 update of inactive term Pure hypercholesterolemia Atherosclerosis of [place] co ronary artery of [place] heart without angina pectoris Overview: S/P angioplasty Stent X 1 BPH without obstruction/lower urinary tract symp toms documented as of this encounter (statuses as of 12/21/2023) Resolved Problems Problem Noted Date Diagnosed Date Resolved Date Food insecurity 08/10/2022 01/07/2023 Overview: Per [facility] Protocol Stenosis of left subclavian artery 06/19/2020 08/02/2020 Major depressive disorder 07/27/2017 Overview: ICD-10 update of inactive term Status post total right knee replacement 06/26/2016 08/02/2018 LOLI on CPAP 12/03/2014 08/02/2018 Postsurgical percutaneous tr ansluminal coronary angioplasty status 10/15/2014 08/02/2018 Overview: August 24, 2006 Shoulder joint pain 09/15/2010 08/02/20 18 Shoulder joint pain 05/26/2010 08/02/20 18 revision of right AC joint r econstruction 04/26/08 06/05/2008 08/02/2018 Sprain, acromioclavicular 07/25/2007 INFORMATION 08/02/2018 Overview: high blood pressure Essential hypertension 03/12 Overview: Per HTN Protocol Hyperestrogenism 08/02/2018 Anemia 08/02/2018 Overview: ICD-10 update of inactive term Hypocalcemia 08/02/2018 documented as of this encounter (statuses as of 12/21/2023) Immunizations Name Administration Dates Next Due COVID-19 mRNA, LNP-s, No Pre serve, 2-Dose Series ([employer]) 07/26/2021,01/04/2021,12/14/2020 Pneumococcal Conjugate Vacc, 13 Valent (Prevnar) 06/03/2016 Pneumococcal Polysaccharide PPV23 (Pneumovax) 07/27/2017,05/01/2011 Seasonal Influenza, PF, 6 M & above, IM , (FluLaval or Fluzone) 06/17/2020,06/07/2019,08/02/2018,07/27 Seasonal Influenza, Quadriva lent Hd (Fluzone Hd) 06/16/2023,07/08/2022,07/16/2021 Seasonal Influenza, Quadriva lent, No Preserve, IM 08/27/2016,10/16/2015 Seasonal Influenza, Split, I IV3, With Preserve, Inj 07/20/2014,07/31/2013,08/29/2012,07/27,07/22/2010,09/04/2009,07/27/2007 TD, Preservative Free 08/02/2020 TDAP (age 11 and older)(Adacel) 05/01/2011 Varicella Zoster Vaccine (Adult) 11/29/2015 documented as of this encounter Social History Tobacco Use Types Packs/Day Years Used Date Smoking Tobacco: Former Cigarettes 0.5 Pipe Smokeless Tobacco: Never Alcohol Use Standard Drinks/Week Comments Yes 0 (1 standard drink = 0.6 oz pur e alcohol) rare wine PHQ-2 Answer Date Recorded PHQ Adult Total Score 2 11/24/2023 Hunger Vital Sign Answer Date Recorded Within the past 12 months, y ou worried that your food would run out before you got the money to buy more. Never true 12/08/19 23 Within the past 12 months, t he food you bought just didn't last and you didn't have money to get more. Never true 12/07/2022 Sex and Gender Information Value Date Recorded Sex Assigned at Male 12/13/2019 11:25 AM EDT Gender Identity Male 12/13/2019 11:25 AM EDT Sexual Orientation Straight 12/13/2019 11 :25 AM EDT Job Start Date Occupation Industry Not on file Not on file Not on file documented as of this encounter Plan of Treatment Upcoming Encounters Date Type Department Care Team (Late st Contact Info) Description 01/04/2024 2:00 PM EDT Office Visit [facility] [place] [address] [place] [id number] Radhames Gama PA-C [address] [place] [id number] Scheduled Procedures Name Priority Associated Diagnoses Date/Ti me COLONOSCOPY FLEXIBLE PROXIMA L DIAGNOSTIC Recall Encounter for screening colonoscopy Health Maintenance Due Date Last Done Comments Zoster Vaccines (2 of 3) 01/24/2016 11/29/2015 COVID-19 Vaccine ( season) 2023 07/26/2021, 01/04/2021, 12/14/2020 Depression Screening 11/24/2024 11/24/2023, 10/16/2015 (Refused) Albumin/Creatinine Ratio 12/05/2024 12/05/2021 GFR 12/05/2024 12/06/2023, 11/25, 06/01/2023, Additional history exists DTaP,Tdap,and Td Vaccines (3 - Td or Tdap) 08/02/2030 08/02/2020, 05/01/2011 Pneumococcal Vaccine: 65+ Years Completed 07/27/2017, 06/03/2016, 05/01/2011 Colonoscopy Discontinued 02/15/2023, 01/25, 02/09/2018, Additional history exists Colorectal Cancer Screening Discontinued Influenza Vaccine (FLU shot) Completed 06/16/2023, 07/08/2022, 07/16/2021, Additional history exists Cologuard Discontinued Fecal Occult Blood Test Discontinued GARDASIL-HPV IMMUNIZATION SERIES Aged Out No longer eligible based on patient's age to complete this topic Hepatitis B Aged Out No longer eligi ble based on patient's age to complete this topic MENINGOCOCCAL (MENACTRA/MENVEO) Aged Out No longer eligible based on patient's age to complete this topic Sigmoidoscopy Discontinued documented as of this encounter Medical Devices Implanted Type Area Loss Prevention Specialist Device Identifier Shelf Expiration Date Model / Serial / Lot [id number] - [id number] Implanted:Qty : 1 on 09/09/[address] [facility] [place] [id number] / [id number] / Implant On The Fly - [id number] Implanted:Qty : 1 on 04/26/2008 at [facility] Right: Shoulder [employer]OSKELET[employer]ANSPLANT FND [id number] / [id number] / Washer 13.0mm 219.99 - [id number] Implanted:Qty : 1 on 04/26/[address] [facility] [place]: Shoulder SYNTHES 219.99 / / Screw Canc 6.5mm 216.040 - [id number] Implanted:Qty : 1 on 04/26/2008 at [facility] Right: Shoulder SYNTHES 216.040 / / Plate Recon Cvd 3.5mm 245.30 - [id number] Implanted:Qty : 1 on 05/13/[address] [facility] [place]: Shoulder SYNTHES 245.30 / / Acromed [id number] Is Double - [id number] Implanted:Qty : 4 on 05/13/2010 at [facility] Right: Shoulder JNJ : [employer] [id number] / / documented as of this encounter Procedures Procedure Name Priority Date/Time Associated Diagnosis Comments EKG SCANNED RESULT 12/06/2023 documented in this encounter Results * EKG SCANNED RESULT (12/06/2023) 12/06/2023 No Physician Data Unknown EKG documented in this encounter Advance Directives Latest Code Status on File Code Status Date Activated Date Inactivated Comments Full Code 10/31/2008 6:31 PM 11/01/2008 1:12 AM Code Status History Code Status Date Activated Date Inactivated Comments Full Code 04/26/2008 1:38 PM 04/26/2008 9:54 PM Full Code 09/09/2007 11:37 AM 09/09/2007 11:33 PM Care Teams Permit Specialist Relationship Specialty Start Date End Date Radhames Gama PA-C [address] [place] [id number] PCP - General Physician Credit Risk Review Officer 08/10/23 documented as of this encounter
--- OUTSIDE RECORDS SUMMARY | 2023-12-22 15:40 | External Medical Summary | Summary of Care ---
Author Name Unknown Organization [facility] Address [address] [facility] [place] [address] Phone [phone] Care Team Providers Care Content Management Consultant Name Role Phone Radhames Gama PA-C Primary Care Provide r Reason for Visit * Reason Onset Date Comments pre-op exam 12/08/2023 Encounter Details Date Type Department Care Team (Late st Contact Info) Description [facility] [place] [address] Kp Butt MD [address] [facility] [place] [address] pre-op exam Allergies Active Allergy Reactions Criticality Noted Date Comments Tamsulosin Hcl Rash 07/14/2010 Sulfa Antibiotics Itching,Rash Low 03/10/2010 documented as of this encounter (statuses as of 12/08/2023) Medications Medication Sig Dispensed Refills Start Date [...] in the morning. 0 2 Active Saw [place] 160 MG Oral Capsule Take by mouth [...] as of this encounter (statuses as of 12/08/2023) Active Problems Problem Noted Date Diagnosed Date [...] of inactive term Pure hypercholesterolemia Atherosclerosis of [place] co ronary artery of [place] heart without angina pectoris Overview: S/P angioplasty Stent X 1 BPH without obstruction/lower urinary tract symp toms documented as of this encounter (statuses as of 12/08/2023) Resolved Problems Problem Noted Date Diagnosed Date [...] as of this encounter (statuses as of 12/08/2023) Immunizations Name Administration Dates Next Due COVID-19 mRNA, LNP-s, No Pre serve, 2-Dose Series (SCVNGR) 07/26/2021,01/04/2021,12/14/2020 Pneumococcal Conjugate Vacc, 13 Valent (Prevnar) [...] on file documented as of this encounter Miscellaneous Notes * Telephone Encounter - Jolly Hill LPN - 12/08/2023 5:20 PM EDT Note completed and faxed. * Telephone Encounter - Jolly Hill LPN - 12/08/2023 4:20 PM EDT Pt was seen on 11/24 for a pre op but had pre op testing done at [facility]. We just received the results from that and results are in Dr. Pavithra yip for review and then pre op note can be addended and if pt is cleared can be documented in note and will need faxed. Results will need scanned into chart. Pt is having surgery on 12/22/23 documented in this encounter Plan of Treatment Upcoming Encounters Date Type Department Care Team (Late st Contact Info) Description 12/15/2023 2:20 PM EDT [facility] Visit [facility], [place] [address] [facility] [place] [address] Radhames Gama PA-C [address] [facility] [place] [address] Scheduled Procedures Name Priority Associated Diagnoses Date/Ti me COLONOSCOPY FLEXIBLE PROXIMA L DIAGNOSTIC Recall Encounter for screening colonoscopy Health Maintenance Due Date Last Done Comments Zoster Vaccines (2 of 3) 01/24/2016 11/29/2015 COVID-19 Vaccine (4 - 2022- season) 2023 07/26/2021, 01/04/2021, 12/14/2020 GFR 06/01/2024 06/01/2023, 02/2023, 12/05/2021, Additional history exists Depression Screening 11/24/2024 11/24/2023, 10/16/2015 (Refused) Albumin/Creatinine Ratio 12/05/2024 12/05/2021 DTaP,Tdap,and Td Vaccines (3 - Td or [...] this encounter Medical Devices Implanted Type Area Kiln Cleaner Device Identifier Shelf Expiration Date Model / Serial / Lot [id number] - [id number] Implanted:Qty : 1 on 09/09/2007 at [place] [facility] [place] Right: Shoulder [id number] / [id number] / Implant On The Fly - [id number] Implanted:Qty : 1 on 04/26/2008 at [place] [facility] [place] Right: Shoulder MUSCULOSKELETAL TRANSPLANT FND [id number] / [id number] / Washer 13.0mm 219.99 - [id number] Implanted:Qty : 1 on 04/26/2008 at [place] [facility] [place] Right: Shoulder SYNTHES 219.99 / / Screw Canc 6.5mm 216.040 - [id number] Implanted:Qty : 1 on 04/26/2008 at [place] [facility] [place] Right: Shoulder SYNTHES 216.040 / / Plate Recon Cvd 3.5mm 245.30 - [id number] Implanted:Qty : 1 on 05/13/2010 at [place] [facility] [place] Right: Shoulder SYNTHES 245.30 / / Acromed [id number] Is Double - [id number] Implanted:Qty : 4 on 05/13/2010 at [place] [facility] [place] Right: Shoulder JNJ : [employer] [id number] / / documented as of this encounter Advance Directives Latest Code Status on File Code Status Date Activated Date Inactivated Comments Full Code 10/31/2008 6:31 PM 11/01/2008 1:12 AM Code Status History Code Status Date Activated Date Inactivated Comments Full Code 04/26/2008 1:38 PM 04/26/2008 9:54 PM Full Code 09/09/2007 11:37 AM 09/09/2007 11:33 PM Care Teams Content Management Consultant Relationship Specialty Start Date End Date Radhames Gama PA-C [address] [facility] [address] [place] [phone] PCP - General Physician Funeral Home Attendant 08/10/23 documented as of this encounter
--- OUTSIDE RECORDS SUMMARY | 2023-12-22 15:40 | External Medical Summary | Summary of Care ---
Author Name Unknown Organization [facility] Address [address] [facility] [place] [address] Phone [phone] Care Team Providers Care Principal Clerk Name Role Phone Radhames Gama PA-C Primary Care Provide r Reason for Visit * Reason Comments pre-op exam Removal of T12 screw , T7 to T10 decompression, T7 to T12 Fusion Encounter Details Date Type Department Care Team (Latest Contact Info) Description 11/24/2023 2:20 PM EST [facility] [place] [address] Kp Butt MD [address] [facility] [place] [id number] Risk and functional assessment*; Need for vaccination for zoster; Atherosclerosis of [place] coronary artery of [place] heart without angina pectoris; Pre-operative cardiovascular examination Allergies Active Allergy Reactions Criticality Noted Date [...] Active tiZANidine HCl 4 MG Oral Tablet (Zanaflex)Indications:Sp asm of muscle Take 1 Tab by mouth [...] in the morning. 0 2 Active Saw [place] 160 MG Oral Capsule Take by mouth every morning . 0 Active Atorvastatin Calcium 40 MG Oral Tablet (Lipitor)Indications:Pur e hypercholesterolemia TAKE ONE (1) TABLET BY MOUTH EVERY DAY 90 Tablet 3 3 Active Furosemide 40 MG Oral Tablet (Lasix) TAKE ONE (1) TABLET BY MOUTH EVERY DAY 90 Tablet 3 3 Active Triamcinolone Acetonide 0.5 % External Cream (Aristocort)Indications: Rash and nonspecific skin eruption Apply topically to [...] Recomb Adjuvanted 50 MCG/0.5ML Intramuscular Suspension Reconstituted (Shingrix)Indications:Ne ed for vaccination for zoster Inject 0.5 mL into a large muscle now and repeat dose in 60 to 180 days 1 Each 1 4 Active rOPINIRole (REQUIP) 0.25 MG Tablet Take 2 Tablets by mouth every night at bedtime. 0 9 11/24/19 24 Discontin ued(Medic ation/Dos e Changed) omeprazole (PRILOSEC) 20 MG CPDR Take 1 Capsule by mouth in the morning. 0 9 11/24/19 24 Discontin ued(Medic ation/Dos e Changed) Gabapentin 100 MG Oral Capsule (Neurontin) Take 1 Capsule by mouth in the morning and 1 Capsule before bedtime. 0 2 11/24/19 24 Discontin ued(Medic ation List Clean Up) Finasteride 5 MG Oral Tablet (Proscar)Indications:BPH without obstruction/lower urinary tract symptoms Take by mouth 1 Tablet in the morning. 30 Tablet 5 2 11/24/19 24 Discontin ued(Medic ation List Clean Up) Zoster Vac Recomb Adjuvanted 50 MCG/0.5ML Intramuscular Suspension Reconstituted (Shingrix)Indications:Ne ed for vaccination for zoster Inject 0.5 mL into a large muscle now and repeat dose in 60 to 180 days 1 Each 1 3 11/24/19 24 Discontin ued(Refil l) documented as of this encounter (statuses as [...] of inactive term Pure hypercholesterolemia Atherosclerosis of [place] co ronary artery of [place] heart without angina pectoris Overview: S/P angioplasty [...] mRNA, LNP-s, No Pre serve, 2-Dose Series (Pfizer) 07/26/2021,01/04/2021,12/14/2020 Pneumococcal Conjugate Vacc, 13 Valent (Prevnar) [...] on file documented as of this encounter Last Filed Vital Signs Vital Sign Reading Time Taken Comments Blood Pressure 142/64 11/24/2023 2:23 PM EST Pulse 65 11/24/2023 2:23 PM EST Temperature 36.1 C (96.9 F) 11/24/2023 2:23 PM ES T Respiratory Rate 16 11/24/2023 2:23 PM EST Oxygen Saturation 96% 11/24/2023 2:23 PM EST Inhaled Oxygen Concentration - - Weight 120.3 kg (265 lb 3.2 oz) 11/24/2023 2:23 PM EST Height 182.9 cm (6') 11/24/2023 2:23 PM EST Body Mass Index 35.97 11/24/2023 2:23 PM EST documented in this encounter Patient Instructions * Patient Instructions* Jolly Hill LPN - 11/24/2023 2:14 PM EST Patient Instructions - Fall Prevention (This education is for all patients over 65 regardless of symptoms) Remember to take your current medications as prescribed. In order to prevent falls, you are encouraged to: Exercise Utilize assistive/adaptive devices Avoid multifocal lenses when walking Avoid hazards in home Maintain a regular toileting schedule Any questions please contact our office. Preventing Falls in the Home (This education is for all patients over 65 regardless of symptoms) As you get older, falls are more likely. Thats because your reaction time slows. Your muscles and joints may also get stiffer, making them less flexible. Illness, medications, and vision changes can also affect your balance. A fall could leave you unable to live on your own. To make your home safer, follow these tips: Floors Put nonskid pads under area rugs Remove throw rugs Replace worn floor coverings Tack carpets firmly to each step on carpeted stairs. Put nonskid strips on the edges of uncarpeted stairs Keep floors and stairs free of clutter and cords Arrange furniture so there are clear pathways Clean up any spills right away Bathrooms Install grab bars in the tub or shower Apply nonskid strips or put a nonskid rubber mat in the tub or shower Sit on a bath chair to bathe Use bathmats with nonskid backing Lighting Keep a flashlight in each room Put a nightlight along the pathway between the bedroom and the bathroom Yasmin Patient Education Copyright 2008 - 2010 Yasmin except where otherwise noted Preventing Falls: Exercises to Improve Balance, Flexibility, Strength, and Staying Power (This education is for all patients over 65 regardless of symptoms) Certain types of exercises may help make you less likely to fall. Try the ones below. Or do other exercises that your healthcare provider suggests. Depending on your health, you may need to start slowly. Dont let that stop you. Even small amounts of exercise can help you. Be sure to talk to yourhealthcare provider before starting any exercise program. Improve Balance Many types of exercise can help improve balance. Dequan chi and yoga are good examples. Heres another one to try. You can do it anytime and almost anywhere. Stand next to a counter or solid support. Push yourself up onto your tiptoes. Hold for 5 seconds. If you start to lose your balance, hold on to the counter. Rest and repeat 5 times. Work up to holding for 20 to 30 seconds, if you can. Increase Flexibility Being more flexible makes it easier for you to move around safely. Try exercises like the seated hamstring stretch. Sit in a chair and put one foot on a stool. Straighten your leg and reach with both hands down either side of your leg. Reach as far down your leg as you can. Hold for about 20 seconds. Go back to the starting position. Then repeat 5 times. Switch legs. Build Strength Resistance exercises help build strength. You can do them without equipment. Or you can use weights, elastic bands, or special machines. One such exercise is called the biceps curl. You can hold a 1 pound weight or even a can of soup. Do this exercise at least 3 times a week. Strive for everyday. Sit up straight in a chair. Keep your elbow close to your body and your wrist straight. Bend your arm, moving your hand up to your shoulder. Then slowly lower your arm. Repeat 5 times. Switch to the other arm. Build Your Staying Power Aerobic exercises make your heart and lungs stronger so you can keep moving longer. Walking and swimming are two of the best types of exercises you can do. Using a stationary bike is great, too. Find an aerobic exercise that you enjoy. Start slowly and build up. Even 5 minutes is helpful. Aimfor a goal of 30 minutes, at least 3 times a week. You dont have to do 30 minutes in one session. Break it up and walk a little throughout the day. More Helpful Tips Start easy. Slowly work up to doing more. Talk with your healthcare provider about the best exercises for you. Call senior centers or health clubs about exercise programs. If needed, have a family member watch you walk every so often to check your stability. Exercise with a friend. Choose an activity you both enjoy. Try exercises that you can do anytime, anywhere. Here are two examples. Have someone with you when you first try these: Practice walking by placing one foot right in front of the other. Stand up and sit down 10 times. Repeat this throughout the day. Michelle[employer]Bueno Patient Education Copyright 2008 - 2010 Michelle[employer]eno except where otherwise noted. Preventing Falls: Moving Safely Using a Cane or Walker (This education is for all patients over 65 regardless of symptoms) Keep the cane away from your feet so you dont trip. A walking aid, such as a cane or walker, can help you stay more independent and avoid falls. Remember to keep your walking aid within easy reach when youre in a chair or in bed. And learn how to use it safely so you dont injure yourself. Using a Cane If you have a stronger side, hold the cane on that side. Get your balance. Move the cane and your weaker leg forward. Support your weight on both the cane and your weaker side. Step with your stronger leg. Start again from step 1. If youre using a folding walker, be sure you know how to lock it open. Check that its locked open before each use. Using a Walker Roll the walker (or lift it, if youre using one without wheels) forward about 12 inches. Step forward with your weaker leg first. Use the walker to help keep your balance. Bring your other foot forward to the center of the walker. Start again from step 1. Helpful Tips Check with your healthcare provider about the right walking aid to use. Ask about a walker with a seat attached. Check the tips of your cane or walker to make sure they have nonskid covers. Move slowly from room to room. Dont trevizo. Sit down to get dressed. Use a axel pack or backpack to keep your hands free. Get help for jobs that mean climbing, even on a stepstool. Yasmin Patient Education Copyright 2008 - 2010 Yasmin except where otherwise noted. Treating Urinary Incontinence in Men (This education is for all patients over 65 regardless of symptoms) You can't always control the release of urine. You may leak urine. Or you may not be able to hold your urine until you can get to a bathroom. This is called urinary incontinence. The problem can be managed. Talk to your doctor about your treatment options. Taking Medications Prescription medications may help you. They may: Help the sphincter to work better. (This is the muscle that closes to keep urine from leaking out of the bladder.) Help stop the bladder from jerrell too often to push urine out. Help the bladder muscles contract with more force. Help relax the sphincter muscle and allow urine to flow more freely. Making Changes to Your Routine Certain changes in your daily routine may help. These include: Avoiding caffeine and alcohol. Using timed voiding. This is following a schedule for drinking fluids and urinating. Doing Kegel exercises daily. These exercises involve tightening the muscles in your sphincter and around your bladder to help strengthen them. Your doctor can explain how to do them. Using a Catheter A catheter is a narrow tube that is inserted through the urethra into the bladder. It drains urine.A condom catheter covers the penis. It channels urine into a collection bag. It is worn most of thetime. Intermittent catheterization means inserting a catheter to drain the bladder, then removing it. This is done on a regular schedule. Having Surgery If other options don't work, surgery may be recommended. If surgery is an option, your healthcare provider can discuss it with you and explain its risks and benefits. Healing After Prostate Surgery Surgery on the prostate gland can cause incontinence. Most often, the incontinence is only for a short time. It clears up when healing is complete. Very rarely, prostate surgery can result in permanent incontinence. documented in this encounter Progress Notes * Courtney Garay MD - 11/24/2023 2:51 PM EST . * Jolly Hill LPN - 11/24/2023 2:14 PM EST Fall Risk Plan of Care Documentation: - Current medications reconciled Patient encouraged to: - Exercise - Provide education materials for Core strengthening - Utilize assistive/adaptive devices - Provide education materials - Avoid multifocal lenses when walking - Avoid hazards in home - Provide education materials - Maintain a regular toileting schedule Jolly sparrow LPN 11/24/2023 documented in this encounter Nursing Notes * Jolly Hill LPN - 11/24/2023 2:08 PM EST Chief Complaint Patient presents with pre-op exam Removal of T12 screw, T7 to T10 decompression, T7 to T12 Fusion Pt is scheduled for surgery on 12/22/[address] Villar at [facility]. Pt has pre admission testing scheduled for 12/06/23 at [facility] for clearance. Contacted [facility] to clarify and they stated they like this testing done there. Fax number given to pt to have them fax results to us when complete. Rx pended for Shingrix documented in this encounter Plan of Treatment Upcoming Encounters Date Type Department Care Team (Late st Contact Info) Description 12/15/2023 2:20 PM EDT [facility] [place] [address] [facility] [place] [address] Radhames Gama PA-C [address] [facility] [place] [address] Scheduled Orders Name Type Priority Associated Diagnoses Orde r Schedule EKG EKG Routine Pre-operative cardiovascular examination Expected: 11/24/2023 (Approximate), Expires: 12/22/2024 Scheduled Procedures Name Priority Associated Diagnoses Date/Ti me COLONOSCOPY FLEXIBLE PROXIMA L DIAGNOSTIC Recall Encounter for screening colonoscopy Health Maintenance Due Date Last Done Comments Zoster Vaccines (2 of 3) 01/24/2016 11/29/2015 COVID-19 Vaccine ( season) 2023 07/26/2021, 01/04/2021, 12/14/2020 GFR 06/01/2024 [...] this encounter Medical Devices Implanted Type Area Judge'S Clerk Device Identifier Shelf Expiration Date Model / Serial / Lot [id number] - [id number] Implanted:Qty : 1 on 09[place]09[place] [facility] [place] [id number] / [id number] / Implant On The Fly - [id number] Implanted:Qty : 1 on 04/26/2008 [place] [facility] [place]: Shoulder MUSCULOSKELETAL TRANSPLANT FND [id number] / [id number] / Washer 13.0mm 219.99 - [id number] Implanted:Qty : 1 on 04/26/2008 [place] [facility] [place]: Shoulder SYNTHES 219.99 / / Screw Canc 6.5mm 216.040 - [id number] Implanted:Qty : 1 on 04/26/2008 [place] [facility] [place] Right: Shoulder SYNTHES 216.040 / / Plate Recon Cvd 3.5mm 245.30 - [id number] Implanted:Qty : 1 on 05/13/2010 [place] [facility] [place]: Shoulder SYNTHES 245.30 / / Acromed [id number] Is Double - [id number] Implanted:Qty : 4 on 05/13/2010 [place] [facility] [place]: Shoulder JNJ : [employer] [id number] / / documented as of this encounter Visit Diagnoses Diagnosis Risk and functional assessment- Primary Screening for unspecified condition Need for vaccination for zoster Need for prophylactic vaccination and inoculation against other viral diseases Atherosclerosis of [place] coronary artery of [place] heart without angina pectoris Pre-operative cardiovascular examination documented in this encounter Advance Directives Latest Code Status on File Code Status Date Activated Date Inactivated Comments Full Code 10/31/2008 6:31 PM 11/01/2008 1:12 AM Code Status History Code Status Date Activated Date Inactivated Comments Full Code 04/26/2008 1:38 PM 04/26/2008 9:54 PM Full Code 09/09/2007 11:37 AM 09/09/2007 11:33 PM Care Teams Principal Clerk Relationship Specialty Start Date End Date Radhames Gama PA-C [address] [facility] [place] [phone] PCP - General Physician Linux Unix Administrator 08/10/23 documented as of this encounter
--- OUTSIDE RECORDS SUMMARY | 2023-12-22 15:40 | External Medical Summary | Summary of Care ---
Author Name Unknown Organization [facility] Address [address] [facility] [place] [address] Phone [phone] Care Team Providers Care Commercial Plumber Name Role Phone Radhamse Gama PA-C Primary Care Provide r Encounter Details Date Type Department Care Team (Late st Contact Info) Description 12/17/2023 Orders Only Family Practice, [place] [address] [facility] [place] [address] Radhames Gama PA-C [address] [place] [address] Allergies Active Allergy Reactions Criticality Noted Date Comments Tamsulosin Hcl Rash 07/14/2010 Sulfa Antibiotics Itching,Rash Low 03/10/2010 documented as of this encounter (statuses as of 12/17/2023) Medications Medication Sig Dispensed Refills Start Date [...] in the morning. 0 2 Active Saw [place] 160 MG Oral Capsule Take by mouth [...] as of this encounter (statuses as of 12/17/2023) Active Problems Problem Noted Date Diagnosed Date [...] of inactive term Pure hypercholesterolemia Atherosclerosis of [place] ronary artery of [place] heart without angina pectoris Overview: S/P angioplasty Stent X 1 BPH without obstruction/lower urinary tract symp toms documented as of this encounter (statuses as of 12/17/2023) Resolved Problems Problem Noted Date Diagnosed Date [...] as of this encounter (statuses as of 12/17/2023) Immunizations Name Administration Dates Next Due COVID-19 [...] Description 01/04/2024 2:00 PM EDT Office Visit [facility], [place] [address] [facility] [place] [phone] Radhames Gama PA-C [address] [facility] [place] [phone] Scheduled Procedures Name Priority Associated Diagnoses Date/Ti me COLONOSCOPY FLEXIBLE PROXIMA L DIAGNOSTIC Recall Encounter for screening colonoscopy Health Maintenance Due Date Last Done Comments Zoster Vaccines (2 of 3) 01/24/2016 11/29/2015 COVID-19 Vaccine ( season) 2023 07/26/2021, 01/04/2021, 12/14/2020 Depression Screening 11/24/2024 11/24/2023, 10/16/2015 (Refused) Albumin/Creatinine Ratio 12/05/2024 12/05/2021 GFR 12/05/2024 12/06/2023, 09/01/2023, 11/30/2022, Additional history exists DTaP,Tdap,and Td Vaccines (3 [...] this encounter Medical Devices Implanted Type Area Stock Feeder Device Identifier Shelf Expiration Date Model / Serial / Lot [id number] - [id number] Implanted:Qty : 1 on 09/09/2007 at [facility] [place] Right: Shoulder [id number] / [id number] 005P / Implant On The Fly - [id number] Implanted:Qty : 1 on 04/26/2008 at [facility] Right: Shoulder MUSCULOSKELETAL TRANSPLANT FND [id number] / [id number] 083P / Washer 13.0mm 219.99 - [id number] Implanted:Qty : 1 on 04/26/2008 at [facility] Right: Shoulder SYNTHES 219.99 / / Screw Canc 6.5mm 216.040 - [id number] Implanted:Qty : 1 on 04/26/2008 at [facility] Right: Shoulder SYNTHES 216.040 / / Plate Recon Cvd 3.5mm 245.30 - [id number] Implanted:Qty : 1 on 05/13/2010 at [place] [facility] Right: Shoulder SYNTHES 245.30 / / Acromed [id number] Is Double - [id number] Implanted:Qty : 4 on 05/13/2010 at [place] [facility] Right: Shoulder JNJ : [employer] [id number] / / documented as of this encounter Procedures Procedure Name Priority Date/Time Associated Diagnosis Comments CHEMISTRY-OUTSIDE Routine 12/06/2023 documented in this encounter Results * CHEMISTRY-OUTSIDE (12/06/2023) Not all results display below - see scan for full detail OUTSIDE LAB (SEE SCANNED REPORT) Comment:SEE SCAN - CMP CREATININE-OUTSID E LAB 0.65 0.6 - 1.4 MG/DL OUTSIDE LAB (SEE SCANNED REPORT) EGFR-OUTSIDE LAB 95.2 ML/MIN OUT SIDE LAB (SEE SCANNED REPORT) POTASSIUM-OUTSIDE LAB 4.6 3.5 - 5.1 MMOL/L OUTSIDE LAB (SEE SCANNED REPORT) GLUCOSE-OUTSIDE LAB 96 70 - 99 MG/DL OUTSIDE LAB (SEE SCANNED REPORT) HOURS FASTING OUTSID E LAB (SEE SCANNED REPORT) TRIGLYCERIDES-OUT SIDE LAB OUTSIDE LAB (SEE SCANNED REPORT) CHOLESTEROL-OUTSI DE LAB OUTSIDE LAB (SEE SCANNED REPORT) HDL-OUTSIDE LAB OUTS VIRGILIO LAB (SEE SCANNED REPORT) CHOL/HDL RATIO-OUTSIDE LAB OUTSIDE LA B (SEE SCANNED REPORT) LDL (CALCULATED)-OUTS VIRGILIO LAB OUTSIDE LAB (SEE SCANNED REPORT) LDL (DIRECT MEASURE)-OUTSIDE LAB OUTSIDE LAB (SEE SCANNED REPORT) HEMOGLOBIN, Q0T-HMEHVOX LAB OUTSIDE LAB (SEE SCANNED REPORT) PHOSPHORUS-OUTSID E LAB OUTSIDE LAB (SEE SCANNED REPORT) PTH-OUTSIDE LAB OUTS VIRGILIO LAB (SEE SCANNED REPORT) MICROALBUMIN RATIO-OUTSIDE LAB OUTSIDE LA B (SEE SCANNED REPORT) PROTEIN, UA-OUTSIDE LAB OUTSIDE LAB (SEE SCANNED REPORT) HGB OUTSIDE LA B (SEE SCANNED REPORT) 12/06/2023 Viviana Narayanan PA-C LABORATORY OUTSIDE LAB (SEE SCANNED REPORT) documented in this encounter Advance Directives Latest Code Status on File Code Status Date Activated Date Inactivated Comments Full Code 10/31/2008 6:31 PM 11/01/2008 1:12 AM Code Status History Code Status Date Activated Date Inactivated Comments Full Code 04/26/2008 1:38 PM 04/26/2008 9:54 PM Full Code 09/09/2007 11:37 AM 09/09/2007 11:33 PM Care Teams Commercial Plumber Relationship Specialty Start Date End Date Radhames Gama PA-C [address] [facility] [place] [phone] PCP - General Physician Kiln Fireman 08/10/23 documented as of this encounter
--- OUTSIDE RECORDS SUMMARY | 2023-12-22 15:40 | External Medical Summary | Summary of Care ---
Author Name Unknown Organization [facility] Address [address] [facility] [place] [address] Phone [phone] Care Team Providers Care Joy Loader Name Role Phone Radhames Gama PA-C Primary Care Provide r Encounter Details Date Type Department Care Team (Late st Contact Info) Description 12/21/2023 Orders Only Family Practice, [place] [address] [facility] [place] [phone] Radhames Gama PA-C [address] [facility] [address] [place] [address] Allergies Active Allergy Reactions Criticality Noted Date [...] in the morning. 0 2 Active Saw [place] 160 MG Oral Capsule Take by mouth [...] of inactive term Pure hypercholesterolemia Atherosclerosis of [place] co ronary artery of [place] heart without angina pectoris Overview: S/P angioplasty [...] Description 01/04/2024 2:00 PM EDT Office Visit [facility], [place] [address] [facility] [place] [address] Radhames Gama PA-C [address] [facility] [place] [address] Scheduled Procedures Name Priority Associated Diagnoses Date/Ti [...] this encounter Medical Devices Implanted Type Area Commercial Mortgage Broker Device Identifier Shelf Expiration Date Model / Serial / Lot [id number] - [id number] Implanted:Qty : 1 on 09/09/2007 at [place] [facility] [place] Right: Shoulder [id number] / [id number] 005P / Implant On The Fly - [id number] Implanted:Qty : 1 on 04/26/2008 at [facility] Right: Shoulder MUSCULOSKELETAL TRANSPLANT FND [id number] / [id number] 083P / Washer 13.0mm 219.99 - [id number] Implanted:Qty : 1 on 04/26/2008 at [facility] Right: Shoulder SYNTHES 219.99 / / Screw Canc 6.5mm 216.040 - [id number] Implanted:Qty : 1 on 04/26/2008 at [facility] Right: Shoulder SYNTHES 216.040 / / Plate Recon Cvd 3.5mm 245.30 - [id number] Implanted:Qty : 1 on 05/13/2010 at [facility] Right: Shoulder SYNTHES 245.30 / / Acromed [id number] Is Double - [id number] Implanted:Qty : 4 on 05/13/2010 at [facility] Right: Shoulder JNJ : [employer] [id number] / / documented as of this encounter Procedures Procedure Name Priority Date/Time Associated Diagnosis Comments XR CHEST 2 VIEWS Routine 12/06/2023 CHEMISTRY-OUTSIDE Routine 12/06/2023 documented in this encounter Results * (ABNORMAL) CHEMISTRY-OUTSIDE (12/06/2023) Not all results display below - see scan for full detail OUTSIDE LAB (SEE SCANNED REPORT) Comment:SCAN INCLUDES: PT/IN R, PTT, UA, CBCD, CMP CREATININE-OUTSI DE LAB 0.65 0.6 - 1.4 MG/DL OUTSIDE LAB (SEE SCANNED REPORT) EGFR-OUTSIDE LAB 95.2 ML/MIN OUT SIDE LAB (SEE SCANNED REPORT) POTASSIUM-OUTSID E LAB 4.6 3.5 - 5.1 MMOL/L OUTSIDE LAB (SEE SCANNED REPORT) GLUCOSE-OUTSIDE LAB 96 70 - 99 MG/DL OUTSIDE LAB (SEE SCANNED REPORT) HOURS FASTING OUTSID E LAB (SEE SCANNED REPORT) TRIGLYCERIDES-OU TSIDE LAB OUTSIDE LAB (SEE SCANNED REPORT) CHOLESTEROL-OUTS VIRGILIO LAB OUTSIDE LAB (SEE SCANNED REPORT) HDL-OUTSIDE LAB OUTS VIRGILIO LAB (SEE SCANNED REPORT) CHOL/HDL RATIO-OUTSIDE LAB OUTSIDE LAB (SEE SCANNED REPORT) LDL (CALCULATED)-OUT SIDE LAB OUTSIDE LAB (SEE SCANNED REPORT) LDL (DIRECT MEASURE)-OUTSIDE LAB OUTSIDE LAB (SEE SCANNED REPORT) HEMOGLOBIN, [id number] LAB OUTSIDE LAB (SEE SCANNED REPORT) PHOSPHORUS-OUTSI DE LAB OUTSIDE LAB (SEE SCANNED REPORT) PTH-OUTSIDE LAB OUTS VIRGILIO LAB (SEE SCANNED REPORT) MICROALBUMIN RATIO-OUTSIDE LAB OUTSIDE LAB (SEE SCANNED REPORT) PROTEIN, UA-OUTSIDE LAB NEGATIVE NEGATIVE OUTSIDE LAB (SEE SCANNED REPORT) HGB 13.9(A) 14.0 - 18.0 G/DL OUTSIDE LAB (SEE SCANNED REPORT) 12/06/2023 Tavo Pierce DO LABORATORY OUTSIDE LAB (SEE SCANNED REPORT) * XR CHEST 2 VIEWS (12/06/2023) Anatomical Region Laterality Modality Chest Other 12/06/2023 Tavo Pierce DO RADIOLOGY ( RAD GENERAL) documented in this encounter Advance Directives Latest Code Status on File Code Status Date Activated Date Inactivated Comments Full Code 10/31/2008 6:31 PM 11/01/2008 1:12 AM Code Status History Code Status Date Activated Date Inactivated Comments Full Code 04/26/2008 1:38 PM 04/26/2008 9:54 PM Full Code 09/09/2007 11:37 AM 09/09/2007 11:33 PM Care Teams Joy Loader Relationship Specialty Start Date End Date Radhames Gama PA-C [address] [facility] [address] [place] [phone] PCP - General Physician Performance Instructor 08/10/23 documented as of this encounter
[2023-12-22] MEDS: oxyCODONE HCL IR 5 MG TAB (IMMEDIATE RELEASE) PO PRN (16:05)
[2023-12-22] MEDS: GABAPENTIN 400 MG CAP PO SCH (16:06)
[2023-12-22] MEDS: traMADol HCL 50 MG TABLET PO PRN (19:43)
[2023-12-22] MEDS: DOCUSATE SODIUM/SENNA 50/8.6MG TAB PO SCH (20:47)
[2023-12-22] MEDS: ATORVASTATIN 40 MG TAB PO SCH (20:47)
[2023-12-22] MEDS: MAGNESIUM OXIDE 400 MG TAB PO SCH (20:47)
[2023-12-22] MEDS: ASPIRIN 81 MG ECTAB PO SCH (20:48)
[2023-12-22] MEDS: TERAZOSIN HCL 5 MG CAP PO SCH (20:48)
[2023-12-22] MEDS: DULoxetine HCL 60 MG CAP PO SCH (20:48)
[2023-12-23] MEDS: POLYETHYLENE (MIRALAX) 17 GM PACK PO SCH (06:07)
[2023-12-23 07:15] LABS: Basophils # (auto) 0.01 K/uL (0.00-0.20); Basophils % (auto) 0.1 %; Eosinophils # (auto) 0.01 K/uL (0.00-0.50); Eosinophils % (auto) 0.1 %; Hemoglobin 11.7 g/dl (14.0-18.0); Immature Granulocytes # (auto) 0.03 K/uL (0.01-0.20); Immature Granulocytes % (auto) 0.4 %; Lymphocytes # (auto) 0.79 K/uL (1.20-3.40); Lymphocytes % (auto) 10.5 %; Mean Corpuscular Hgb Conc 32.5 g/dL (32.0-36.0); Mean Corpuscular Volume 95.2 fL (80.0-100.0); Mean Platelet Volume 9.5 fL (9.4-12.4); Neutrophils # (auto) 5.78 K/uL (1.40-6.50); Neutrophils % (auto) 76.9 %; Platelet Count 162 K/uL (130-400); RDW Coefficient of Variation 12.8 % (11.5-14.5); RDW Standard Deviation 44.9 fL (36.4-46.3); Red Blood Count 3.78 M/uL (4.70-6.10); White Blood Count 7.52 K/ul (4.8-10.8)
[2023-12-23 07:47] LABS: BUN Creatinine Ratio 26.5 (10-20); Calcium 7.9 mg/dl (8.6-10.3); Creatinine Clr Calc Pharmacy 132.6 ml/min; Est GFR (African American) 108.3 ml/min; Est GFR (Non-African American) 93.4 ml/min; Potassium 3.9 mmol/L (3.5-5.1)
[2023-12-23] MEDS: amLODIPine BESYLATE 5 MG TAB PO SCH (09:34)
[2023-12-23] MEDS: METOPROLOL SUCC 25MG EXT REL TAB PO SCH (09:35)
[2023-12-23] MEDS: dexAMETHasone 6 MG in SYRINGE 0 ML IV SCH (09:36)
[2023-12-23] MEDS: OXYBUTYNIN CHLORIDE XL 5 MG TABCR PO SCH (09:36)
[2023-12-23] MEDS: PANTOprazole 40 MG TAB PO SCH (09:36)
--- NOTE | 2023-12-23 12:06 | Orthopedic Progress Note ---
Date of Service December 23, 2023 Assessment & Plan (1) Myelopathy concurrent with and due to spinal stenosis of thoracic region: Plan: At this time we will continue physical therapy monitor his SUSANNA output anticipate discharge home in the next few days. Admission and Anticipated Discharge Date Admission Date: December 22, 2023 Subjective Back pain is controlled leg symptoms improved Physical Exam Physical Exam: Patient is in the chair at the bedside. Is good strength testing. Results & Data Vital Signs (Past 12 Hours) Vital Signs Temp Pulse Resp BP Pulse Ox O2 Del Method 12/23/23 07:18 36.8 C 92 H 16 114/65 93 Room Air 12/23/23 03:51 36.9 C 84 20 104/49 L 96 CPAP Queries Orthopedic Spine Obesity: Yes
[2023-12-23] MEDS: ACETAMINOPHEN 500 MG TAB PO PRN (12:40)
--- NOTE | 2023-12-23 13:29 | Hospitalist Progress Note ---
Date of Service December 23, 2023 Assessment & Plan (1) S/P spinal surgery: (2) Myelopathy concurrent with and due to spinal stenosis of thoracic region: Plan: Post op day# 1 S/P removal of hardware T12, decompression and fusion T7-T12 by Dr Kari ECHAVARRIA#300ml Pain management per ortho Wound management per ortho PT/OT as appropriate DVT prophylaxis per ortho Incentive spirometry Acute blood loss anemia in post op setting Hgb 11.7 today (pre-op hgb 13.9) Asymptomatic, hemodynamically stable Repeat CBC in AM (3) HTN (hypertension): Plan: Stable Continue amlodipine, metoprolol succinate with holding parameters Held Lasix given lower normal BP. Plan to resume tomorrow AM (4) Dyslipidemia: Plan: Chronic Continue atorvastatin (5) CAD (coronary artery disease): Plan: CAD S/P RCA stent Resume aspirin as per ortho Continue metoprolol succinate, atorvastatin Follows with [facility] cardiology (6) BPH (benign prostatic hypertrophy): Plan: Continue terazosin (7) LOLI on CPAP: Plan: Continue CPAP HS (8) Restless leg syndrome: Plan: Continue ropinirole, pramipexole DVT Prophylaxis SCDs Disposition per primary service Follows with Radhames Gama PA-C for routine care Pt was seen and care coordinated with Dr. Davis. See addendum. I spent a total of 40 minutes coordinating, documenting, and providing care for this patient excluding time spent in the performance of separately billed services. Admission and Anticipated Discharge Date Admission Date: December 22, 2023 Supervising Physician Co-Signing Physician Notes Patient seen and examined independently. Discussed with above provider. Patient is sitting up on the chair at the side of the bed comfortably. Is comfortable; denies any fever, chills, chest pain, shortness of breath or abdominal pain. Vitals are stable; saturating well on room air. Continue incentive spirometry, remove Steele; trial of void. I have reviewed the advanced practitioner's documentation, and I agree with, and take responsibility for the plan of care I spent a total of 15 minutes coordinating, documenting, and providing care for this patient excluding time spent in the performance of separately billed services. All of the aforementioned completed while collaborating with the assigned advanced practitioner for a full treatment plan Subjective Seen and examined in [facility] bed 2 in follow-up for spinal surgery. Feeling well today with some surgical site discomfort. Still having tingling in his right ring and pinky finger and per discussion with Dr. Pierce this morning, thinks it was from surgical positioning and should resolve on its own. No chest pain, shortness of breath, nausea, vomiting, abdominal pain, dysuria. Still with Steele catheter in place, plans to remove today. Not yet passing flatus. 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 Review of Systems Review of Systems: At least ten systems reviewed and negative except as noted in the HPI. Physical Exam Physical Exam: Gen: WD/WN, NAD, sitting in bedside chair, A&Ox3 HEENT: Normocephalic, atraumatic, conjunctivae moist, sclerae anicteric, mucous membranes moist Lung: Clear to Auscultation bilaterally, no wheezes/rales/rhonchi Heart: Regular rate, regular rhythm, no murmurs, rubs, or gallops Abdomen: Soft, NT, ND +BS x 4 Extremities: + Spinal dressing visualized with some soakage, notified RN to change. SUSANNA drain visualized. No edema, + LLE brace, known foot drop Skin: Warm, no rash Results & Data Results & Data Vital Signs (Past 12 Hours) Vital Signs Temp Pulse Resp BP Pulse Ox O2 Del Method 12/23/23 07:18 36.8 C 92 H 16 114/65 93 Room Air 12/23/23 03:51 36.9 C 84 20 104/49 L 96 CPAP Laboratory Results Short CBC 12/23/23 Range/Units 06:12 WBC 7.52 (4.8-10.8) K/ul Hgb 11.7 L (14.0-18.0) g/dl Hct 36.0 L (42.0-52.0) % Plt Count 162 (130-400) K/uL BMP 12/23/23 06:12 Sodium 138 Potassium 3.9 Chloride 105 Carbon Dioxide 29 BUN 18 Creatinine 0.68 Glucose 106 H Calcium 7.9 L Diagnostic Findings Thoracic Spine X-Ray 12/22/23 00:00 FL thoracic spine 2V CLINICAL HISTORY: T12 SCREW REMOVAL, T7-T10 DECOMP, T7-T12 FUSION TECHNIQUE: 2 views were obtained with the C-arm in the OR with the above procedure. Total fluoroscopy time was 32.7 seconds. Radiation dose was 14.24 mGy. Comparison: Comparison is made to thoracic spine radiographs 12/06/2023 FINDINGS/IMPRESSION: Intraoperative images were obtained of T12 screw removal, T7-T10 decompression, and T7-T12 fusion. Please correlate with intraoperative fluoroscopy and operative report. ACT 112: Negative or not required by law. Electronically signed by: Adolph Lopez M.D. 12/22/2023 12:59 PM
[2023-12-23] MEDS: PRAMIPEXOLE DIHYDROCHLO 0.5 MG TAB PO SCH (18:33)
[2023-12-24] MEDS: MAGNESIUM HYDROXIDE SUSP 30 ML UDC PO PRN (02:32)
[2023-12-24 06:15] LABS: Hematocrit (blood only) 32.5 % (42.0-52.0); Mean Corpuscular Hemoglobin 30.9 pg (25.0-34.0); Mean Corpuscular Hgb Conc 33.8 g/dL (32.0-36.0); Mean Corpuscular Volume 91.3 fL (80.0-100.0); Mean Platelet Volume 9.7 fL (9.4-12.4); Platelet Count 170 K/uL (130-400); RDW Coefficient of Variation 12.8 % (11.5-14.5); RDW Standard Deviation 42.7 fL (36.4-46.3); Red Blood Count 3.56 M/uL (4.70-6.10); White Blood Count 8.14 K/ul (4.8-10.8)
[2023-12-24 06:38] LABS: BUN Creatinine Ratio 24.7 (10-20); Calcium 8.2 mg/dl (8.6-10.3); Creatinine Clr Calc Pharmacy 117.1 ml/min; Est GFR (African American) 102.9 ml/min; Est GFR (Non-African American) 88.8 ml/min; Potassium 3.9 mmol/L (3.5-5.1)
--- NOTE | 2023-12-24 08:37 | Orthopedic Progress Note ---
Date of Service December 24, 2023 Assessment & Plan (1) Myelopathy concurrent with and due to spinal stenosis of thoracic region: Plan: Today we will continue physical therapy monitor his SUSANNA output anticipate discharge home this weekend. Admission and Anticipated Discharge Date Admission Date: December 22, 2023 Subjective Back pain controlled leg symptoms markedly improved Physical Exam Physical Exam: Patient is in bed. He has good strength testing. Is comfortable. Results & Data Vital Signs (Past 12 Hours) Vital Signs Temp Pulse Resp BP Pulse Ox O2 Del Method 12/24/23 07:29 37.2 C 84 18 120/64 92 Room Air Queries Orthopedic Spine Obesity: Yes
[2023-12-24] MEDS: FUROSEMIDE 40 MG TAB PO SCH (10:20)
--- NOTE | 2023-12-24 15:06 | Hospitalist Progress Note ---
Date of Service December 24, 2023 Assessment & Plan (1) S/P spinal surgery: (2) Myelopathy concurrent with and due to spinal stenosis of thoracic region: Plan: Post op day# 2 S/P removal of hardware T12, decompression and fusion T7-T12 by Dr Kari ECHAVARRIA#300ml Pain management per ortho Wound management per ortho PT/OT as appropriate DVT prophylaxis per ortho Incentive spirometry Acute blood loss anemia in post op setting Hgb stable at 11 (11.7 yesterday, pre-op hgb 13.9) Asymptomatic, hemodynamically stable Repeat H/H in AM (3) HTN (hypertension): Plan: Continue amlodipine, metoprolol succinate with holding parameters Resumed Lasix this morning (4) Dyslipidemia: Plan: Chronic Continue atorvastatin (5) CAD (coronary artery disease): Plan: CAD S/P RCA stent Resume aspirin as per ortho Continue metoprolol succinate, atorvastatin Follows with [facility] cardiology (6) BPH (benign prostatic hypertrophy): Plan: Continue terazosin (7) LOLI on CPAP: Plan: Continue CPAP HS (8) Restless leg syndrome: Plan: Continue ropinirole, pramipexole DVT Prophylaxis SCDs Disposition per primary service, likely tomorrow Follows with Radhames Gama PA-C for routine care Pt was seen and care coordinated with Dr. Davis. See addendum. I spent a total of 30 minutes coordinating, documenting, and providing care for this patient excluding time spent in the performance of separately billed services. Admission and Anticipated Discharge Date Admission Date: December 22, 2023 Supervising Physician Co-Signing Physician Notes Patient seen and examined at bedside. Discussed with over provider. Patient is recovering well after the procedure. Trial of void successful No bowel movement yet Encourage ambulation Incentive inspirometry I have reviewed the advanced practitioner's documentation, and I agree with, and take responsibility for the plan of care I spent a total of 15 minutes coordinating, documenting, and providing care for this patient excluding time spent in the performance of separately billed services. All of the aforementioned completed while collaborating with the assigned advanced practitioner for a full treatment plan Subjective Patient seen and examined in [facility] bed 2 in follow-up of back surgery. Paresthesias of right hand have completely resolved. Pain is minimal and at surgical site. Participating with therapy. Denies any fever, chest pain, lightheadedness, chest pain, shortness of breath, nausea, vomiting, abdominal pain, passing flatus but no postop bowel movement at this time. Potential discharge home tomorrow per primary service Review of Systems Review of Systems: At least ten systems reviewed and negative except as noted in the HPI. Physical Exam Physical Exam: Gen: WD/WN, NAD, sitting in bedside chair, A&Ox3 HEENT: Normocephalic, atraumatic, conjunctivae moist, sclerae anicteric, mucous membranes moist Lung: Clear to Auscultation bilaterally, no wheezes/rales/rhonchi Heart: Regular rate, regular rhythm, no murmurs, rubs, or gallops Abdomen: Soft, NT, ND +BS x 4 Extremities: + Spinal dressing c/d/i, SUSANNA drain visualized. No edema, + LLE brace, known foot drop Skin: Warm, no rash Results & Data Results & Data Vital Signs (Past 12 Hours) Vital Signs Temp Pulse Resp BP Pulse Ox O2 Del Method 12/24/23 07:29 37.2 C 84 18 120/64 92 Room Air Laboratory Results Short CBC 12/24/23 Range/Units 05:35 WBC 8.14 (4.8-10.8) K/ul Hgb 11.0 L (14.0-18.0) g/dl Hct 32.5 L (42.0-52.0) % Plt Count 170 (130-400) K/uL BMP 12/24/23 05:35 Sodium 137 Potassium 3.9 Chloride 104 Carbon Dioxide 29 BUN 19 Creatinine 0.77 Glucose 103 H Calcium 8.2 L Diagnostic Findings Thoracic Spine X-Ray 12/22/23 00:00 FL thoracic spine 2V CLINICAL HISTORY: T12 SCREW REMOVAL, T7-T10 DECOMP, T7-T12 FUSION TECHNIQUE: 2 views were obtained with the C-arm in the OR with the above procedure. Total fluoroscopy time was 32.7 seconds. Radiation dose was 14.24 mGy. Comparison: Comparison is made to thoracic spine radiographs 12/06/2023 FINDINGS/IMPRESSION: Intraoperative images were obtained of T12 screw removal, T7-T10 decompression, and T7-T12 fusion. Please correlate with intraoperative fluoroscopy and operative report. ACT 112: Negative or not required by law. Electronically signed by: Adolph Lopez M.D. 12/22/2023 12:59 PM
[2023-12-25 05:55] LABS: Hematocrit (blood only) 34.2 % (42.0-52.0); Hemoglobin 11.5 g/dl (14.0-18.0)
--- NOTE | 2023-12-25 08:10 | Discharge Summary ---
Date of Service December 25, 2023 Admission HPI Per Admitting Provider This is a 73-year-old male that presents with evidence of thoracic myelopathy and is here for surgical intervention. Principal Diagnosis Lumbar spinal stenosis with neurogenic claudication Discharge Data Allergies Allergy/AdvReac Type Severity Reaction Status Date / Time tamsulosin Allergy Intermediate ITCHY RASH Verified 12/22/23 08:25 Sulfa (Sulfonamide AdvReac Mild rash/itching Verified 12/22/23 08:25 Antibiotics) per PCP records Consultations 12/22/23 14:18 Consult Hospitalist Routine Procedures Performed Operation Date: 12/22/23 09:35 Actual Procedures p T7-T10 Decompression, T7-T12 Fusion, Spinal Cord Monitoring(Not Applicable) - Tavo Pierce DO s T12 Screw Removal, (Not Applicable) - Tavo Pierce DO Ordered Studies 12/22/23 [place] thoracic spine 2V Routine Hospital Course (1) Lumbar stenosis with neurogenic claudication: Patient with lumbar decompression fusion Rodrigue Gallagher taken to orthopedic for postoperative. Postoperatively he progressed appropriately. Leg symptoms markedly improved. Tolerating physical therapy well. SUSANNA drain decreased appropriate. Excellent strength testing. Subsidy discharged home. Discharge orders instructions from the chart for further review. Total Time Total Time Spent Total Time Spent (In Minutes): 20 minutes Discharge Plan Discharge Items Patient Disposition: Home - Self-Care Reason For Visit: Spinal Cord Compression, Thoracic Myelopathy Discharge Diagnosis: Thoracic spinal stenosis with myelopathy Activity: As commented below Non-emergency contact: Primary Care Provider Call non-emergency contact if: you have any medication questions Follow-up/Referrals: Isabel Vance MD [Outside Practitioners] - Diet: Regular Addtl Attending Provider Instructions: ACTIVITY RECOMMENDATIONS: SELF CARE INSTRUCTIONS AFTER THORACIC/LUMBAR FUSIONS 1. You may walk to your tolerance. It is good exercise for your legs and back. Expect some back and intermittent leg aches and pains. 2. You may perform "counter-top" level activities (make a sandwich, nellie with a project, etc.). 3. No bending or lifting of more than 10 pounds or back twisting of any nature (roll like a log when turning in bed). 4. You may ride in a car for 20-30 minutes at a time. No driving until after your first visit with your doctor. 5. Frequent changes of position and restricting sitting to 30 minutes at a time will help limit the amount of back spasms and stiffness you may experience. 6. You may discontinue the use of ambulatory aids (cane, crutches, etc.) once your strength and confidence allow. 7. You may sales and marketing manager the shower and let water strike your incision when you arrive home at least once daily. Do not take a tub bath, sit in a hot tub or go into a swimming pool until after your first recheck in the office. SPECIAL CARE INSTRUCTIONS: VERY IMPORTANT TO READ AND REVIEW A. Your surgical incision has been closed with a cosmetic suture under the skin that will dissolve in about 6 weeks. In 14 days, you can use a pair of clean scissors and cut the suture that is left outside of the skin at the ends of your incision. 1. The small skin tapes can be removed 7 days after surgery if they have not fallen off by that point. 2. You may keep the wound open to air as much as possible to promote healing after post-op day number 5 unless told otherwise by your doctor. 3. If you think the wound looks like it is becoming infected (redness or worsening drainage) and/or you are experiencing fever, chill or worsening back pain and muscle spasms, contact the office so that we may evaluate you as soon as possible. B. Complications are uncommon, but please contact us if you have any signs or symptoms of: 1. wound infection (fever higher than 102.5 degrees F, redness, separation of wound, drainage, or increasing pain from the incision) 2. blood clots in legs (pain, swelling, redness and warmth in legs) 3. urinary tract infection (fever higher than 102.5 degrees F, burning upon urination or increased frequency of urination) 4. nerve problems (inability to walk on your toes or heels, numbness, loss of bowel or bladder control) 5. any other symptoms that concern you C. Please call the office at if you have any concerns or questions about your operation or recovery. D. No smoking! Smoking drastically decreases the chance of a solid fusion. E. Do not take any anti-inflammatory medications (Indocin, Advil, Motrin, Aspirin, Naprosyn, etc.) as these may inhibit the chance of a solid fusion. Tylenol is okay to take for pain. MANAGING PAIN AFTER SPINAL SURGERY 1. Narcotic medication is intended for short-term use and will be provided for surgical pain. Surgical pain usually lasts for a period of 4-6 weeks. Narcotic medication includes Percocet, Vicodin, Darvocet, Tylenol #3 or Lortab. 2. Longer-term pain is more appropriately treated with non-narcotic medication such as Tylenol ES. 3. Muscle spasm is not appropriately treated with narcotics. Muscle relaxers such as Soma, Flexeril or Skelaxin can be used along with Tylenol ES. 4. Remember that we all live with some "aches and pains". This is not unusual or uncommon after an injury or as we get older. a. Back pain is expected and may include muscle spasms for 4 to 6 weeks after surgery. The pain should gradually improve. If the pain worsens for no apparent reason, please contact the office. b. Intermittent leg pain may also be experienced and should not be concerned about unless it worsens for no apparent reason. If so, please contact the office. 5. We will provide appropriate medication within the normal guidelines of their prescribed use. We will also be very cautious and aware of potential abuse and extended duration of patients' medication needs. a. Pain medications are for your comfort and to assist with sleep and rest so that the tissue can heal. They are not provided in order to return to normal activity and should not be used through the day. To do so or worsening pain at night can result from ongoing tissue damage and development of tolerance to the prescribed medicine. 6. Please allow 2-3 days to process refills. Prescriptions will not be mailed but must be picked up at the office. FOLLOW UP VISIT: Keep your scheduled follow-up appointment. Any questions, please call the office at . Pending Studies at Discharge: No Stand-Alone Forms: My Spare Change Payments, Smoking Cessation Medications and DC Order Prescriptions: New tramadol 50 mg tablet 50 mg PO Q6H PRN (Reason: pain, moderate) Qty: 30 0RF oxycodone 5 mg tablet 5 mg PO Q6H PRN (Reason: pain) Qty: 30 0RF Continued celecoxib [Celebrex] 200 mg Capsule 200 mg PO QAM furosemide [Lasix] 40 mg Tablet 40 mg PO QAM atorvastatin [Lipitor] 40 mg Tablet 40 mg PO PM oxybutynin chloride 10 mg Tablet Extended Release 24hr 10 mg PO QAM tizanidine [Zanaflex] 4 mg Tablet 4 mg PO HS PRN (Reason: Muscle Pain) gabapentin [Neurontin] 400 mg Capsule 400 mg PO TID amlodipine [Norvasc] 5 mg Tablet 5 mg PO QAM omeprazole 40 mg Capsule,Delayed Release(Dr/Ec) 40 mg PO QAM acetaminophen 500 mg Tablet 1,000 mg PO HS magnesium oxide 400 mg (241.3 mg magnesium) Tablet 400 mg PO QPM nitroglycerin 0.4 mg Tablet, Sublingual 0.4 mg sublingual UD PRN (Reason: Chest Pain) metoprolol succinate [Toprol XL] 25 mg Tablet Extended Release 24 Hr 25 mg PO QAM ibuprofen 600 mg Tablet 600 mg PO HS terazosin 10 mg Capsule 10 mg PO HS saw palmetto 320 mg Capsule 640 mg PO QAM Rx Instructions: give with food (meal/snack) duloxetine [Cymbalta] 60 mg Capsule,Delayed Release(Dr/Ec) 60 mg PO QPM methylcellulose (with sugar) Powder In Packet 1 ea PO QAM ropinirole 2 mg Tablet Extended Release 24 Hr 2 mg PO HS alfalfa 250 mg Tablet 1,200 mg PO HS Vasculera 630 mg Tablet 1 tab PO QAM ABC Complete Senior Men's [phone] mcg Tablet 1 tab PO QAM aspirin 81 mg Capsule 81 mg PO QPM pramipexole 0.5 mg tablet 0.5 mg PO HS Discharge Orders: Discharge Order (Routine); Ordered 12/25/23 Ordered By: Tavo Pierce Admission Data Admit Date/Time: 12/22/23 12:48 Attending Provider: Tavo Pierce Admit Provider: Tavo Pierce Primary Care Provider: Radhames Gama Other Providers: Jessica Riley; Rafita Davis
--- NOTE | 2023-12-25 14:55 | Hospitalist Progress Note ---
Date of Service December 25, 2023 Assessment & Plan (1) S/P spinal surgery: (2) Myelopathy concurrent with and due to spinal stenosis of thoracic region: Plan: Post op day# 3 S/P removal of hardware T12, decompression and fusion T7-T12 by Dr Kari ECHAVARRIA#[id number] Pain management per ortho Wound management per ortho PT/OT as appropriate DVT prophylaxis per ortho Incentive spirometry Acute blood loss anemia in post op setting Hgb stable at 11 Asymptomatic, hemodynamically stable (3) HTN (hypertension): Plan: Continue amlodipine, metoprolol succinate with holding parameters Continue on Lasix (4) Dyslipidemia: Plan: Chronic Continue atorvastatin (5) CAD (coronary artery disease): Plan: CAD S/P RCA stent Resume aspirin as per ortho Continue metoprolol succinate, atorvastatin Follows with [facility] cardiology (6) BPH (benign prostatic hypertrophy): Plan: Continue terazosin (7) LOLI on CPAP: Plan: Continue CPAP HS (8) Restless leg syndrome: Plan: Continue ropinirole, pramipexole DVT Prophylaxis SCDs Patient discharged home. Follow-up with PCP. Admission and Anticipated Discharge Date Admission Date: December 22, 2023 Subjective Patient seen and examined at bedside. Comfortable; not in distress. Denies fever, chills, chest pain, shortness of breath, abdominal pain or urinary symptoms. No significant overnight events Had a bowel movement overnight Review of Systems Review of Systems: All systems reviewed & are unremarkable except as noted in Subjective Physical Exam Physical Exam: Gen: WD/WN, NAD, sitting in bedside chair, A&Ox3 HEENT: Normocephalic, atraumatic, conjunctivae moist, sclerae anicteric, mucous membranes moist Lung: Clear to Auscultation bilaterally, no wheezes/rales/rhonchi Heart: Regular rate, regular rhythm, no murmurs, rubs, or gallops Abdomen: Soft, NT, ND +BS x 4 Extremities: + Spinal dressing c/d/i, SUSANNA drain visualized. No edema, + LLE brace, known foot drop Skin: Warm, no rash Results & Data Results & Data Vital Signs (Past 12 Hours) Vital Signs Temp Pulse Resp BP Pulse Ox O2 Del Method 12/25/23 08:22 36.6 C 66 18 111/66 96 Room Air
== END 2023-12-25 13:44 | disposition home or self-care (01) | DRG 460 ==
LOC: ASU 07:55 → 3N 12:48